=== PATIENT | male | born 1955 ===

== ENCOUNTER 2017-12-06 11:09 | Inpatient (IN) | payer BC ==
[2017-12-06] MEDS ORDERED: Iodixanol 320 mg/ml 150 ml Bottle IV ONE (11:20)
--- NOTE | 2017-12-06 11:30 | CT ---
PROCEDURE: CT HEAD WITHOUT CONTRAST. HISTORY: code stroke COMPARISON: None available. TECHNIQUE: Axial computed tomography images were obtained through the head/brain without intravenous contrast. Radiation dose: Total exam DLP = 884.68 mGy-cm. This CT exam was performed using one or more of the following dose reduction techniques: Automated exposure control, adjustment of the mA and/or kV according to patient size, and/or use of iterative reconstruction technique. FINDINGS: HEMORRHAGE: No intracranial hemorrhage. BRAIN: No mass effect or edema. No atrophy or chronic microvascular ischemic changes. VENTRICLES: Unremarkable. No hydrocephalus. CALVARIUM: Unremarkable. PARANASAL SINUSES: Unremarkable as visualized. No significant inflammatory changes. MASTOID AIR CELLS: Unremarkable as visualized. No inflammatory changes. OTHER FINDINGS: None. IMPRESSION: Normal CT of the Head. No evidence of intracranial hemorrhage. No evidence of acute infarct. The findings in this examination were discussed, by telephone, with BREEZY Guajardo at 11:27 a.m. on 12/06/2017.
[2017-12-06 11:42] LABS: BASO % 0.4 % (0.0-2.0); HEMOGLOBIN 15.5 g/dL (12.0-18.0); LYMPH # 0.7 K/uL (1.0-4.3); LYMPH % 6.6 % (20.0-40.0); MEAN CELL VOLUME 87.3 fL (80.0-94.0); MEAN CORPUSCULAR HEMOGLOBIN 30.2 pg (27.0-31.0); MEAN CORPUSCULAR HGB CONC 34.6 g/dL (33.0-37.0); MEAN PLATELET VOLUME 9.8 fL (7.2-11.7); MONO # 0.4 K/uL (0.0-0.8); MONO % 3.8 % (0.0-10.0); NEUT # 9.1 K/uL (1.8-7.0); NEUT % 89.2 % (50.0-75.0); PLATELET COUNT 215 K/uL (130-400); RBC 5.12 Mil/uL (4.40-5.90); RED CELL DISTRIBUTION WIDTH 13.6 % (11.5-14.5); WHITE BLOOD COUNT 10.2 K/uL (4.8-10.8)
--- NOTE | 2017-12-06 11:49 | C.PDOC ---
History Of Present Illness 62 y/o male presents to ED with complaints of right side persistent paralysis associated with headache and slurred speech that began today after he woke up. Pt states he does not have any medical problems and was feeling fine last night. However, he woke up at 2AM and he was not able to move but went back to sleep and when he woke up again his symptoms worsened. He cannot move his right arm or leg and his speech is slurred. He was brought to ED with EMS, BP elevated and c/o generalized headache. Time Seen by Provider: 12/06/17 11:16 Chief Complaint (Nursing): Weakness/Neurological Deficit History Per: Patient History/Exam Limitations: clinical condition Onset/Duration Of Symptoms: Hrs Current Symptoms Are (Timing): Still Present Activity At Onset Of Symptoms: Lying Associated Symptoms Preceding Syncopal Episode: No Predromal Symptoms (Sudden Onset) Seizure Or Post-ictal Symptoms: None Possible Causative Factor(s): denies: Vertigo, Lightheaded W/Standing, New Medications Fall Associated With With Symptoms: No Recent travel outside of the [place]: No - Symptoms Of CVA Associated Symptoms: Impaired Speech. denies: Seizure Activity, New Vision Deficit(Left), New Vision Deficit(Right) Character Of Deficits: Right: Weakness Recent Head Trauma: No Past Medical History Reviewed: Historical Data, Nursing Documentation, Vital Signs Vital Signs: Last Vital Signs Temp 97.9 F 12/06/17 11:16 Pulse 105 H 12/06/17 12:28 Resp 20 12/06/17 12:28 BP 149/86 12/06/17 12:28 Pulse Ox 97 12/06/17 13:18 - Medical History PMH: No Chronic Diseases Surgical History: No Surg Hx Family History: States: No Known Family Hx - Social History Hx Alcohol Use: No Hx Substance Use: No Review Of Systems Constitutional: Positive for: Other (Slurred speech). Negative for: Fever, Chills Eyes: Negative for: Vision Change Respiratory: Negative for: Cough Gastrointestinal: Negative for: Nausea, Vomiting, Diarrhea Neurological: Positive for: Weakness (Right sided), Headache Physical Exam - Physical Exam Appears: Non-toxic, Other (dense right side paralysis) Skin: Warm, Dry Head: Atraumatic, Normacephalic Eye(s): bilateral: Normal Inspection, PERRL, EOMI Oral Mucosa: Moist Neck: Normal ROM Chest: Symmetrical, No Tenderness Cardiovascular: Rhythm Regular Respiratory: Normal Breath Sounds Gastrointestinal/Abdominal: Soft, No Tenderness Extremity: Other (Cannot move right arm or leg; no sensory loss. Babinski toes: right side equivocal; left toe upgoing) Pulses: Left Carotid: Normal, Right Carotid: Normal Neurological/Psych: Oriented x3, No Normal Speech, Normal Cognition, No Normal Cranial Nerves, No Normal Motor, Normal Sensation, Dysarthria, Other (not ataxic ) Gait: Unable To Assess Other Neurological Findings: Facial Palsy (Right sided), Tongue Deviation ( Right sided) Extremity: Right: No Movement, Left: No Drift, Upper: No Drift, No Movement, Lower: No Drift, No Movement ED Course And Treatment - Laboratory Results Result Diagrams: 12/06/17 11:34 12/06/17 11:34 Lab Interpretation: Abnormal ECG: Interpreted By Nh ECG Rhythm: Sinus Tachycardia (with anterior and inferior infarcts and lateral subendocardial injury/ischemia), R BBB (incomplete) O2 Sat by Pulse Oximetry: 97 (RA) Pulse Ox Interpretation: Normal - Radiology CXR: Interpreted by Nh CXR Interpretation: Yes: No Acute Disease - CT Scan/US CT Angiography of the Brain Other Rad Studies (CT/US): Read By Radiologist, Radiology Report Reviewed CT/US Interpretation: PROCEDURE: CT Angiography of the Brain. HISTORY: right sided paralysis. COMPARISON: None available. TECHNIQUE: CT angiography of the intracranial arteries as well as major arteries through the neck was performed. Coronal and sagittal maximum intensity projection reformated images were generated. This CT exam was performed using one or more of the following dose reduction techniques: Automated exposure control, adjustment of the mA and/ or kV according to patient size, and/or use of iterative reconstruction technique. FINDINGS: INTERNAL CEREBRAL ARTERIES: Unremarkable. The skull base , petrous, cavernous and supraclinoid segments are bilaterally widely patent. ANTERIOR CEREBRAL ARTERIES: Unremarkable. A1 and A2 segments are widely patent. Smaller distal branches unremarkable, as visualized. MIDDLE CEREBRAL ARTERIES: Unremarkable. M1 and M2 segments are widely patent. Perisylvian branches grossly symmetric. POSTERIOR CIRCULATION: Basilar Artery: Unremarkable. Distal Vertebral Arteries: Right dominant vertebrobasilar circulation. Posterior Cerebral Arteries: Unremarkable. Posterior Inferior Cerebellar Arteries: Unremarkable. NECK CTA: Common Carotid arteries: The bilateral common carotid appear widely patent from their origins to their bifurcations with no significant stenosis appreciated. No evidence to suggest common carotid artery dissection. Internal Carotid arteries: No significant stenosis is appreciated throughout the right cervical internal carotid artery segments and there is no evidence of dissection bilaterally either. Minimal right carotid bulbar atherosclerotic plaques identified. Moderate left carotid bulbar plaque is identified resulting and a moderate stenosis of 50 to 60 percent just distal to its origin. External Carotid arteries: Appear unremarkable bilaterally. Vertebral arteries: The right vertebral artery appears normal in caliber from its origins to junction with the basilar artery. High-grade stenosis identified in the proximal as well as of the distal cervical left vertebral artery segment and possibly also proximal to the foramen magnum. The distal most left vertebral artery appears patent nevertheless. Vertebrobasilar system appears right dominant. No definite pattern of dissection. Incidentally, the bilateral subclavian arteries are widely patent as well as the brachiocephalic artery. ANEURYSM/ VASCULAR MALFORMATIONS: None. OTHER FINDINGS: None. IMPRESSION: Symmetric [place] arterial blood flow as well as cavernous internal artery circulation. Right dominant vertebrobasilar circulation identified. Moderate proximal left ICA stenosis immediately distal to its origin. No significant stenosis right ICA. There are least 3 high-grade stenoses involving the left vertebral artery as discussed above with the right vertebral artery and basilar artery widely patent. Distal most left vertebral artery appears patent. CT Head Other Rad Studies (CT/US): Read By Radiologist, Radiology Report Reviewed CT/US Interpretation: PROCEDURE: CT HEAD WITHOUT CONTRAST. HISTORY: code stroke. COMPARISON: None available. TECHNIQUE: Axial computed tomography images were obtained through the head/brain without intravenous contrast. Radiation dose: Total exam DLP = 884.68 mGy-cm. This CT exam was performed using one or more of the following dose reduction techniques: Automated exposure control, adjustment of the mA and/or kV according to patient size, and/ or use of iterative reconstruction technique. FINDINGS: HEMORRHAGE: No intracranial hemorrhage. BRAIN: No mass effect or edema. No atrophy or chronic microvascular ischemic changes. VENTRICLES: Unremarkable. No hydrocephalus. CALVARIUM: Unremarkable. PARANASAL SINUSES: Unremarkable as visualized. No significant inflammatory changes. MASTOID AIR CELLS: Unremarkable as visualized. No inflammatory changes. OTHER FINDINGS: None. IMPRESSION: Normal CT of the Head. No evidence of intracranial hemorrhage. No evidence of acute infarct. The findings in this examination were discussed, by telephone, with BREEZY Guajardo at 11:27 a.m. on 12/06/2017. Progress Note: Ordered BBK, blood work, CXR, and CT head and neck. Reevaluation Time: 12:46 Reassessment Condition: Unchanged - Physician Consult Information Outcome Of Conversation: Case discussed with Dr Martinez and Dr Bae. Patient is not a candidate for TPA due to delayed arrival in ED from onset of symptoms. Integrelin to be ordered by Dr Martinez. Patient is accepted to ICU for care. NIHSS Stroke Scale 2 - Date/Time Evaluation Performed Date Performed: 12/06/17 Time Performed: 11:15 When Was NIHSS Performed: Baseline - How Severe is the Stroke Level of Consciousness: 0=Alert LOC to Questions: 0=Both comments correct LOC to commands: 0=Obeys both correctly Best Gaze: 0=Normal Visual: 0=No visual loss Facial: 3=Complete unilateral paralysis Motor Arm - Left: 0=No drift Motor Arm - Right: 4=No movement Motor Leg - Left: 0=No drift Motor Leg - Right: 4=No movement Limb Ataxia: 0=Absent Sensory: 0=Normal Best Language: 0=No aphasia Dysarthia: 2=Severe, near unintelligible or worse Extinction & Inattention (Neglect): 0=Normal, no object Score: 13 Disposition - Disposition Disposition: HOSPITALIZED Disposition Time: 12:53 Condition: SERIOUS - POA Present On Arrival: None - Clinical Impression Clinical Impression: Acute ischemic stroke, Acute NM - Scribe Statement The provider has reviewed the documentation as recorded by the Abbeyibe Mark Pike All medical record entries made by the Abbeyibpricilla were at my direction and personally dictated by me. I have reviewed the chart and agree that the record accurately reflects my personal performance of the history, physical exam, medical decision making, and the department course for this patient. I have also personally directed, reviewed, and agree with the discharge instructions and disposition.
--- NOTE | 2017-12-06 12:10 | CT ---
PROCEDURE: CT Angiography of the Brain. HISTORY: right sided paralysis COMPARISON: None available. TECHNIQUE: CT angiography of the intracranial arteries as well as major arteries through the neck was performed. Coronal and sagittal maximum intensity projection reformated images were generated. This CT exam was performed using one or more of the following dose reduction techniques: Automated exposure control, adjustment of the mA and/or kV according to patient size, and/or use of iterative reconstruction technique. FINDINGS: INTERNAL CEREBRAL ARTERIES: Unremarkable. The skull base, petrous, cavernous and supraclinoid segments are bilaterally widely patent. ANTERIOR CEREBRAL ARTERIES: Unremarkable. A1 and A2 segments are widely patent. Smaller distal branches unremarkable, as visualized. MIDDLE CEREBRAL ARTERIES: Unremarkable. M1 and M2 segments are widely patent. Perisylvian branches grossly symmetric. POSTERIOR CIRCULATION: Basilar Artery: Unremarkable. Distal Vertebral Arteries: Right dominant vertebrobasilar circulation. Posterior Cerebral Arteries: Unremarkable. Posterior Inferior Cerebellar Arteries: Unremarkable. NECK CTA: Common Carotid arteries: The bilateral common carotid appear widely patent from their origins to their bifurcations with no significant stenosis appreciated. No evidence to suggest common carotid artery dissection. Internal Carotid arteries: No significant stenosis is appreciated throughout the right cervical internal carotid artery segments and there is no evidence of dissection bilaterally either. Minimal right carotid bulbar atherosclerotic plaques identified. Moderate left carotid bulbar plaque is identified resulting and a moderate stenosis of 50 to 60 percent just distal to its origin. External Carotid arteries: Appear unremarkable bilaterally. Vertebral arteries: The right vertebral artery appears normal in caliber from its origins to junction with the basilar artery. High-grade stenosis identified in the proximal as well as of the distal cervical left vertebral artery segment and possibly also proximal to the foramen magnum. The distal most left vertebral artery appears patent nevertheless. Vertebrobasilar system appears right dominant. No definite pattern of dissection. Incidentally, the bilateral subclavian arteries are widely patent as well as the brachiocephalic artery. ANEURYSM/ VASCULAR MALFORMATIONS: None. OTHER FINDINGS: None. IMPRESSION: Symmetric [place] arterial blood flow as well as cavernous internal artery circulation. Right dominant vertebrobasilar circulation identified. Moderate proximal left ICA stenosis immediately distal to its origin. No significant stenosis right ICA. There are least 3 high-grade stenoses involving the left vertebral artery as discussed above with the right vertebral artery and basilar artery widely patent. Distal most left vertebral artery appears patent.
[2017-12-06 12:19] LABS: ALB/GLOB RATIO 1.2 (1.0-2.1); ALBUMIN 4.5 g/dL (3.5-5.0); ALT/SGPT 30 U/L (21-72); AST/SGOT 44 U/L (17-59); BLOOD UREA NITROGEN 16 mg/dL (9-20); CALCIUM 8.8 mg/dl (8.6-10.4); GFR AFRICAN-AMERICAN > 60; GFR NON-AFRICAN AMERICAN > 60; HDL CHOLESTEROL 35 mg/dL (30-70)
[2017-12-06 12:21] LABS: LDL CHOLESTEROL 189 mg/dL (0-129)
[2017-12-06 12:25] LABS: CK-MB 17.2 ng/mL (0.0-3.38)
[2017-12-06] MEDS ORDERED: Sodium Chloride 0.9% 1,000 ML IV ONE ×2 (12:26→12:58)
--- NOTE | 2017-12-06 12:30 | CP.PCM.CON ---
History of Present Illness - History of Present Illness History of Present Illness: Tele-Stroke Vascular Neurology Note: Video IN: 11:50 AM, Video OUT 12:05 PM Mr. Singh is a 62-year-old man with past medical history of hypertension who was last normal last evening, and woke up at around 2 AM, could not move, went back to sleep and woke up again this morning with right side weakness and difficulty with speech. He was brought to the ED by EMS and a code stroke was called at 11:15 AM. He was then taken to the CT scan and there was no significant evidence of ischemic or hemorrhagic changes. There was some concern for a possible area of hypodensity in the pontomedullary junction and the left vertebral artery was not visualized well prior to the vertebrobasilar junction. He was brought back to the room, where I examined him and calculated an NIHSS of 14 for right side hemiplegia, left facial droop and dysarthria with mild sensory changes. Review of Systems - Review of Systems All systems: reviewed and no additional remarkable complaints except Past Patient History - Past Social History Smoking Status: Unknown If Ever Smoked - PSYCHIATRIC Hx Substance Use: No - SURGICAL HISTORY Hx Surgeries: No Meds Allergies/Adverse Reactions: Allergies Allergy/AdvReac Type Severity Reaction Status Date / Time No Known Allergies Allergy Verified 12/06/17 11:14 Physical Exam - Neurological Exam Additional comments: Awake, alert and oriented. Severe dysarthria. CN 6 palsy on the left, and CN 7 palsy on the left. Right side hemiplegia. Left side is normal in motor function. Sensation is relatively preserved. Gait was not assessed. NIHSS = 14. Results - Vital Signs Recent Vital Signs: Last Vital Signs Temp 97.9 F 12/06/17 11:16 Pulse 105 H 12/06/17 11:55 Resp 20 12/06/17 11:55 BP 137/85 12/06/17 11:55 Pulse Ox 97 12/06/17 12:18 - Labs Result Diagrams: 12/06/17 11:34 Labs: Laboratory Results - last 24 hr 12/06/17 12/06/17 12/06/17 11:34 11:34 11:34 WBC 10.2 RBC 5.12 Hgb 15.5 Hct 44.7 MCV 87.3 MCH 30.2 MCHC 34.6 RDW 13.6 Plt Count 215 MPV 9.8 Neut % (Auto) 89.2 H Lymph % (Auto) 6.6 L [place] % (Auto) 3.8 Eos % (Auto) 0.0 Baso % (Auto) 0.4 Neut # 9.1 H Lymph # 0.7 L [place] # 0.4 Eos # 0.0 Baso # 0.0 PT 11.0 INR 1.0 APTT 28 Blood Type A NEGATIVE Assessment & Plan (1) Acute ischemic stroke Assessment and Plan: The patient likely has a brainstem infarct. His last known normal time is last night and therefor he is not a candidate for IV tPA. There is not an obvious large vessel occlusion on CTA, but he may have an occlusion of the vertebral artery, although this may also be a chronic finding. He is unable to swallow ( failed swallow eval), therefor I recommend the followin. Admit to ICU 2. Bolus with Integrillin 70 mcg/kg, and continue drip at 0.5 mcg/kg/min. 3. Keep head of bed at 15 degrees 4. Permissive HTN, only treat BP that is higher than 200/100 mm Hg for the next 24 hours 5. Fluids with NS bolus of 1 liter and continue at 100 mL/hr 6. NPO 7. PT/OT eval and treat 8. Lipid Panel, HbA1c, B12, folate, vitamin D levels 9. Echocardiogram with bubble study 10. MRI of the brain without contrast 11. Case management consult Thank you. Status: Acute Priority: High
[2017-12-06] MEDS ORDERED: Eptifibatide 20 mg/10mL Inj IVP ONE ×2 (12:31→13:07)
[2017-12-06 12:55] LABS: BANDS 1 % (0-2); LYMPHOCYTE 6 % (20-40); MONOCYTE 3 % (0-10); NEUTROPHIL 90 % (50-75); PLATELET ESTIMATE NORMAL (NORMAL); TOTAL CELLS COUNTED 100
[2017-12-06] MEDS: Eptifibatide 0.75 mg/ml 75 MG/100 ML BOTTLE IV SCH (13:25)
--- NOTE | 2017-12-06 14:25 | RAD ---
HISTORY: code stroke COMPARISON: No prior. FINDINGS: LUNGS: No focal consolidation. Coarsened interstitial markings bilaterally predominantly in the upper lobes. Nonspecific. PLEURA: No significant pleural effusion identified, no pneumothorax apparent. CARDIOVASCULAR: Normal. OSSEOUS STRUCTURES: No significant abnormalities. VISUALIZED UPPER ABDOMEN: Normal. OTHER FINDINGS: None. IMPRESSION: Coarsened interstitial markings bilaterally predominantly in the upper lobes. Nonspecific finding. Otherwise unremarkable.
--- NOTE | 2017-12-06 15:35 | CP.PCM.CON ---
History of Present Illness - History of Present Illness History of Present Illness: 62yo M. PMHx HTN. p/w right hemiparesis that started overnight, patient presented outside of tPA window. Admitted to ICU for monitoring while on integrillin drip. Review of Systems - Review of Systems All systems: reviewed and no additional remarkable complaints except - Neurological Neurological: Abnormal Speech, Weakness Past Patient History - Past Medical History & Family History Past Medical History?: Yes - Past Social History Smoking Status: Unknown If Ever Smoked - CARDIAC Hx Hypertension: Yes - PULMONARY Hx Respiratory Disorders: Yes Hx Asthma: Yes - NEUROLOGICAL Hx Neurological Disorder: Yes - HEENT Hx HEENT Problems: No Hx Blind: No Hx Cataracts: No Hx Deafness: No Hx Difficulty Chewing: No Hx Epistaxis: No - RENAL Hx Chronic Kidney Disease: No - ENDOCRINE/METABOLIC Hx Endocrine Disorders: No - HEMATOLOGICAL/ONCOLOGICAL Hx Blood Disorders: No - INTEGUMENTARY Hx Dermatological Problems: No - MUSCULOSKELETAL/RHEUMATOLOGICAL Hx Musculoskeletal Disorders: No - GASTROINTESTINAL Hx Gastrointestinal Disorders: No - GENITOURINARY/GYNECOLOGICAL Hx Genitourinary Disorders: No - PSYCHIATRIC Hx Substance Use: No - SURGICAL HISTORY Hx Surgeries: No - ANESTHESIA Hx Anesthesia: No Hx Anesthesia Reactions: No Hx Malignant Hyperthermia: No Has any member of the family had a problem w/ anesthesia?: No Meds Allergies/Adverse Reactions: Allergies Allergy/AdvReac Type Severity Reaction Status Date / Time No Known Allergies Allergy Verified 12/06/17 11:14 - Medications Medications: Current Medications Eptifibatide (Integrilin) 75 mg in 100 mls @ 2.442 mls/hr IV .Q24H EMMY PRN Reason: 0.5 MCG/KG/MIN Last Admin: 12/06/17 13:25 Dose: 2.442 mls/hr Sodium Chloride (Sodium Chloride 0.9%) 1,000 mls @ 100 mls/hr IV .Q10H ONE Stop: 12/06/17 22:57 Last Admin: 12/06/17 13:09 Dose: 100 mls/hr Physical Exam - Head Exam Head Exam: ATRAUMATIC, NORMAL INSPECTION, NORMOCEPHALIC - Eye Exam Eye Exam: EOMI, Normal appearance, PERRL - ENT Exam ENT Exam: Mucous Membranes Moist, Normal Exam - Respiratory Exam Respiratory Exam: Clear to Auscultation Bilateral, NORMAL BREATHING PATTERN - Cardiovascular Exam Cardiovascular Exam: REGULAR RHYTHM - GI/Abdominal Exam GI & Abdominal Exam: Normal Bowel Sounds, Soft. absent: Tenderness - Neurological Exam Neurological exam: Alert, Oriented x3 (right hemiparesis, right facial droop, left CN3 palsy) Results - Vital Signs Recent Vital Signs: Last Vital Signs Temp 98.2 F 12/06/17 13:30 Pulse 102 H 12/06/17 15:00 Resp 14 12/06/17 15:00 BP 131/82 12/06/17 14:53 Pulse Ox 98 12/06/17 15:00 - Labs Result Diagrams: 12/06/17 11:34 12/06/17 11:34 Labs: Laboratory Results - last 24 hr 12/06/17 12/06/17 12/06/17 11:34 11:34 11:34 WBC 10.2 RBC 5.12 Hgb 15.5 Hct 44.7 MCV 87.3 MCH 30.2 MCHC 34.6 RDW 13.6 Plt Count 215 MPV 9.8 Neut % (Auto) 89.2 H Lymph % (Auto) 6.6 L [place] % (Auto) 3.8 Eos % (Auto) 0.0 Baso % (Auto) 0.4 Neut # 9.1 H Lymph # 0.7 L [place] # 0.4 Eos # 0.0 Baso # 0.0 Neutrophils % (Manual) 90 H Band Neutrophils % 1 Lymphocytes % (Manual) 6 L Monocytes % (Manual) 3 Platelet Estimate Normal RBC Morphology Normal PT 11.0 INR 1.0 APTT 28 Sodium 137 Potassium 3.8 Chloride 102 Carbon Dioxide 22 Anion Gap 17 BUN 16 Creatinine 1.0 Est GFR ( Amer) > 60 Est GFR (Non-Af Amer) > 60 Random Glucose 168 H Calcium 8.8 Total Bilirubin 1.1 AST 44 ALT 30 Alkaline Phosphatase 89 Total Creatine Kinase 416 H CK-MB (Mass) 17.2 H Troponin I 0.6630 H* Total Protein 8.3 Albumin 4.5 Globulin 3.7 Albumin/Globulin Ratio 1.2 Triglycerides 148 Cholesterol 230 H LDL Cholesterol Direct 189 H HDL Cholesterol 35 Blood Type Antibody Screen 12/06/17 11:34 WBC RBC Hgb Hct MCV MCH MCHC RDW Plt Count MPV Neut % (Auto) Lymph % (Auto) [place] % (Auto) Eos % (Auto) Baso % (Auto) Neut # Lymph # [place] # Eos # Baso # Neutrophils % (Manual) Band Neutrophils % Lymphocytes % (Manual) Monocytes % (Manual) Platelet Estimate RBC Morphology PT INR APTT Sodium Potassium Chloride Carbon Dioxide Anion Gap BUN Creatinine Est GFR ( Amer) Est GFR (Non-Af Amer) Random Glucose Calcium Total Bilirubin AST ALT Alkaline Phosphatase Total Creatine Kinase CK-MB (Mass) Troponin I Total Protein Albumin Globulin Albumin/Globulin Ratio Triglycerides Cholesterol LDL Cholesterol Direct HDL Cholesterol Blood Type A NEGATIVE Antibody Screen Negative Assessment & Plan (1) Acute ischemic stroke Assessment and Plan: 62-year-old male with past medical history of hypertension. Presents with acute ischemic stroke. Neuro: Alert and oriented, right hemiparesis. Continue eptifibatide drip for 16 hours, will then repeat head CT. If patient can swallow at that time will give aspirin and Plavix by mouth, if not will give aspirin per rectum. Pulm: No acute issues, breathing spontaneously on room air. CV: Hemodynamically stable. Hem: no acute issues Renal: no acute issues, urine output wnl, will monitor Endo: no acute issues GI: NPO ID: no acute issues DVT proph - eptifibatide drip GI proph - protonix Code status - full code Critical Care Time spent 35 minutes Multi-disciplinary rounds were performed with house staff, nursing, speech therapy, respiratory therapy, pharmacy and nutrition with integrated input from the primary team/attending and other consulting services. The documented time is cumulative and includes review of patient data/exams/labs/chart review and examination of the patient on rounds and throughout the day; time is exclusive of any procedures or teaching time. Status: Acute Priority: High
--- NOTE | 2017-12-06 17:17 | CP.PCM.PN ---
Subjective - Date & Time of Evaluation Date of Evaluation: 12/06/17 Time of Evaluation: 17:20 - Subjective Subjective: H&P dictated #[id number] Objective - Vital Signs/Intake and Output Vital Signs (last 24 hours): Temp Pulse Resp BP Pulse Ox 98.2 F 102 H 14 131/82 98 12/06/17 13:30 12/06/17 15:00 12/06/17 15:00 12/06/17 14:53 12/06/17 15:00 Intake and Output: 12/06/17 12/06/17 06:59 18:59 Intake Total 204.8 Balance 204.8 - Medications Medications: Current Medications Eptifibatide (Integrilin) 75 mg in 100 mls @ 2.442 mls/hr IV .Q24H EMMY PRN Reason: 0.5 MCG/KG/MIN Last Admin: 12/06/17 13:25 Dose: 2.442 mls/hr Sodium Chloride (Sodium Chloride 0.9%) 1,000 mls @ 100 mls/hr IV .Q10H ONE Stop: 12/06/17 22:57 Last Admin: 12/06/17 13:09 Dose: 100 mls/hr - Labs Labs: 12/06/17 11:34 12/06/17 11:34 PT 11.0 SECONDS (9.7-12.2) 12/06/17 11:34 INR 1.0 12/06/17 11:34 APTT 28 SECONDS (21-34) 12/06/17 11:34
[2017-12-06 19:40] LABS: SQUAMOUS EPITHIAL < 1 /hpf (0-5); URINE BACTERIA RARE (<OCC); URINE BILIRUBIN NEGATIVE (NEGATIVE); URINE BLOOD 1+ (NEGATIVE); URINE CLARITY Clear (Clear); URINE COLOR Yellow (YELLOW); URINE GLUCOSE (UA) 1+ mg/dL (Normal); URINE LEUKOCYTE ESTERASE NEG Leu/uL (Negative); URINE NITRATE NEGATIVE (NEGATIVE); URINE PROTEIN 1+ mg/dL (NEGATIVE)
[2017-12-06] MEDS: Sodium Chloride 0.9% 1,000 ML IV SCH (23:12)
--- NOTE | 2017-12-07 05:41 | HP ---
CHIEF COMPLAINT: Right-sided weakness and dysarthria started last night. HISTORY OF PRESENT ILLNESS: Mr. Singh is a 62-year-old male with no significant past medical history, came in to the ED, brought by EMS as the patient was unable to move when he woke up this morning. All the history obtained from the ED physician's note, the patient and the records. As per the patient, he was in his usual state of health until yesterday he went to bed and woke up around 2:00 a.m. this morning, was unable to move in his bed, but went back to sleep. When he woke up this morning, he was not even able to move in his bed and not able to sleep clearly. He was complaining of headache, which was generalized. When he came in to the ED, in the emergency room, the patient was found to be having elevated blood pressure and right-sided hemiplegia with dysarthria and the patient is being admitted for further evaluation and management. When I examined the patient, the patient denies any headache. Denies any dizziness. Denies any chest pain, shortness of breath or wheezing. Denies any nausea, vomiting. Denies any urinary complaints. PAST MEDICAL HISTORY: Denies any past medical history. PAST SURGICAL HISTORY: Denies any past surgical history. FAMILY HISTORY: Unknown to the patient. PERSONAL HISTORY: He is single. Not . Living alone. Does not have any children. He claims he has a cousin, Kinjal Singh and he gave his number as [phone]. SOCIAL HISTORY: He denies smoking. Denies any drug abuse, but he is an ex-alcoholic. Used to drink a lot before, but now he drinks socially. ALLERGIES: NO KNOWN DRUG ALLERGIES. MEDICATIONS: None at home. REVIEW OF SYSTEMS: As described in history of present illness. All other systems reviewed and are found to be negative. PHYSICAL EXAMINATION: GENERAL: A middle-aged male, lying in bed, in no acute distress. VITAL SIGNS: Blood pressure 120/77, pulse 93, respirations 20, temperature 98.1 degrees Fahrenheit. When he came in to the emergency room, his blood pressure was 171/101 with heart rates of 102 to 105. HEENT: Pupils equal, round, reacting to light and accommodation. Extraocular muscles intact. No icterus. No pallor. No oral thrush. No pharyngeal congestion. NECK: Supple. No JVD. LUNGS: Bilateral vesicular breath sounds. No wheezing. No rhonchi. CARDIOVASCULAR SYSTEM: S1 and S2 present, regular. ABDOMEN: Soft, nontender. Bowel sounds present. No guarding. No rigidity. No rebound tenderness noted. CENTRAL NERVOUS SYSTEM: Alert, awake, oriented x3. Speech is slurred. He has double vision. There is loss of nasolabial fold on the right. Slight deviation of the tongue to the right. Very minimal gag reflex. Power, right upper and lower extremities 0/5. Absent reflexes on the right side with right-sided facial droop. Gait did not test. EXTREMITIES: No edema. LABORATORY DATA: Labs done from the ED, WBC 10.2, hemoglobin 15.5, hematocrit 44.7, platelets 215. PT 11, INR 1, PTT 28. Sodium 137, potassium 3.8, chloride 102, bicarb 22, BUN 16, creatinine 1.0, glucose 168, repeat glucose 128, calcium 8.8, total bilirubin 1.1, AST 4.4, ALT 30, alkaline phosphatase 89, CPK 416, troponin 0.663 and the repeat one is is 8.3, albumin 4.5, globulin 3.7, triglycerides 148, cholesterol 230, LDL 189, HDL 35. CT head was normal. Chest x-ray, coarse interstitial markings, bilaterally predominantly in the upper lobes, nonspecific finding, otherwise unremarkable. CT angio of head and neck, symmetric [place], arterial blood flow as well as cavernous internal artery circulation, right dominant vertebrobasilar circulation identified. Moderate proximal left ICA stenosis immediately distal to its origin. No stenosis in the right ICA. ASSESSMENT: A middle-aged male with no significant past medical history, admitted for acute cerebrovascular accident with right-sided hemiplegia and dysarthria. The patient past the window for tissue plasminogen activator. The patient is admitted to intensive care unit for further monitoring and started on Integrilin drip by Neurology. 1. Acute ischemic stroke. 2. Persistently elevated troponin consistent with acute coronary syndrome. 3. Elevated blood pressures. 4. Hyperlipidemia. PLAN: The patient is being admitted to ICU, was given Integrilin and on a drip. We will continue with neuro checks q. 1 hour and monitor his blood pressure closely. We will repeat troponin. We will check EKG and echocardiogram. We will obtain Cardiology evaluation with Dr. Gardiner. We will give statins. The patient is kept n.p.o. I will request physical therapy, occupational therapy and bedside swallow evaluation. We will give IV fluids. Speech evaluation. If unable to swallow, we will start NG tube feeds. Follow up with Neurology. GI prophylaxis with Protonix. We will add further recommendation as his clinical course progresses. Dara Bedoya MD
[2017-12-07 06:51] LABS: BASO # 0.1 K/uL (0.0-0.2); BASO % 0.7 % (0.0-2.0); EOS % 0.2 % (0.0-4.0); HEMOGLOBIN 14.9 g/dL (12.0-18.0); MEAN CELL VOLUME 88.1 fL (80.0-94.0); MEAN CORPUSCULAR HEMOGLOBIN 30.7 pg (27.0-31.0); MEAN CORPUSCULAR HGB CONC 34.8 g/dL (33.0-37.0); MEAN PLATELET VOLUME 10.4 fL (7.2-11.7); MONO # 0.6 K/uL (0.0-0.8); MONO % 6.1 % (0.0-10.0); NEUT # 7.7 K/uL (1.8-7.0); PROTHROMBIN TIME 11.4 SECONDS (9.7-12.2); RBC 4.85 Mil/uL (4.40-5.90); RED CELL DISTRIBUTION WIDTH 13.7 % (11.5-14.5); WHITE BLOOD COUNT 9.3 K/uL (4.8-10.8)
[2017-12-07 07:17] LABS: ALB/GLOB RATIO 1.2 (1.0-2.1); ALBUMIN 3.8 g/dL (3.5-5.0); ALT/SGPT 41 U/L (21-72); AST/SGOT 108 U/L (17-59); BLOOD UREA NITROGEN 13 mg/dL (9-20); CALCIUM 8.4 mg/dl (8.6-10.4); GFR AFRICAN-AMERICAN > 60; GFR NON-AFRICAN AMERICAN > 60
--- NOTE | 2017-12-07 11:18 | CP.PCM.PN ---
Subjective - Date & Time of Evaluation Date of Evaluation: 12/07/17 Time of Evaluation: 11:30 - Subjective Subjective: Progress note dictated #[id number] Objective - Vital Signs/Intake and Output Vital Signs (last 24 hours): Temp Pulse Resp BP Pulse Ox 98.4 F 84 14 124/86 100 12/07/17 08:00 12/07/17 08:15 12/07/17 08:15 12/07/17 08:15 12/07/17 08:15 Intake and Output: 12/07/17 12/07/17 06:59 18:59 Intake Total 1227.6 200 Output Total 900 200 Balance 327.6 0 - Medications Medications: Current Medications Aspirin (Aspirin Supp) 300 mg ND DAILY [facility] Last Admin: 12/07/17 10:41 Dose: 300 mg Clopidogrel Bisulfate (Plavix) 75 mg PO DAILY [facility] Famotidine (Pepcid) 20 mg IVP BID [facility] Eptifibatide (Integrilin) 75 mg in 100 mls @ 2.442 mls/hr IV .Q24H [facility] PRN Reason: 0.5 MCG/KG/MIN Last Admin: 12/06/17 13:25 Dose: 2.442 mls/hr Sodium Chloride (Sodium Chloride 0.9%) 1,000 mls @ 100 mls/hr IV .Q10H [facility] Last Admin: 12/06/17 23:12 Dose: 100 mls/hr Heparin Sodium/Sodium Chloride (Heparin 71863 Units/250ml 1/2 Normal Saline) 25 ,000 units in 250 mls @ 7.337 mls/hr IV .Q24H PRN; Protocol; 12 UNITS/KG/HR PRN Reason: ADJUST RATE PER PROTOCOL Rosuvastatin Calcium (Crestor) 40 mg PO HS [facility] - Labs Labs: 12/07/17 06:38 12/07/17 06:40 PT 11.4 SECONDS (9.7-12.2) 12/07/17 06:38 INR 1.0 12/07/17 06:38 APTT 29 SECONDS (21-34) 12/07/17 06:38
--- NOTE | 2017-12-07 13:02 | CP.PCM.PN ---
Subjective - Date & Time of Evaluation Date of Evaluation: 12/07/17 Time of Evaluation: 12:59 - Subjective Subjective: Ms. Singh was seen and examined at the bedside. He is alert, oriented, able to comprehend questions with garbled speech. There are few words that he was able to speak clearly such as "sometimes, no". He remains with right facial palsy and right side hemiphlegia. He is able to raise his left side upper and lower extremities. He also confirms with nodding or shaking that his blurred vision is intermittent. There was no untoward events overnight. Objective - Vital Signs/Intake and Output Vital Signs (last 24 hours): Temp Pulse Resp BP Pulse Ox 98.4 F 94 H 21 137/88 100 12/07/17 08:00 12/07/17 11:10 12/07/17 11:10 12/07/17 09:53 12/07/17 11:10 Intake and Output: 12/07/17 12/07/17 06:59 18:59 Intake Total 1227.6 500 Output Total 900 200 Balance 327.6 300 - Medications Medications: Current Medications Aspirin (Aspirin Supp) 300 mg NM DAILY [facility] Last Admin: 12/07/17 10:41 Dose: 300 mg Clopidogrel Bisulfate (Plavix) 75 mg PO DAILY [facility] Famotidine (Pepcid) 20 mg IVP BID [facility] Eptifibatide (Integrilin) 75 mg in 100 mls @ 2.442 mls/hr IV .Q24H [facility] PRN Reason: 0.5 MCG/KG/MIN Last Admin: 12/06/17 13:25 Dose: 2.442 mls/hr Sodium Chloride (Sodium Chloride 0.9%) 1,000 mls @ 100 mls/hr IV .Q10H [facility] Last Admin: 12/06/17 23:12 Dose: 100 mls/hr Heparin Sodium/Sodium Chloride (Heparin 32316 Units/250ml 1/2 Normal Saline) 25 ,000 units in 250 mls @ 7.337 mls/hr IV .Q24H PRN; Protocol; 12 UNITS/KG/HR PRN Reason: ADJUST RATE PER PROTOCOL Rosuvastatin Calcium (Crestor) 40 mg PO HS [facility] - Labs Labs: 12/07/17 06:38 12/07/17 06:40 PT 11.4 SECONDS (9.7-12.2) 12/07/17 06:38 INR 1.0 12/07/17 06:38 APTT 29 SECONDS (21-34) 12/07/17 06:38 - Constitutional Appears: No Acute Distress - Head Exam Head Exam: NORMAL INSPECTION - Neurological Exam Neurological Exam: Alert, Awake Neuro motor strength exam: Left Upper Extremity: 4, Right Upper Extremity: 0, Left Lower Extremity: 4, Right Lower Extremity: 0 Additional comments: He is alert, oriented, able to comprehend questions with garbled speech. There are few words that he was able to speak clearly such as "sometimes, no". He remains with right facial palsy and right side hemiphlegia. He is able to raise his left side upper and lower extremities. He also confirms with nodding or shaking that his blurred vision is intermittent. Assessment and Plan (1) Acute ischemic stroke Assessment & Plan: Case discussed with Dr. Martinez, continue all current medical, physical, occupational, and speech therapy. Pending results of repeat CT of the head. Follow up with echocardiogram with bubble study. Status: Acute
--- NOTE | 2017-12-07 13:03 | CT ---
PROCEDURE: CT HEAD WITHOUT CONTRAST. HISTORY: r/o bleed COMPARISON: 12/06/2017 TECHNIQUE: Axial computed tomography images were obtained through the head/brain without intravenous contrast. Radiation dose: Total exam DLP = 783.53 mGy-cm. This CT exam was performed using one or more of the following dose reduction techniques: Automated exposure control, adjustment of the mA and/or kV according to patient size, and/or use of iterative reconstruction technique. FINDINGS: HEMORRHAGE: No intracranial hemorrhage. BRAIN: No mass effect or edema. No atrophy or chronic microvascular ischemic changes. VENTRICLES: Unremarkable. No hydrocephalus. CALVARIUM: Unremarkable. PARANASAL SINUSES: Unremarkable as visualized. No significant inflammatory changes. MASTOID AIR CELLS: Unremarkable as visualized. No inflammatory changes. OTHER FINDINGS: None. IMPRESSION: Normal CT of the Head. No intracranial hemorrhage.
[2017-12-07] MEDS: Sodium Chloride 0.9% 1,000 ML IV SCH ×2 (14:19→20:10)
[2017-12-07] MEDS: Heparin25000 units/250ml 1/2NS 25,000 UNITS/250 ML BAG IV PRN (14:26)
--- NOTE | 2017-12-07 15:37 | CP.CCUPN ---
CCU Subjective - Physician Review Events Since Last Encounter (Free Text): 12/07/17 15:35 no complaints of chest pain. CCU Objective - Vital Signs / Intake & Output Vital Signs (Last 4 hours): Vital Signs Temp Pulse Resp BP Pulse Ox 12/07/17 15:20 103 H 25 H 99 12/07/17 15:10 86 19 99 12/07/17 15:00 92 H 21 97 12/07/17 14:53 79 17 128/85 97 12/07/17 14:50 89 21 99 12/07/17 14:43 93 H 22 132/80 99 12/07/17 14:42 84 18 144/79 99 12/07/17 14:40 96 H 20 97 12/07/17 14:30 92 H 21 99 12/07/17 14:20 92 H 14 100 12/07/17 14:10 107 H 26 H 97 12/07/17 14:00 97 H 24 99 12/07/17 13:53 89 20 144/84 97 12/07/17 13:50 99 H 21 98 12/07/17 13:40 97 H 20 99 12/07/17 13:30 90 20 99 12/07/17 13:20 94 H 20 98 12/07/17 13:10 99 H 21 99 12/07/17 13:00 94 H 20 99 12/07/17 12:53 87 19 137/80 12/07/17 12:50 87 20 100 12/07/17 12:43 90 17 12/07/17 12:20 92 H 18 100 12/07/17 12:10 100 H 18 100 12/07/17 12:00 98.3 F 84 21 100 12/07/17 11:50 93 H 18 100 12/07/17 11:40 83 18 100 Intake and Output (Last 8hrs): Intake & Output 12/07/17 12/07/17 12/07/17 06:59 14:59 22:59 Intake Total 818.0 800 100 Output Total 500 200 Balance 318.0 600 100 Weight 134 lb 12.8 oz Intake: Intake, IV Amount 818.0 800 100 Left Hand 800 800 100 Left Proximal Port Hand 18.0 Output: Urine 500 200 Urine, Voided 500 200 Other: # Voids Urine, Voided 1 - Physical Exam Head: Positive for: Atraumatic, Normocephalic Pupils: Positive for: PERRL Extroacular Muscles: Positive for: EOMI Conjunctiva: Positive for: Normal Mouth: Positive for: Moist Mucous Membranes Respiratory/Chest: Positive for: Clear to Auscultation, Good Air Exchange Cardiovascular: Positive for: Regular Rate and Rhythm Abdomen: Positive for: Normal Bowel Sounds. Negative for: Tenderness, Distention Neurological: Positive for: GCS=15 Psychiatric: Positive for: Alert - Medications Active Medications: Active Medications Generic Name Dose Route Start Last Admin Trade Name Freq PRN Reason Stop Dose Admin Aspirin 300 mg 12/07/17 10:00 12/07/17 10:41 Aspirin Supp MS 300 mg DAILY [facility] Administration Clopidogrel Bisulfate 75 mg 12/07/17 10:00 Plavix PO DAILY [facility] Famotidine 20 mg 12/07/17 10:30 12/07/17 14:25 Pepcid IVP 20 mg BID [facility] Administration Eptifibatide 75 mg in 100 mls @ 2.442 mls/hr 12/06/17 12:30 12/06/17 13:25 Integrilin IV 2.442 mls/hr .Q24H [facility] Administration 0.5 MCG/KG/MIN Sodium Chloride 1,000 mls @ 100 mls/hr 12/06/17 23:15 12/07/17 14:19 Sodium Chloride 0.9% IV 100 mls/hr .Q10H [facility] Administration Heparin Sodium/Sodium Chloride 25,000 units in 250 mls @ 7.337 mls/hr 09:59 12/07/17 14:26 Heparin 45663 Units/250ml 1/2 Normal Saline IV 12 units/kg/hr .Q24H PRN 7.337 mls/hr ADJUST RATE PER PROTOCOL Administration Protocol 12 UNITS/KG/HR Rosuvastatin Calcium 40 mg 12/07/17 10:00 Crestor PO HS [facility] - Patient Studies Lab Studies: Microbiology Studies 12/06/17 15:24 MRSA Culture (Admit) - Final Naris MRSA NOT DETECTED Lab Studies 12/07/17 12/07/17 12/07/17 Range/Units 06:40 06:38 06:38 WBC 9.3 (4.8-10.8) K/uL RBC 4.85 (4.40-5.90) Mil/uL Hgb 14.9 (12.0-18.0) g/dL Hct 42.8 (35.0-51.0) % MCV 88.1 (80.0-94.0) fL MCH 30.7 (27.0-31.0) pg MCHC 34.8 (33.0-37.0) g/dL RDW 13.7 (11.5-14.5) % Plt Count 197 (130-400) K/uL MPV 10.4 (7.2-11.7) fL Neut % (Auto) 82.0 H (50.0-75.0) % Lymph % (Auto) 11.0 L (20.0-40.0) % [place] % (Auto) 6.1 (0.0-10.0) % Eos % (Auto) 0.2 (0.0-4.0) % Baso % (Auto) 0.7 (0.0-2.0) % Neut # 7.7 H (1.8-7.0) K/uL Lymph # 1.0 (1.0-4.3) K/uL [place] # 0.6 (0.0-0.8) K/uL Eos # 0.0 (0.0-0.7) K/uL Baso # 0.1 (0.0-0.2) K/uL PT 11.4 (9.7-12.2) SECONDS INR 1.0 APTT 29 (21-34) SECONDS Sodium 137 (132-148) mmol/L Potassium 3.7 (3.6-5.2) mmol/L Chloride 108 H (98-107) mmol/L Carbon Dioxide 22 (22-30) mmol/L Anion Gap 11 (10-20) BUN 13 (9-20) mg/dL Creatinine 0.9 (0.8-1.5) mg/dL Est GFR ( Amer) > 60 Est GFR (Non-Af Amer) > 60 POC Glucose (mg/dL) (65-110) mg/dL Random Glucose 130 H (75-110) mg/dL Calcium 8.4 L (8.6-10.4) mg/dl Total Bilirubin 1.9 H (0.2-1.3) mg/dL AST 108 H D (17-59) U/L ALT 41 (21-72) U/L Alkaline Phosphatase 80 (38-126) U/L Troponin I (0.00-0.120) ng/mL Total Protein 7.1 (6.3-8.3) g/dL Albumin 3.8 (3.5-5.0) g/dL Globulin 3.3 (2.2-3.9) gm/dL Albumin/Globulin Ratio 1.2 (1.0-2.1) Urine Color (YELLOW) Urine Clarity (Clear) Urine pH (5.0-8.0) Ur Specific [place] (1.003-1.030) Urine Protein (NEGATIVE) mg/dL Urine Glucose (UA) (Normal) mg/dL Urine Ketones (NEGATIVE) mg/dL Urine Blood (NEGATIVE) Urine Nitrate (NEGATIVE) Urine Bilirubin (NEGATIVE) Urine Urobilinogen (0.2-1.0) mg/dL Ur Leukocyte Esterase (Negative) [place]/uL Urine WBC (Auto) (0-5) /hpf Urine RBC (Auto) (0-3) /hpf Ur Squamous Epith Cells (0-5) /hpf Urine Bacteria (<OCC) 12/07/17 12/06/17 12/06/17 Range/Units 00:50 21:12 19:32 WBC (4.8-10.8) K/uL RBC (4.40-5.90) Mil/uL Hgb (12.0-18.0) g/dL Hct (35.0-51.0) % MCV (80.0-94.0) fL MCH (27.0-31.0) pg MCHC (33.0-37.0) g/dL RDW (11.5-14.5) % Plt Count (130-400) K/uL MPV (7.2-11.7) fL Neut % (Auto) (50.0-75.0) % Lymph % (Auto) (20.0-40.0) % [place] % (Auto) (0.0-10.0) % Eos % (Auto) (0.0-4.0) % Baso % (Auto) (0.0-2.0) % Neut # (1.8-7.0) K/uL Lymph # (1.0-4.3) K/uL [place] # (0.0-0.8) K/uL Eos # (0.0-0.7) K/uL Baso # (0.0-0.2) K/uL PT (9.7-12.2) SECONDS INR APTT (21-34) SECONDS Sodium (132-148) mmol/L Potassium (3.6-5.2) mmol/L Chloride (98-107) mmol/L Carbon Dioxide (22-30) mmol/L Anion Gap (10-20) BUN (9-20) mg/dL Creatinine (0.8-1.5) mg/dL Est GFR ( Amer) Est GFR (Non-Af Amer) POC Glucose (mg/dL) 112 H (65-110) mg/dL Random Glucose (75-110) mg/dL Calcium (8.6-10.4) mg/dl Total Bilirubin (0.2-1.3) mg/dL AST (17-59) U/L ALT (21-72) U/L Alkaline Phosphatase (38-126) U/L Troponin I 11.2000 H* (0.00-0.120) ng/mL Total Protein (6.3-8.3) g/dL Albumin (3.5-5.0) g/dL Globulin (2.2-3.9) gm/dL Albumin/Globulin Ratio (1.0-2.1) Urine Color Yellow (YELLOW) Urine Clarity Clear (Clear) Urine pH 5.0 (5.0-8.0) Ur Specific [place] 1.040 H (1.003-1.030) Urine Protein 1+ H (NEGATIVE) mg/dL Urine Glucose (UA) 1+ H (Normal) mg/dL Urine Ketones Trace (NEGATIVE) mg/dL Urine Blood 1+ H (NEGATIVE) Urine Nitrate Negative (NEGATIVE) Urine Bilirubin Negative (NEGATIVE) Urine Urobilinogen 4.0 (0.2-1.0) mg/dL Ur Leukocyte Esterase Neg (Negative) [place]/uL Urine WBC (Auto) < 1 (0-5) /hpf Urine RBC (Auto) 4 H (0-3) /hpf Ur Squamous Epith Cells < 1 (0-5) /hpf Urine Bacteria Rare (<OCC) 12/06/17 12/06/17 Range/Units 17:36 17:28 WBC (4.8-10.8) K/uL RBC (4.40-5.90) Mil/uL Hgb (12.0-18.0) g/dL Hct (35.0-51.0) % MCV (80.0-94.0) fL MCH (27.0-31.0) pg MCHC (33.0-37.0) g/dL RDW (11.5-14.5) % Plt Count (130-400) K/uL MPV (7.2-11.7) fL Neut % (Auto) (50.0-75.0) % Lymph % (Auto) (20.0-40.0) % [place] % (Auto) (0.0-10.0) % Eos % (Auto) (0.0-4.0) % Baso % (Auto) (0.0-2.0) % Neut # (1.8-7.0) K/uL Lymph # (1.0-4.3) K/uL [place] # (0.0-0.8) K/uL Eos # (0.0-0.7) K/uL Baso # (0.0-0.2) K/uL PT (9.7-12.2) SECONDS INR APTT (21-34) SECONDS Sodium (132-148) mmol/L Potassium (3.6-5.2) mmol/L Chloride (98-107) mmol/L Carbon Dioxide (22-30) mmol/L Anion Gap (10-20) BUN (9-20) mg/dL Creatinine (0.8-1.5) mg/dL Est GFR ( Amer) Est GFR (Non-Af Amer) POC Glucose (mg/dL) 128 H (65-110) mg/dL Random Glucose (75-110) mg/dL Calcium (8.6-10.4) mg/dl Total Bilirubin (0.2-1.3) mg/dL AST (17-59) U/L ALT (21-72) U/L Alkaline Phosphatase (38-126) U/L Troponin I 4.4000 H* (0.00-0.120) ng/mL Total Protein (6.3-8.3) g/dL Albumin (3.5-5.0) g/dL Globulin (2.2-3.9) gm/dL Albumin/Globulin Ratio (1.0-2.1) Urine Color (YELLOW) Urine Clarity (Clear) Urine pH (5.0-8.0) Ur Specific [place] (1.003-1.030) Urine Protein (NEGATIVE) mg/dL Urine Glucose (UA) (Normal) mg/dL Urine Ketones (NEGATIVE) mg/dL Urine Blood (NEGATIVE) Urine Nitrate (NEGATIVE) Urine Bilirubin (NEGATIVE) Urine Urobilinogen (0.2-1.0) mg/dL Ur Leukocyte Esterase (Negative) [place]/uL Urine WBC (Auto) (0-5) /hpf Urine RBC (Auto) (0-3) /hpf Ur Squamous Epith Cells (0-5) /hpf Urine Bacteria (<OCC) Laboratory Results - last 24 hr 12/06/17 12/06/17 12/06/17 17:28 17:36 19:32 WBC RBC Hgb Hct MCV MCH MCHC RDW Plt Count MPV Neut % (Auto) Lymph % (Auto) [place] % (Auto) Eos % (Auto) Baso % (Auto) Neut # Lymph # [place] # Eos # Baso # PT INR APTT Sodium Potassium Chloride Carbon Dioxide Anion Gap BUN Creatinine Est GFR ( Amer) Est GFR (Non-Af Amer) POC Glucose (mg/dL) 128 H Random Glucose Calcium Total Bilirubin AST ALT Alkaline Phosphatase Troponin I 4.4000 H* Total Protein Albumin Globulin Albumin/Globulin Ratio Urine Color Yellow Urine Clarity Clear Urine pH 5.0 Ur Specific [place] 1.040 H Urine Protein 1+ H Urine Glucose (UA) 1+ H Urine Ketones Trace Urine Blood 1+ H Urine Nitrate Negative Urine Bilirubin Negative Urine Urobilinogen 4.0 Ur Leukocyte Esterase Neg Urine WBC (Auto) < 1 Urine RBC (Auto) 4 H Ur Squamous Epith Cells < 1 Urine Bacteria Rare 12/06/17 12/07/17 12/07/17 21:12 00:50 06:38 WBC 9.3 RBC 4.85 Hgb 14.9 Hct 42.8 MCV 88.1 MCH 30.7 MCHC 34.8 RDW 13.7 Plt Count 197 MPV 10.4 Neut % (Auto) 82.0 H Lymph % (Auto) 11.0 L [place] % (Auto) 6.1 Eos % (Auto) 0.2 Baso % (Auto) 0.7 Neut # 7.7 H Lymph # 1.0 [place] # 0.6 Eos # 0.0 Baso # 0.1 PT INR APTT Sodium Potassium Chloride Carbon Dioxide Anion Gap BUN Creatinine Est GFR ( Amer) Est GFR (Non-Af Amer) POC Glucose (mg/dL) 112 H Random Glucose Calcium Total Bilirubin AST ALT Alkaline Phosphatase Troponin I 11.2000 H* Total Protein Albumin Globulin Albumin/Globulin Ratio Urine Color Urine Clarity Urine pH Ur Specific [place] Urine Protein Urine Glucose (UA) Urine Ketones Urine Blood Urine Nitrate Urine Bilirubin Urine Urobilinogen Ur Leukocyte Esterase Urine WBC (Auto) Urine RBC (Auto) Ur Squamous Epith Cells Urine Bacteria 12/07/17 12/07/17 06:38 06:40 WBC RBC Hgb Hct MCV MCH MCHC RDW Plt Count MPV Neut % (Auto) Lymph % (Auto) [place] % (Auto) Eos % (Auto) Baso % (Auto) Neut # Lymph # [place] # Eos # Baso # PT 11.4 INR 1.0 APTT 29 Sodium 137 Potassium 3.7 Chloride 108 H Carbon Dioxide 22 Anion Gap 11 BUN 13 Creatinine 0.9 Est GFR ( Amer) > 60 Est GFR (Non-Af Amer) > 60 POC Glucose (mg/dL) Random Glucose 130 H Calcium 8.4 L Total Bilirubin 1.9 H AST 108 H D ALT 41 Alkaline Phosphatase 80 Troponin I Total Protein 7.1 Albumin 3.8 Globulin 3.3 Albumin/Globulin Ratio 1.2 Urine Color Urine Clarity Urine pH Ur Specific [place] Urine Protein Urine Glucose (UA) Urine Ketones Urine Blood Urine Nitrate Urine Bilirubin Urine Urobilinogen Ur Leukocyte Esterase Urine WBC (Auto) Urine RBC (Auto) Ur Squamous Epith Cells Urine Bacteria EKG/Cardiology Studies: Cardiology / EKG Studies 12/07/17 07:00 EKG [ELECTROCARDIOGRAM] DAILY Comment: Mode Of Transportation: Reason For Exam: elevated troponin 12/07/17 09:46 EKG [ELECTROCARDIOGRAM] Stat Comment: Mode Of Transportation: PORTABLE Reason For Exam: Non STEMI Fingerstick Blood Sugar Results: 128 Critical Care Progress Note - Nutrition Nutrition: Nutrition Category Date Time Status NPO Diet [DIET] Diets 12/06/17 Dinner Active Assessment/Plan (1) Acute ischemic stroke Assessment and plan: 62-year-old male with past medical history of hypertension. Presents with acute ischemic stroke. Neuro: Alert and oriented, right hemiparesis persistent. stopped eptifibitide drip. Repeat head CT negative for bleed. Giving ASA and Plavix. Neuro - Dr. Martinez Pulm: No acute issues, breathing spontaneously on room air. CV: Hemodynamically stable. Probable NSTEMI, starting on heparin drip. Cardiology - Dr. Gardiner Hem: no acute issues Renal: no acute issues, urine output wnl, will monitor Endo: no acute issues GI: NPO ID: no acute issues DVT proph - eptifibatide drip GI proph - protonix Code status - full code Critical Care Time spent 35 minutes Multi-disciplinary rounds were performed with house staff, nursing, speech therapy, respiratory therapy, pharmacy and nutrition with integrated input from the primary team/attending and other consulting services. The documented time is cumulative and includes review of patient data/exams/labs/chart review and examination of the patient on rounds and throughout the day; time is exclusive of any procedures or teaching time. Current Visit: Yes Status: Acute Priority: High
--- NOTE | 2017-12-07 19:02 | PN ---
DATE: 12/07/2017 SUBJECTIVE: Patient is seen and examined at bedside. Patient's symptoms remained the same, remained dysarthric, complaining of double vision, right dense hemiplegia. Denies any headache, dizziness. Denies any chest pain. Denies any nausea, vomiting, abdominal pain, or any other new neurologic symptoms. REVIEW OF SYSTEMS: All other systems reviewed and were found to be negative. PHYSICAL EXAMINATION: GENERAL: Middle-aged male lying in bed, in no acute distress. VITAL SIGNS: Blood pressure 137/88, pulse 87, respirations 20, temperature 98.6 degrees Fahrenheit, O2 saturations 100% on room air. Intake is 1739 mL, output is 900 mL. HEENT: Pupils equal, round, reacting to light and accommodation. Extraocular muscles are intact. No icterus. No pallor. No oral thrush. Dry mucous membranes. NECK: Supple. No JVD. LUNGS: Bilateral vesicular breath sounds. No wheezing. No rhonchi. CARDIOVASCULAR SYSTEM: S1 and S2 present, regular. ABDOMEN: Soft, nontender. Bowel sounds present. No guarding. No rigidity. No rebound tenderness noted. CENTRAL NERVOUS SYSTEM: Alert, awake, oriented x3, dysarthric, double vision. Right-sided dense hemiplegia with power 0/5, both right upper and lower extremities and absent reflexes in the right upper and lower extremities. EXTREMITIES: No edema. Palpable peripheral pulses. MEDICATIONS: Include aspirin 300 mg per rectally daily, Plavix 75 mg daily, Integrilin, Pepcid 20 mg IV b.i.d., heparin 12 units/kg/hour, Crestor 40 mg daily, normal saline 100 mL an hour. LABORATORY DATA: :Labs done from this morning, WBC 9.3, hemoglobin 14.9, hematocrit 42.8, platelets 197. PT 11.4, INR 1.0, PTT 29. Sodium 137, potassium 3.7, chloride 108, bicarbonate 22, BUN 13, creatinine 0.9, glucose 130, calcium 8.4, total bilirubin 1.9, AST 108, ALT 41, alkaline phosphatase 80, troponin is 4.4 and repeat one is 11.2. Total protein 7.1, albumin 3.8, cholesterol 230, LDL 189, HDL 35. UA: Specific gravity 1.040, pH 5, protein 1+, glucose 1+, blood 1+. Repeat head CT pending from this morning. ASSESSMENT AND PLAN: Middle-aged male with no significant past medical history, admitted from acute cerebrovascular accident with right hemiplegia, acute coronary syndrome, hyperlipidemia. Patient's neurologic symptoms remained the same, status post Integrilin drip and intravenous heparin, awaiting for swallow evaluation. We will start tube feeds if fails swallow evaluation. We will monitor his neurologic status closely. Respiratory boykin, is stable. I will give aspirin Plavix, and Crestor as ordered. Follow up with repeat CT results. Gastrointestinal prophylaxis with Pepcid. We will follow up with Neurology and Cardiology. Will add further recommendation as his clinical course progresses. Long-term prognosis is guarded. Physical therapy and occupational therapy at bedside requested. Dara Bedoya MD
[2017-12-07] MEDS: Eptifibatide 0.75 mg/ml 75 MG/100 ML BOTTLE IV SCH (21:45)
--- NOTE | 2017-12-07 22:29 | CP.PCM.CON ---
History of Present Illness - History of Present Illness History of Present Illness: 62 M admitted for Lt. CVA with Right sided hemipleagia/Hemiparesis also suffered Acute Coronary syndrome with Troponin of 11.2 Patient denies chest pain or dyspnea Started on Heparin IV, ASA, Plavix and Statins Once patient neurologically stable needs Cardiac cath Will initiate B blockers as soon as possible Check ECHO Past Patient History - Past Medical History & Family History Past Medical History?: Yes - Past Social History Smoking Status: Unknown If Ever Smoked - CARDIAC Hx Hypertension: Yes - PULMONARY Hx Respiratory Disorders: Yes Hx Asthma: Yes - NEUROLOGICAL Hx Neurological Disorder: Yes - HEENT Hx HEENT Problems: No Hx Blind: No Hx Cataracts: No Hx Deafness: No Hx Difficulty Chewing: No Hx Epistaxis: No - RENAL Hx Chronic Kidney Disease: No - ENDOCRINE/METABOLIC Hx Endocrine Disorders: No - HEMATOLOGICAL/ONCOLOGICAL Hx Blood Disorders: No - INTEGUMENTARY Hx Dermatological Problems: No - MUSCULOSKELETAL/RHEUMATOLOGICAL Hx Musculoskeletal Disorders: No - GASTROINTESTINAL Hx Gastrointestinal Disorders: No - GENITOURINARY/GYNECOLOGICAL Hx Genitourinary Disorders: No - PSYCHIATRIC Hx Substance Use: No - SURGICAL HISTORY Hx Surgeries: No - ANESTHESIA Hx Anesthesia: No Hx Anesthesia Reactions: No Hx Malignant Hyperthermia: No Has any member of the family had a problem w/ anesthesia?: No Meds Allergies/Adverse Reactions: Allergies Allergy/AdvReac Type Severity Reaction Status Date / Time No Known Allergies Allergy Verified 12/06/17 11:14 - Medications Medications: Current Medications Aspirin (Aspirin Supp) 300 mg AK DAILY [facility] Last Admin: 12/07/17 10:41 Dose: 300 mg Clopidogrel Bisulfate (Plavix) 75 mg PO DAILY [facility] Last Admin: 12/07/17 16:56 Dose: 75 mg Famotidine (Pepcid) 20 mg IVP BID [facility] Last Admin: 12/07/17 21:44 Dose: 20 mg Eptifibatide (Integrilin) 75 mg in 100 mls @ 2.442 mls/hr IV .Q24H [facility] PRN Reason: 0.5 MCG/KG/MIN Last Admin: 12/07/17 21:45 Dose: Not Given Sodium Chloride (Sodium Chloride 0.9%) 1,000 mls @ 100 mls/hr IV .Q10H [facility] Last Admin: 12/07/17 20:10 Dose: Not Given Heparin Sodium/Sodium Chloride (Heparin 61065 Units/250ml 1/2 Normal Saline) 25 ,000 units in 250 mls @ 7.337 mls/hr IV .Q24H PRN; Protocol; 12 UNITS/KG/HR PRN Reason: ADJUST RATE PER PROTOCOL Last Admin: 12/07/17 14:26 Dose: 12 units/kg/hr, 7.337 mls/hr Rosuvastatin Calcium (Crestor) 40 mg PO HS EMMY Last Admin: 12/07/17 21:44 Dose: 40 mg Results - Vital Signs Recent Vital Signs: Last Vital Signs Temp 98.2 F 12/07/17 20:00 Pulse 106 H 12/07/17 20:50 Resp 23 12/07/17 20:50 BP 133/85 12/07/17 19:53 Pulse Ox 94 L 12/07/17 20:50 - Labs Result Diagrams: 12/07/17 06:38 12/07/17 06:40 Labs: Laboratory Results - last 24 hr 12/07/17 12/07/17 12/07/17 00:50 06:38 06:38 WBC 9.3 RBC 4.85 Hgb 14.9 Hct 42.8 MCV 88.1 MCH 30.7 MCHC 34.8 RDW 13.7 Plt Count 197 MPV 10.4 Neut % (Auto) 82.0 H Lymph % (Auto) 11.0 L [place] % (Auto) 6.1 Eos % (Auto) 0.2 Baso % (Auto) 0.7 Neut # 7.7 H Lymph # 1.0 [place] # 0.6 Eos # 0.0 Baso # 0.1 PT 11.4 INR 1.0 APTT 29 Sodium Potassium Chloride Carbon Dioxide Anion Gap BUN Creatinine Est GFR ( Amer) Est GFR (Non-Af Amer) POC Glucose (mg/dL) Random Glucose Calcium Total Bilirubin AST ALT Alkaline Phosphatase Troponin I 11.2000 H* Total Protein Albumin Globulin Albumin/Globulin Ratio 12/07/17 12/07/17 12/07/17 06:40 08:42 11:38 WBC RBC Hgb Hct MCV MCH MCHC RDW Plt Count MPV Neut % (Auto) Lymph % (Auto) [place] % (Auto) Eos % (Auto) Baso % (Auto) Neut # Lymph # [place] # Eos # Baso # PT INR APTT Sodium 137 Potassium 3.7 Chloride 108 H Carbon Dioxide 22 Anion Gap 11 BUN 13 Creatinine 0.9 Est GFR ( Amer) > 60 Est GFR (Non-Af Amer) > 60 POC Glucose (mg/dL) 107 116 H Random Glucose 130 H Calcium 8.4 L Total Bilirubin 1.9 H AST 108 H D ALT 41 Alkaline Phosphatase 80 Troponin I Total Protein 7.1 Albumin 3.8 Globulin 3.3 Albumin/Globulin Ratio 1.2 12/07/17 12/07/17 12/07/17 16:13 17:15 20:42 WBC RBC Hgb Hct MCV MCH MCHC RDW Plt Count MPV Neut % (Auto) Lymph % (Auto) [place] % (Auto) Eos % (Auto) Baso % (Auto) Neut # Lymph # [place] # Eos # Baso # PT INR APTT 45 H D Sodium Potassium Chloride Carbon Dioxide Anion Gap BUN Creatinine Est GFR ( Amer) Est GFR (Non-Af Amer) POC Glucose (mg/dL) 136 H Random Glucose Calcium Total Bilirubin AST ALT Alkaline Phosphatase Troponin I 6.9700 H* Total Protein Albumin Globulin Albumin/Globulin Ratio 12/07/17 21:09 WBC RBC Hgb Hct MCV MCH MCHC RDW Plt Count MPV Neut % (Auto) Lymph % (Auto) [place] % (Auto) Eos % (Auto) Baso % (Auto) Neut # Lymph # [place] # Eos # Baso # PT INR APTT Sodium Potassium Chloride Carbon Dioxide Anion Gap BUN Creatinine Est GFR ( Amer) Est GFR (Non-Af Amer) POC Glucose (mg/dL) 100 Random Glucose Calcium Total Bilirubin AST ALT Alkaline Phosphatase Troponin I Total Protein Albumin Globulin Albumin/Globulin Ratio
[2017-12-08] MEDS: Sodium Chloride 0.9% 1,000 ML IV SCH ×2 (00:12→07:38)
[2017-12-08 03:15] LABS: BASO # 0.1 K/uL (0.0-0.2); BASO % 0.8 % (0.0-2.0); EOS % 0.4 % (0.0-4.0); LYMPH # 1.3 K/uL (1.0-4.3); LYMPH % 13.1 % (20.0-40.0); MEAN CELL VOLUME 87.7 fL (80.0-94.0); MEAN CORPUSCULAR HEMOGLOBIN 30.1 pg (27.0-31.0); MEAN CORPUSCULAR HGB CONC 34.3 g/dL (33.0-37.0); MONO # 0.7 K/uL (0.0-0.8); NEUT # 7.6 K/uL (1.8-7.0); NEUT % 78.7 % (50.0-75.0); RBC 4.63 Mil/uL (4.40-5.90); RED CELL DISTRIBUTION WIDTH 13.5 % (11.5-14.5); WHITE BLOOD COUNT 9.6 K/uL (4.8-10.8)
[2017-12-08 04:04] LABS: ALB/GLOB RATIO 1.1 (1.0-2.1); ALBUMIN 3.4 g/dL (3.5-5.0); ALT/SGPT 32 U/L (21-72); AST/SGOT 60 U/L (17-59); BLOOD UREA NITROGEN 10 mg/dL (9-20); GFR AFRICAN-AMERICAN > 60; GFR NON-AFRICAN AMERICAN > 60; MAGNESIUM 1.7 mg/dL (1.6-2.3)
--- NOTE | 2017-12-08 08:20 | CP.CCUPN ---
<Jake Juarez - Last Filed: 12/08/17 11:49> CCU Subjective - Physician Review Subjective (Free Text): 12/08/17 08:17 Patient seen and examined at bedside. Awake and alert dysarthria R. sided facial droop right sided hemiplegia stable for cardiac cath pending neuro clearence. 12/08/17 11:49 developed some wheezing repeat cxr, lasix CCU Objective - Vital Signs / Intake & Output Vital Signs (Last 4 hours): Vital Signs Pulse Resp BP Pulse Ox 12/08/17 07:40 82 20 95 12/08/17 07:30 81 20 96 12/08/17 07:20 90 21 95 12/08/17 07:10 96 H 21 96 12/08/17 07:00 87 19 95 12/08/17 06:53 89 19 114/69 12/08/17 06:50 84 19 95 12/08/17 06:40 87 19 97 12/08/17 06:30 92 H 20 96 12/08/17 06:20 82 19 97 12/08/17 06:10 87 20 96 12/08/17 06:00 95 H 23 99 12/08/17 05:53 96 H 22 133/79 96 12/08/17 05:50 91 H 22 97 12/08/17 05:40 96 H 94 L 12/08/17 05:30 94 H 94 L 12/08/17 05:20 102 H 94 L 12/08/17 05:10 102 H 22 94 L 12/08/17 05:00 99 H 20 94 L 12/08/17 04:53 98 H 23 134/73 93 L 12/08/17 04:50 96 H 19 95 12/08/17 04:40 101 H 24 93 L 12/08/17 04:30 102 H 24 94 L 12/08/17 04:20 97 H 22 93 L Intake and Output (Last 8hrs): Intake & Output 12/07/17 12/08/17 12/08/17 22:59 06:59 14:59 Intake Total 958.4 858.4 107.3 Output Total 400 300 Balance 558.4 558.4 107.3 Weight 138 lb 12.8 oz Intake: Intake, IV Amount 858.4 858.4 107.3 Left Hand 800 800 100 Right Antecubital 58.4 58.4 7.3 Tube Feeding 100 Output: Urine 400 300 Urine, Voided 400 300 - Physical Exam Head: Positive for: Atraumatic, Normocephalic Pupils: Positive for: PERRL Extroacular Muscles: Positive for: EOMI Conjunctiva: Positive for: Normal Mouth: Positive for: Moist Mucous Membranes Respiratory/Chest: Positive for: Clear to Auscultation, Good Air Exchange Cardiovascular: Positive for: Regular Rate and Rhythm Abdomen: Positive for: Normal Bowel Sounds. Negative for: Tenderness, Distention Neurological: Positive for: GCS=15, Other (R. hemiplegia) Psychiatric: Positive for: Alert - Medications Active Medications: Active Medications Generic Name Dose Route Start Last Admin Trade Name Freq PRN Reason Stop Dose Admin Aspirin 300 mg 12/07/17 10:00 12/07/17 10:41 Aspirin Supp MO 300 mg DAILY EMMY Administration Clopidogrel Bisulfate 75 mg 12/07/17 10:00 12/07/17 16:56 Plavix PO 75 mg DAILY EMMY Administration Famotidine 20 mg 12/07/17 10:30 12/07/17 21:44 Pepcid IVP 20 mg BID EMMY Administration Eptifibatide 75 mg in 100 mls @ 2.442 mls/hr 12/06/17 12:30 12/07/17 21:45 Integrilin IV Not Given .Q24H EMMY 0.5 MCG/KG/MIN Sodium Chloride 1,000 mls @ 100 mls/hr 12/06/17 23:15 12/08/17 07:38 Sodium Chloride 0.9% IV Not Given .Q10H EMMY Heparin Sodium/Sodium Chloride 25,000 units in 250 mls @ 7.337 mls/hr 09:59 12/07/17 14:26 Heparin 88080 Units/250ml 1/2 Normal Saline IV 12 units/kg/hr .Q24H PRN 7.337 mls/hr ADJUST RATE PER PROTOCOL Administration Protocol 12 UNITS/KG/HR Rosuvastatin Calcium 40 mg 12/07/17 10:00 12/07/17 21:44 Crestor PO 40 mg HS EMMY Administration - Patient Studies Lab Studies: Microbiology Studies 12/06/17 15:24 MRSA Culture (Admit) - Final Naris MRSA NOT DETECTED Lab Studies 12/08/17 12/08/17 12/08/17 Range/Units 07:22 03:08 03:05 WBC (4.8-10.8) K/uL RBC (4.40-5.90) Mil/uL Hgb (12.0-18.0) g/dL Hct (35.0-51.0) % MCV (80.0-94.0) fL MCH (27.0-31.0) pg MCHC (33.0-37.0) g/dL RDW (11.5-14.5) % Plt Count (130-400) K/uL MPV (7.2-11.7) fL Neut % (Auto) (50.0-75.0) % Lymph % (Auto) (20.0-40.0) % [place] % (Auto) (0.0-10.0) % Eos % (Auto) (0.0-4.0) % Baso % (Auto) (0.0-2.0) % Neut # (1.8-7.0) K/uL Lymph # (1.0-4.3) K/uL [place] # (0.0-0.8) K/uL Eos # (0.0-0.7) K/uL Baso # (0.0-0.2) K/uL APTT 52 H D (21-34) SECONDS Sodium 136 (132-148) mmol/L Potassium 3.4 L (3.6-5.2) mmol/L Chloride 108 H (98-107) mmol/L Carbon Dioxide 20 L (22-30) mmol/L Anion Gap 11 (10-20) BUN 10 (9-20) mg/dL Creatinine 0.9 (0.8-1.5) mg/dL Est GFR ( Amer) > 60 Est GFR (Non-Af Amer) > 60 POC Glucose (mg/dL) 108 (65-110) mg/dL Random Glucose 118 H (75-110) mg/dL Calcium 8.0 L (8.6-10.4) mg/dl Phosphorus 2.4 L (2.5-4.5) mg/dL Magnesium 1.7 (1.6-2.3) mg/dL Total Bilirubin 1.7 H (0.2-1.3) mg/dL AST 60 H D (17-59) U/L ALT 32 (21-72) U/L Alkaline Phosphatase 73 (38-126) U/L Troponin I (0.00-0.120) ng/mL Total Protein 6.6 (6.3-8.3) g/dL Albumin 3.4 L (3.5-5.0) g/dL Globulin 3.2 (2.2-3.9) gm/dL Albumin/Globulin Ratio 1.1 (1.0-2.1) 12/08/17 12/07/17 12/07/17 Range/Units 03:05 21:09 20:42 WBC 9.6 (4.8-10.8) K/uL RBC 4.63 (4.40-5.90) Mil/uL Hgb 14.0 (12.0-18.0) g/dL Hct 40.7 (35.0-51.0) % MCV 87.7 (80.0-94.0) fL MCH 30.1 (27.0-31.0) pg MCHC 34.3 (33.0-37.0) g/dL RDW 13.5 (11.5-14.5) % Plt Count 158 (130-400) K/uL MPV 10.0 (7.2-11.7) fL Neut % (Auto) 78.7 H (50.0-75.0) % Lymph % (Auto) 13.1 L (20.0-40.0) % [place] % (Auto) 7.0 (0.0-10.0) % Eos % (Auto) 0.4 (0.0-4.0) % Baso % (Auto) 0.8 (0.0-2.0) % Neut # 7.6 H (1.8-7.0) K/uL Lymph # 1.3 (1.0-4.3) K/uL [place] # 0.7 (0.0-0.8) K/uL Eos # 0.0 (0.0-0.7) K/uL Baso # 0.1 (0.0-0.2) K/uL APTT 45 H D (21-34) SECONDS Sodium (132-148) mmol/L Potassium (3.6-5.2) mmol/L Chloride (98-107) mmol/L Carbon Dioxide (22-30) mmol/L Anion Gap (10-20) BUN (9-20) mg/dL Creatinine (0.8-1.5) mg/dL Est GFR ( Amer) Est GFR (Non-Af Amer) POC Glucose (mg/dL) 100 (65-110) mg/dL Random Glucose (75-110) mg/dL Calcium (8.6-10.4) mg/dl Phosphorus (2.5-4.5) mg/dL Magnesium (1.6-2.3) mg/dL Total Bilirubin (0.2-1.3) mg/dL AST (17-59) U/L ALT (21-72) U/L Alkaline Phosphatase (38-126) U/L Troponin I (0.00-0.120) ng/mL Total Protein (6.3-8.3) g/dL Albumin (3.5-5.0) g/dL Globulin (2.2-3.9) gm/dL Albumin/Globulin Ratio (1.0-2.1) 12/07/17 12/07/17 12/07/17 Range/Units 17:15 16:13 11:38 WBC (4.8-10.8) K/uL RBC (4.40-5.90) Mil/uL Hgb (12.0-18.0) g/dL Hct (35.0-51.0) % MCV (80.0-94.0) fL MCH (27.0-31.0) pg MCHC (33.0-37.0) g/dL RDW (11.5-14.5) % Plt Count (130-400) K/uL MPV (7.2-11.7) fL Neut % (Auto) (50.0-75.0) % Lymph % (Auto) (20.0-40.0) % [place] % (Auto) (0.0-10.0) % Eos % (Auto) (0.0-4.0) % Baso % (Auto) (0.0-2.0) % Neut # (1.8-7.0) K/uL Lymph # (1.0-4.3) K/uL [place] # (0.0-0.8) K/uL Eos # (0.0-0.7) K/uL Baso # (0.0-0.2) K/uL APTT (21-34) SECONDS Sodium (132-148) mmol/L Potassium (3.6-5.2) mmol/L Chloride (98-107) mmol/L Carbon Dioxide (22-30) mmol/L Anion Gap (10-20) BUN (9-20) mg/dL Creatinine (0.8-1.5) mg/dL Est GFR ( Amer) Est GFR (Non-Af Amer) POC Glucose (mg/dL) 136 H 116 H (65-110) mg/dL Random Glucose (75-110) mg/dL Calcium (8.6-10.4) mg/dl Phosphorus (2.5-4.5) mg/dL Magnesium (1.6-2.3) mg/dL Total Bilirubin (0.2-1.3) mg/dL AST (17-59) U/L ALT (21-72) U/L Alkaline Phosphatase (38-126) U/L Troponin I 6.9700 H* (0.00-0.120) ng/mL Total Protein (6.3-8.3) g/dL Albumin (3.5-5.0) g/dL Globulin (2.2-3.9) gm/dL Albumin/Globulin Ratio (1.0-2.1) 12/07/17 Range/Units 08:42 WBC (4.8-10.8) K/uL RBC (4.40-5.90) Mil/uL Hgb (12.0-18.0) g/dL Hct (35.0-51.0) % MCV (80.0-94.0) fL MCH (27.0-31.0) pg MCHC (33.0-37.0) g/dL RDW (11.5-14.5) % Plt Count (130-400) K/uL MPV (7.2-11.7) fL Neut % (Auto) (50.0-75.0) % Lymph % (Auto) (20.0-40.0) % [place] % (Auto) (0.0-10.0) % Eos % (Auto) (0.0-4.0) % Baso % (Auto) (0.0-2.0) % Neut # (1.8-7.0) K/uL Lymph # (1.0-4.3) K/uL [place] # (0.0-0.8) K/uL Eos # (0.0-0.7) K/uL Baso # (0.0-0.2) K/uL APTT (21-34) SECONDS Sodium (132-148) mmol/L Potassium (3.6-5.2) mmol/L Chloride (98-107) mmol/L Carbon Dioxide (22-30) mmol/L Anion Gap (10-20) BUN (9-20) mg/dL Creatinine (0.8-1.5) mg/dL Est GFR ( Amer) Est GFR (Non-Af Amer) POC Glucose (mg/dL) 107 (65-110) mg/dL Random Glucose (75-110) mg/dL Calcium (8.6-10.4) mg/dl Phosphorus (2.5-4.5) mg/dL Magnesium (1.6-2.3) mg/dL Total Bilirubin (0.2-1.3) mg/dL AST (17-59) U/L ALT (21-72) U/L Alkaline Phosphatase (38-126) U/L Troponin I (0.00-0.120) ng/mL Total Protein (6.3-8.3) g/dL Albumin (3.5-5.0) g/dL Globulin (2.2-3.9) gm/dL Albumin/Globulin Ratio (1.0-2.1) Laboratory Results - last 24 hr 12/07/17 12/07/17 12/07/17 08:42 11:38 16:13 WBC RBC Hgb Hct MCV MCH MCHC RDW Plt Count MPV Neut % (Auto) Lymph % (Auto) [place] % (Auto) Eos % (Auto) Baso % (Auto) Neut # Lymph # [place] # Eos # Baso # APTT Sodium Potassium Chloride Carbon Dioxide Anion Gap BUN Creatinine Est GFR ( Amer) Est GFR (Non-Af Amer) POC Glucose (mg/dL) 107 116 H 136 H Random Glucose Calcium Phosphorus Magnesium Total Bilirubin AST ALT Alkaline Phosphatase Troponin I Total Protein Albumin Globulin Albumin/Globulin Ratio 12/07/17 12/07/17 12/07/17 17:15 20:42 21:09 WBC RBC Hgb Hct MCV MCH MCHC RDW Plt Count MPV Neut % (Auto) Lymph % (Auto) [place] % (Auto) Eos % (Auto) Baso % (Auto) Neut # Lymph # [place] # Eos # Baso # APTT 45 H D Sodium Potassium Chloride Carbon Dioxide Anion Gap BUN Creatinine Est GFR ( Amer) Est GFR (Non-Af Amer) POC Glucose (mg/dL) 100 Random Glucose Calcium Phosphorus Magnesium Total Bilirubin AST ALT Alkaline Phosphatase Troponin I 6.9700 H* Total Protein Albumin Globulin Albumin/Globulin Ratio 12/08/17 12/08/17 12/08/17 03:05 03:05 03:08 WBC 9.6 RBC 4.63 Hgb 14.0 Hct 40.7 MCV 87.7 MCH 30.1 MCHC 34.3 RDW 13.5 Plt Count 158 MPV 10.0 Neut % (Auto) 78.7 H Lymph % (Auto) 13.1 L [place] % (Auto) 7.0 Eos % (Auto) 0.4 Baso % (Auto) 0.8 Neut # 7.6 H Lymph # 1.3 [place] # 0.7 Eos # 0.0 Baso # 0.1 APTT 52 H D Sodium 136 Potassium 3.4 L Chloride 108 H Carbon Dioxide 20 L Anion Gap 11 BUN 10 Creatinine 0.9 Est GFR ( Amer) > 60 Est GFR (Non-Af Amer) > 60 POC Glucose (mg/dL) Random Glucose 118 H Calcium 8.0 L Phosphorus 2.4 L Magnesium 1.7 Total Bilirubin 1.7 H AST 60 H D ALT 32 Alkaline Phosphatase 73 Troponin I Total Protein 6.6 Albumin 3.4 L Globulin 3.2 Albumin/Globulin Ratio 1.1 12/08/17 07:22 WBC RBC Hgb Hct MCV MCH MCHC RDW Plt Count MPV Neut % (Auto) Lymph % (Auto) [place] % (Auto) Eos % (Auto) Baso % (Auto) Neut # Lymph # [place] # Eos # Baso # APTT Sodium Potassium Chloride Carbon Dioxide Anion Gap BUN Creatinine Est GFR ( Amer) Est GFR (Non-Af Amer) POC Glucose (mg/dL) 108 Random Glucose Calcium Phosphorus Magnesium Total Bilirubin AST ALT Alkaline Phosphatase Troponin I Total Protein Albumin Globulin Albumin/Globulin Ratio EKG/Cardiology Studies: Cardiology / EKG Studies 12/07/17 09:46 EKG [ELECTROCARDIOGRAM] Stat Comment: Mode Of Transportation: PORTABLE Reason For Exam: Non STEMI Fingerstick Blood Sugar Results: 128 Critical Care Progress Note - Nutrition Nutrition: Nutrition Category Date Time Status NPO Diet [DIET] Diets 12/06/17 Dinner Active Assessment/Plan - Assessment and Plan (Free Text) Assessment: 62-year-old male with past medical history of hypertension. Presents with acute ischemic stroke. Neuro: Alert and oriented, right hemiparesis persistent. Neuro ([place]) Repeat head CT negative for bleed. ASA and Plavix. PTOT OOB to chair Pulm: wheezing on exam CXR shows no obvious infiltrate or edema Discontinue NS Lasix 20 IV BID CV: Hemodynamically stable. NSTEMI, starting on heparin drip. Cardiology - Dr. Abdifatah de la cruzpressor 12.5 BID Hem: no acute issues Renal: no acute issues, urine output wnl, will monitor Endo: no acute issues GI: Puree necter thick ID: no acute issues DVT proph - heparin drip GI proph - protonix Code status - full code <Rama Mobley - Last Filed: 12/11/17 02:38> CCU Objective - Vital Signs / Intake & Output Intake and Output (Last 8hrs): Intake & Output 12/10/17 12/10/17 12/11/17 14:59 22:59 06:59 Intake Total 528.2 Output Total 420 Balance 108.2 Intake: Intake, IV Amount 258.2 Left Forearm 58.2 Right Antecubital 200 Oral 270 Output: Stool 420 Other: # Bowel Movements 2 - Patient Studies Lab Studies: Lab Studies 12/10/17 12/10/17 12/10/17 Range/Units 11:43 07:30 05:36 WBC (4.8-10.8) K/uL RBC (4.40-5.90) Mil/uL Hgb (12.0-18.0) g/dL Hct (35.0-51.0) % MCV (80.0-94.0) fL MCH (27.0-31.0) pg MCHC (33.0-37.0) g/dL RDW (11.5-14.5) % Plt Count (130-400) K/uL MPV (7.2-11.7) fL Neut % (Auto) (50.0-75.0) % Lymph % (Auto) (20.0-40.0) % [place] % (Auto) (0.0-10.0) % Eos % (Auto) (0.0-4.0) % Baso % (Auto) (0.0-2.0) % Neut # (1.8-7.0) K/uL Lymph # (1.0-4.3) K/uL [place] # (0.0-0.8) K/uL Eos # (0.0-0.7) K/uL Baso # (0.0-0.2) K/uL PT 12.4 H (9.7-12.2) SECONDS INR 1.1 APTT 84 H D (21-34) SECONDS Sodium (132-148) mmol/L Potassium (3.6-5.2) mmol/L Chloride (98-107) mmol/L Carbon Dioxide (22-30) mmol/L Anion Gap (10-20) BUN (9-20) mg/dL Creatinine (0.8-1.5) mg/dL Est GFR ( Amer) Est GFR (Non-Af Amer) POC Glucose (mg/dL) 138 H 114 H (65-110) mg/dL Random Glucose (75-110) mg/dL Calcium (8.6-10.4) mg/dl Phosphorus (2.5-4.5) mg/dL Magnesium (1.6-2.3) mg/dL Total Bilirubin (0.2-1.3) mg/dL AST (17-59) U/L ALT (21-72) U/L Alkaline Phosphatase (38-126) U/L Total Protein (6.3-8.3) g/dL Albumin (3.5-5.0) g/dL Globulin (2.2-3.9) gm/dL Albumin/Globulin Ratio (1.0-2.1) 12/10/17 12/10/17 Range/Units 05:36 05:36 WBC 7.8 (4.8-10.8) K/uL RBC 4.78 (4.40-5.90) Mil/uL Hgb 14.7 (12.0-18.0) g/dL Hct 41.7 (35.0-51.0) % MCV 87.1 (80.0-94.0) fL MCH 30.7 (27.0-31.0) pg MCHC 35.2 (33.0-37.0) g/dL RDW 13.7 (11.5-14.5) % Plt Count 186 (130-400) K/uL MPV 9.7 (7.2-11.7) fL Neut % (Auto) 69.0 (50.0-75.0) % Lymph % (Auto) 20.5 (20.0-40.0) % [place] % (Auto) 8.1 (0.0-10.0) % Eos % (Auto) 1.7 (0.0-4.0) % Baso % (Auto) 0.7 (0.0-2.0) % Neut # 5.4 (1.8-7.0) K/uL Lymph # 1.6 (1.0-4.3) K/uL [place] # 0.6 (0.0-0.8) K/uL Eos # 0.1 (0.0-0.7) K/uL Baso # 0.1 (0.0-0.2) K/uL PT (9.7-12.2) SECONDS INR APTT (21-34) SECONDS Sodium 139 (132-148) mmol/L Potassium 3.5 L (3.6-5.2) mmol/L Chloride 103 (98-107) mmol/L Carbon Dioxide 24 (22-30) mmol/L Anion Gap 16 (10-20) BUN 21 H (9-20) mg/dL Creatinine 1.2 (0.8-1.5) mg/dL Est GFR ( Amer) > 60 Est GFR (Non-Af Amer) > 60 POC Glucose (mg/dL) (65-110) mg/dL Random Glucose 117 H (75-110) mg/dL Calcium 9.0 (8.6-10.4) mg/dl Phosphorus 3.8 (2.5-4.5) mg/dL Magnesium 2.0 (1.6-2.3) mg/dL Total Bilirubin 1.3 (0.2-1.3) mg/dL AST 38 (17-59) U/L ALT 42 (21-72) U/L Alkaline Phosphatase 89 (38-126) U/L Total Protein 7.9 (6.3-8.3) g/dL Albumin 4.1 (3.5-5.0) g/dL Globulin 3.8 (2.2-3.9) gm/dL Albumin/Globulin Ratio 1.1 (1.0-2.1) Laboratory Results - last 24 hr 12/10/17 12/10/17 12/10/17 05:36 05:36 05:36 WBC 7.8 RBC 4.78 Hgb 14.7 Hct 41.7 MCV 87.1 MCH 30.7 MCHC 35.2 RDW 13.7 Plt Count 186 MPV 9.7 Neut % (Auto) 69.0 Lymph % (Auto) 20.5 [place] % (Auto) 8.1 Eos % (Auto) 1.7 Baso % (Auto) 0.7 Neut # 5.4 Lymph # 1.6 [place] # 0.6 Eos # 0.1 Baso # 0.1 PT 12.4 H INR 1.1 APTT 84 H D Sodium 139 Potassium 3.5 L Chloride 103 Carbon Dioxide 24 Anion Gap 16 BUN 21 H Creatinine 1.2 Est GFR ( Amer) > 60 Est GFR (Non-Af Amer) > 60 POC Glucose (mg/dL) Random Glucose 117 H Calcium 9.0 Phosphorus 3.8 Magnesium 2.0 Total Bilirubin 1.3 AST 38 ALT 42 Alkaline Phosphatase 89 Total Protein 7.9 Albumin 4.1 Globulin 3.8 Albumin/Globulin Ratio 1.1 12/10/17 12/10/17 07:30 11:43 WBC RBC Hgb Hct MCV MCH MCHC RDW Plt Count MPV Neut % (Auto) Lymph % (Auto) [place] % (Auto) Eos % (Auto) Baso % (Auto) Neut # Lymph # [place] # Eos # Baso # PT INR APTT Sodium Potassium Chloride Carbon Dioxide Anion Gap BUN Creatinine Est GFR ( Amer) Est GFR (Non-Af Amer) POC Glucose (mg/dL) 114 H 138 H Random Glucose Calcium Phosphorus Magnesium Total Bilirubin AST ALT Alkaline Phosphatase Total Protein Albumin Globulin Albumin/Globulin Ratio Critical Care Progress Note - Nutrition Nutrition: Nutrition Category Date Time Status Dysphagia/Modified Consistency Diet [DIET] Diets 01/23/18 Dinner Active Attending/Attestation - Attestation I have personally seen and examined this patient.: Yes I have fully participated in the care of the patient.: Yes I have reviewed all pertinent clinical information: Yes Notes (Text): Agree with the resident notes, discussion was made to during the rounds. Labs reviewed Continue the current treatment
--- NOTE | 2017-12-08 10:19 | RAD ---
Chest x-ray single frontal view History: Wheezing. Comparison: 12/06/2017 Findings: Persistent diffuse increased interstitial lung markings which may represent underlying edema and or infiltrate. Clinical correlation. Biapical pleural thickening. Right midlung atelectasis. Tortuous ectatic aorta. Calcification at the aortic knob. Cardiomegaly. Degenerative changes in the spine and shoulders. Impression: No significant interval change.
--- NOTE | 2017-12-08 13:32 | CP.PCM.PN ---
Subjective - Date & Time of Evaluation Date of Evaluation: 12/08/17 Time of Evaluation: 14:00 - Subjective Subjective: Progress note dictated # [id number] Objective - Vital Signs/Intake and Output Vital Signs (last 24 hours): Temp Pulse Resp BP Pulse Ox 98.4 F 87 18 131/70 95 12/08/17 12:00 12/08/17 13:00 12/08/17 12:00 12/08/17 12:55 12/08/17 13:00 Intake and Output: 12/08/17 12/08/17 06:59 18:59 Intake Total 1387.6 551.1 Output Total 500 1350 Balance 887.6 -798.9 - Medications Medications: Current Medications Aspirin (Aspirin Supp) 300 mg [place] DAILY [facility] Last Admin: 12/08/17 10:00 Dose: 300 mg Clopidogrel Bisulfate (Plavix) 75 mg PO DAILY [facility] Last Admin: 12/08/17 10:37 Dose: 75 mg Famotidine (Pepcid) 20 mg IVP BID [facility] Last Admin: 12/08/17 09:52 Dose: 20 mg Furosemide (Lasix) 20 mg IVP BID [facility] Last Admin: 12/08/17 09:53 Dose: 20 mg Heparin Sodium/Sodium Chloride (Heparin 27863 Units/250ml 1/2 Normal Saline) 25 ,000 units in 250 mls @ 7.337 mls/hr IV .Q24H PRN; Protocol; 12 UNITS/KG/HR PRN Reason: ADJUST RATE PER PROTOCOL Last Admin: 12/07/17 14:26 Dose: 12 units/kg/hr, 7.337 mls/hr Metoprolol Tartrate (Lopressor) 12.5 mg PO BID [facility] Last Admin: 12/08/17 10:37 Dose: Not Given Rosuvastatin Calcium (Crestor) 40 mg PO HS [facility] Last Admin: 12/07/17 21:44 Dose: 40 mg - Labs Labs: 12/08/17 03:05 12/08/17 03:05 PT 11.4 SECONDS (9.7-12.2) 12/07/17 06:38 INR 1.0 12/07/17 06:38 APTT 52 SECONDS (21-34) H D 12/08/17 03:08
--- NOTE | 2017-12-08 14:14 | CP.PCM.PN ---
Subjective - Date & Time of Evaluation Date of Evaluation: 12/08/17 Time of Evaluation: 14:12 - Subjective Subjective: Mr. Singh was seen and examined at the [facility] in ICU. He is alert, oriented with agrbled speech and right facial palsy. He is able to answer questions appropriately and follow simple commands. He remains with right side paralysis. He refused MRI of the brain due to claustrophobia even with sedation. There was no untoward events overnight. Objective - Vital Signs/Intake and Output Vital Signs (last 24 hours): Temp Pulse Resp BP Pulse Ox 98.4 F 97 H 17 107/58 L 91 L 12/08/17 12:00 12/08/17 14:00 12/08/17 14:00 12/08/17 13:54 12/08/17 14:00 Intake and Output: 12/08/17 12/08/17 06:59 18:59 Intake Total 1387.6 558.4 Output Total 500 1550 Balance 887.6 -991.6 - Medications Medications: Current Medications Aspirin (Aspirin Supp) 300 mg [place] DAILY [facility] Last Admin: 12/08/17 10:00 Dose: 300 mg Clopidogrel Bisulfate (Plavix) 75 mg PO DAILY [facility] Last Admin: 12/08/17 10:37 Dose: 75 mg Famotidine (Pepcid) 20 mg IVP BID [facility] Last Admin: 12/08/17 09:52 Dose: 20 mg Furosemide (Lasix) 20 mg IVP BID [facility] Last Admin: 12/08/17 09:53 Dose: 20 mg Heparin Sodium/Sodium Chloride (Heparin 00173 Units/250ml 1/2 Normal Saline) 25 ,000 units in 250 mls @ 7.337 mls/hr IV .Q24H PRN; Protocol; 12 UNITS/KG/HR PRN Reason: ADJUST RATE PER PROTOCOL Last Admin: 12/07/17 14:26 Dose: 12 units/kg/hr, 7.337 mls/hr Metoprolol Tartrate (Lopressor) 12.5 mg PO BID [facility] Last Admin: 12/08/17 10:37 Dose: Not Given Rosuvastatin Calcium (Crestor) 40 mg PO HS [facility] Last Admin: 12/07/17 21:44 Dose: 40 mg - Labs Labs: 12/08/17 03:05 12/08/17 03:05 PT 11.4 SECONDS (9.7-12.2) 12/07/17 06:38 INR 1.0 12/07/17 06:38 APTT 52 SECONDS (21-34) H D 12/08/17 03:08 - Constitutional Appears: No Acute Distress - Head Exam Head Exam: NORMAL INSPECTION - Neurological Exam Neurological Exam: Alert, Awake Neuro motor strength exam: Left Upper Extremity: 5, Right Upper Extremity: 0, Left Lower Extremity: 5, Right Lower Extremity: 0 Additional comments: Right facial palsy and right hemiplegia. Sensation is asymmetrical. Assessment and Plan (1) Acute ischemic stroke Assessment & Plan: Case discussed with Dr. Zepeda, continue all current medical regimen. Recommend PT/ OT eval and treat pending clearance form nutritionist public health due to his NSTEMI. Recommend acute rehab for discharge planning. Status: Acute
--- NOTE | 2017-12-08 22:05 | CP.PCM.PN ---
Subjective - Date & Time of Evaluation Date of Evaluation: 12/08/17 Time of Evaluation: 19:15 - Subjective Subjective: Patient seen and evaluated Denies chest pain and dyspnea CCU Objective - Physical Exam Head: Positive for: Atraumatic, Normocephalic Pupils: Positive for: PERRL Extroacular Muscles: Positive for: EOMI Conjunctiva: Positive for: Normal Mouth: Positive for: Moist Mucous Membranes Respiratory/Chest: Positive for: Clear to Auscultation, Good Air Exchange Cardiovascular: Positive for: Regular Rate and Rhythm Abdomen: Positive for: Normal Bowel Sounds. Negative for: Tenderness, Distention Neurological: Positive for: GCS=15, Other (R. hemiplegia) Psychiatric: Positive for: Alert Objective - Vital Signs/Intake and Output Vital Signs (last 24 hours): Temp Pulse Resp BP Pulse Ox 98.3 F 87 15 117/76 96 12/08/17 20:00 12/08/17 20:00 12/08/17 20:00 12/08/17 19:54 12/08/17 20:00 Intake and Output: 12/08/17 12/09/17 18:59 06:59 Intake Total 787.6 7.3 Output Total 2050 200 Balance -1262.4 -192.7 - Medications Medications: Current Medications Aspirin (Aspirin Supp) 300 mg [place] DAILY [facility] Last Admin: 12/08/17 10:00 Dose: 300 mg Clopidogrel Bisulfate (Plavix) 75 mg PO DAILY [facility] Last Admin: 12/08/17 10:37 Dose: 75 mg Famotidine (Pepcid) 20 mg IVP BID [facility] Last Admin: 12/08/17 17:06 Dose: 20 mg Furosemide (Lasix) 20 mg IVP BID [facility] Last Admin: 12/08/17 17:06 Dose: 20 mg Heparin Sodium/Sodium Chloride (Heparin 09425 Units/250ml 1/2 Normal Saline) 25 ,000 units in 250 mls @ 7.337 mls/hr IV .Q24H PRN; Protocol; 12 UNITS/KG/HR PRN Reason: ADJUST RATE PER PROTOCOL Last Admin: 12/07/17 14:26 Dose: 12 units/kg/hr, 7.337 mls/hr Metoprolol Tartrate (Lopressor) 12.5 mg PO BID [facility] Last Admin: 12/08/17 17:06 Dose: 12.5 mg Rosuvastatin Calcium (Crestor) 40 mg PO HS [facility] Last Admin: 12/08/17 21:59 Dose: 40 mg - Labs Labs: 12/08/17 03:05 12/08/17 03:05 PT 11.4 SECONDS (9.7-12.2) 12/07/17 06:38 INR 1.0 12/07/17 06:38 APTT 52 SECONDS (21-34) H D 12/08/17 03:08 Assessment and Plan - Assessment and Plan (Free Text) Assessment: Assessment and Plan (1) Acute ischemic stroke Assessment & Plan: Case discussed with Dr. Zepeda, continue all current medical regimen. Recommend PT/ OT eval and treat pending clearance form resident inspector due to his NSTEMI. Recommend acute rehab for discharge planning. Status: Acute (1) Acute Coronary Syndrome/?LV clot Assessment & Plan: Cardiac Cath and AMINA Continue ASA, Plavix and IV Heparin
--- NOTE | 2017-12-08 22:32 | CARD ---
APPROVED REPORT EXAM: Two-dimensional and M-mode echocardiogram with Doppler, color Doppler with saline contrast. Other Information Quality : GoodRhythm : INDICATION CVA/TIA Acute UT 2D DIMENSIONS IVSd0.7 (0.7-1.1cm)LVDd4.6 (3.9-5.9cm) PWd0.9 (0.7-1.1cm)LVDs3.5 (2.5-4.0cm) FS (%) 24.7 %LVEF (%)49.1 (>50%) Mitral Valve MV E Srkldnek012.1cm/sMV A Feijqcps48.0cm/sE/A ratio1.2 TDI E/Lateral E'0.0E/Medial E'0.0 Tricuspid Valve TR Peak [id number]/sTR Peak Gr.[id number] LEFT VENTRICLE The left ventricle is normal size. There is normal left ventricular wall thickness. Left ventricle systolic function is borderline. The Ejection Fraction is 45-50%. There is normal LV segmental wall motion. The left ventricular diastolic function is normal. RIGHT VENTRICLE The right ventricle is normal size. There is normal right ventricular wall thickness. The right ventricular systolic function is normal. ATRIA The left atrium size is normal. The right atrium size is normal. The interatrial septum is intact with no evidence for an atrial septal defect. AORTIC VALVE The aortic valve is normal in structure. There is trace aortic regurgitation. There is no aortic valvular stenosis. MITRAL VALVE The mitral valve is normal in structure. There is no evidence of mitral valve prolapse. There is no mitral valve stenosis. Mitral regurgitation is moderate. TRICUSPID VALVE The tricuspid valve is normal in structure. There is mild tricuspid regurgitation. Right ventricular systolic pressure is estimated at 30-40 mmHg. There is mild pulmonary hypertension. PULMONIC VALVE The pulmonic valve is not well visualized. There is no pulmonic valvular regurgitation. GREAT VESSELS The aortic root is normal in size. PERICARDIAL EFFUSION There is no significant pericardial effusion. <Conclusion> Left ventricle systolic function is borderline. The Ejection Fraction is 45-50%. There is trace aortic regurgitation. Mitral regurgitation is moderate. There is mild tricuspid regurgitation. There is mild pulmonary hypertension. There is no pulmonic valvular regurgitation.
--- NOTE | 2017-12-08 23:34 | CARD ---
APPROVED REPORT EKG Measurement Heart [id number] DC 114P62 [id number] <Conclusion> Sinus tachycardia Left axis deviation Right bundle branch block Cannot rule out Inferior infarct, age undetermined Cannot rule out Anterior infarct, age undetermined Marked ST abnormality, possible lateral subendocardial injury Abnormal ECG
--- NOTE | 2017-12-08 23:34 | CARD ---
APPROVED REPORT EKG Measurement Heart [id number] PA 120P61 [id number] <Conclusion> Sinus tachycardia Left axis deviation Incomplete right bundle branch block Septal infarct, age undetermined Cannot rule out Inferior infarct, age undetermined Marked ST abnormality, possible anterolateral subendocardial injury Abnormal ECG
[2017-12-09] MEDS: Heparin25000 units/250ml 1/2NS 25,000 UNITS/250 ML BAG IV PRN (01:05)
--- NOTE | 2017-12-09 02:18 | PN ---
DATE: 12/08/2017 SUBJECTIVE: Patient was seen and examined at bedside. The patient's neurological deficit remains the same. Speech is still slurred and complaining of double vision. Denies any other new complaints. PHYSICAL EXAMINATION: GENERAL: Middle-aged male lying in bed, in no acute distress. VITAL SIGNS: Blood pressure 117/76, pulse 85, respirations 19, temperature 98.3 degrees Fahrenheit, O2 saturations 100% on room air. Intake is 2616 mL, output is 900 mL. HEENT: Pupils equal, reacting to light and accommodation. Extraocular muscles are intact. NECK: Supple. No JVD. LUNGS: Bilateral vesicular breath sounds. No wheezing. No rhonchi. CARDIOVASCULAR SYSTEM: S1 and S2 present, regular. ABDOMEN: Soft, nontender. Bowel sounds present. No guarding. No rigidity. No rebound tenderness noted. CENTRAL NERVOUS SYSTEM: Alert, awake, oriented x3, dysarthria, right-sided dense hemiplegia with power 0/5 and absent reflexes. MEDICATIONS: Include aspirin 300 mg per rectally, Plavix 75 mg p.o. daily, Pepcid 20 mg IV b.i.d., Lasix 20 mg IV push b.i.d., heparin 12 units per kg per hour, Lopressor 12.5 mg p.o. b.i.d., Crestor 40 mg p.o. at bedtime. LABORATORY DATA: :Labs done from this morning, WBC 9.6, hemoglobin 14, hematocrit 40.7, platelets 158. PTT 52. Sodium 136, potassium 3.4, chloride 108, bicarbonate 20, BUN 10, creatinine 0.9, glucose 118, calcium 8.0, phosphorus 2.4, magnesium 1.7, total bilirubin 1.7, AST 60, ALT 32, alkaline phosphatase 73, total protein 6.6, albumin 3.4. Chest x-ray from this morning shows no significant interval change, persistent diffuse interstitial increased lung markings. Repeat CT head from yesterday, normal CT of head, no intracranial hemorrhage. ASSESSMENT AND PLAN: Middle-aged male with no significant past medical history, admitted for acute ischemic stroke, acute coronary syndrome, hypertension, hyperlipidemia with dysarthria and right-sided dense hemiplegia. Patient is on heparin drip. Continue with aspirin, Plavix, Crestor, Lopressor. Neurology and Cardiology input appreciated. We will continue with physical therapy and occupational therapy. We will get patient out of bed to chair. Overall long-term prognosis is guarded. We will add further recommendations as his clinical course progresses. Dara Bedoya MD
[2017-12-09 06:41] LABS: BASO % 0.4 % (0.0-2.0); EOS # 0.1 K/uL (0.0-0.7); EOS % 1.6 % (0.0-4.0); HEMOGLOBIN 14.7 g/dL (12.0-18.0); LYMPH # 1.6 K/uL (1.0-4.3); MEAN CELL VOLUME 87.5 fL (80.0-94.0); MEAN CORPUSCULAR HEMOGLOBIN 30.1 pg (27.0-31.0); MEAN CORPUSCULAR HGB CONC 34.4 g/dL (33.0-37.0); MONO # 0.7 K/uL (0.0-0.8); MONO % 7.6 % (0.0-10.0); NEUT # 6.1 K/uL (1.8-7.0); NEUT % 71.4 % (50.0-75.0); NRBC % 0.1 % (0.0-2.0); RBC 4.89 Mil/uL (4.40-5.90); RED CELL DISTRIBUTION WIDTH 13.8 % (11.5-14.5); WHITE BLOOD COUNT 8.5 K/uL (4.8-10.8)
[2017-12-09 06:59] LABS: ALB/GLOB RATIO 1.1 (1.0-2.1); ALT/SGPT 35 U/L (21-72); AST/SGOT 42 U/L (17-59); BLOOD UREA NITROGEN 15 mg/dL (9-20); CALCIUM 8.7 mg/dl (8.6-10.4); GFR AFRICAN-AMERICAN > 60; GFR NON-AFRICAN AMERICAN > 60
--- NOTE | 2017-12-09 10:38 | CP.PCM.PN ---
Subjective - Date & Time of Evaluation Date of Evaluation: 12/09/17 Time of Evaluation: 11:00 - Subjective Subjective: Progress note dictated #[id number] Objective - Vital Signs/Intake and Output Vital Signs (last 24 hours): Temp Pulse Resp BP Pulse Ox 98.2 F 85 18 116/80 96 12/09/17 08:00 12/09/17 10:00 12/09/17 10:00 12/09/17 09:54 12/09/17 10:00 Intake and Output: 12/09/17 12/09/17 06:59 18:59 Intake Total 437.6 21.9 Output Total 800 0 Balance -362.4 21.9 - Medications Medications: Current Medications Aspirin (Ecotrin) 81 mg PO DAILY [facility] Last Admin: 12/09/17 09:57 Dose: 81 mg Clopidogrel Bisulfate (Plavix) 75 mg PO DAILY [facility] Last Admin: 12/09/17 09:52 Dose: 75 mg Famotidine (Pepcid) 20 mg IVP BID [facility] Last Admin: 12/09/17 09:55 Dose: 20 mg Furosemide (Lasix) 20 mg IVP BID [facility] Last Admin: 12/09/17 09:53 Dose: 20 mg Heparin Sodium/Sodium Chloride (Heparin 31542 Units/250ml 1/2 Normal Saline) 25 ,000 units in 250 mls @ 7.337 mls/hr IV .Q24H PRN; Protocol; 12 UNITS/KG/HR PRN Reason: ADJUST RATE PER PROTOCOL Last Admin: 12/09/17 01:05 Dose: 12 units/kg/hr, 7.337 mls/hr Metoprolol Tartrate (Lopressor) 12.5 mg PO BID [facility] Last Admin: 12/09/17 09:52 Dose: 12.5 mg Rosuvastatin Calcium (Crestor) 40 mg PO HS [facility] Last Admin: 12/08/17 21:59 Dose: 40 mg - Labs Labs: 12/09/17 06:27 12/09/17 06:27 PT 11.4 SECONDS (9.7-12.2) 12/07/17 06:38 INR 1.0 12/07/17 06:38 APTT 39 SECONDS (21-34) H D 12/09/17 06:27
[2017-12-09] MEDS ORDERED: Perflutren Lipid Microsphere 1.5 ML SUS IV ONE (10:49)
--- NOTE | 2017-12-09 11:00 | CP.CCUPN ---
<Jake Juarez - Last Filed: 12/09/17 12:07> CCU Subjective - Physician Review Subjective (Free Text): 12/08/17 11:49 developed some wheezing repeat cxr, annabella 12/09/17 12:05 Patient seen and examined at bedside slurred speech seems to be improving Right hemiplegia still present Patient has no complaints was unable to tolerate MRI yesterday due to claustrophobia going for cardiac cath today CCU Objective - Vital Signs / Intake & Output Vital Signs (Last 4 hours): Vital Signs Temp Pulse Resp BP Pulse Ox 12/09/17 10:00 85 18 96 12/09/17 09:54 91 H 17 116/80 100 12/09/17 09:53 116/80 12/09/17 09:00 87 14 95 12/09/17 08:54 78 19 114/81 95 12/09/17 08:00 98.2 F 75 18 105/78 95 12/09/17 07:54 79 20 105/79 97 Intake and Output (Last 8hrs): Intake & Output 12/08/17 12/09/17 12/09/17 22:59 06:59 14:59 Intake Total 358.4 308.4 21.9 Output Total 1000 300 0 Balance -641.6 8.4 21.9 Weight 134 lb Intake: IV 250 Intake, IV Amount 158.4 58.4 21.9 Left Forearm 100 Right Antecubital 58.4 58.4 21.9 Oral 200 0 Output: Urine 1000 300 0 Urine, Voided 1000 300 0 Other: # Bowel Movements 0 0 0 - Physical Exam Head: Positive for: Atraumatic, Normocephalic Pupils: Positive for: PERRL Extroacular Muscles: Positive for: EOMI Conjunctiva: Positive for: Normal Mouth: Positive for: Moist Mucous Membranes Respiratory/Chest: Positive for: Clear to Auscultation, Good Air Exchange Cardiovascular: Positive for: Regular Rate and Rhythm Abdomen: Positive for: Normal Bowel Sounds. Negative for: Tenderness, Distention Neurological: Positive for: GCS=15, Other (R. hemiplegia) Psychiatric: Positive for: Alert - Medications Active Medications: Active Medications Generic Name Dose Route Start Last Admin Trade Name Freq PRN Reason Stop Dose Admin Aspirin 81 mg 12/09/17 10:00 12/09/17 09:57 Ecotrin PO 81 mg DAILY EMMY Administration Clopidogrel Bisulfate 75 mg 12/07/17 10:00 12/09/17 09:52 Plavix PO 75 mg DAILY EMMY Administration Famotidine 20 mg 12/07/17 10:30 12/09/17 09:55 Pepcid IVP 20 mg BID EMMY Administration Furosemide 20 mg 12/08/17 10:00 12/09/17 09:53 Lasix IVP 20 mg BID EMMY Administration Heparin Sodium/Sodium Chloride 25,000 units in 250 mls @ 7.337 mls/hr 09:59 12/09/17 01:05 Heparin 97838 Units/250ml 1/2 Normal Saline IV 12 units/kg/hr .Q24H PRN 7.337 mls/hr ADJUST RATE PER PROTOCOL Administration Protocol 12 UNITS/KG/HR Metoprolol Tartrate 12.5 mg 12/08/17 10:00 12/09/17 09:52 Lopressor PO 12.5 mg BID EMMY Administration Rosuvastatin Calcium 40 mg 12/07/17 10:00 12/08/17 21:59 Crestor PO 40 mg HS EMMY Administration - Patient Studies Lab Studies: Lab Studies 12/09/17 12/09/17 12/09/17 Range/Units 07:34 06:27 06:27 WBC (4.8-10.8) K/uL RBC (4.40-5.90) Mil/uL Hgb (12.0-18.0) g/dL Hct (35.0-51.0) % MCV (80.0-94.0) fL MCH (27.0-31.0) pg MCHC (33.0-37.0) g/dL RDW (11.5-14.5) % Plt Count (130-400) K/uL MPV (7.2-11.7) fL Neut % (Auto) (50.0-75.0) % Lymph % (Auto) (20.0-40.0) % Rabun % (Auto) (0.0-10.0) % Eos % (Auto) (0.0-4.0) % Baso % (Auto) (0.0-2.0) % Neut # (1.8-7.0) K/uL Lymph # (1.0-4.3) K/uL Rabun # (0.0-0.8) K/uL Eos # (0.0-0.7) K/uL Baso # (0.0-0.2) K/uL APTT 39 H D (21-34) SECONDS Sodium 139 (132-148) mmol/L Potassium 3.8 (3.6-5.2) mmol/L Chloride 103 (98-107) mmol/L Carbon Dioxide 26 (22-30) mmol/L Anion Gap 14 (10-20) BUN 15 (9-20) mg/dL Creatinine 1.1 (0.8-1.5) mg/dL Est GFR ( Amer) > 60 Est GFR (Non-Af Amer) > 60 POC Glucose (mg/dL) 100 (65-110) mg/dL Random Glucose 111 H (75-110) mg/dL Calcium 8.7 (8.6-10.4) mg/dl Phosphorus 3.1 (2.5-4.5) mg/dL Magnesium 2.0 (1.6-2.3) mg/dL Total Bilirubin 1.3 (0.2-1.3) mg/dL AST 42 (17-59) U/L ALT 35 (21-72) U/L Alkaline Phosphatase 88 (38-126) U/L Total Protein 7.7 (6.3-8.3) g/dL Albumin 4.0 (3.5-5.0) g/dL Globulin 3.7 (2.2-3.9) gm/dL Albumin/Globulin Ratio 1.1 (1.0-2.1) 12/09/17 12/08/17 12/08/17 Range/Units 06:27 21:15 16:21 WBC 8.5 (4.8-10.8) K/uL RBC 4.89 (4.40-5.90) Mil/uL Hgb 14.7 (12.0-18.0) g/dL Hct 42.8 (35.0-51.0) % MCV 87.5 (80.0-94.0) fL MCH 30.1 (27.0-31.0) pg MCHC 34.4 (33.0-37.0) g/dL RDW 13.8 (11.5-14.5) % Plt Count 178 (130-400) K/uL MPV 10.0 (7.2-11.7) fL Neut % (Auto) 71.4 (50.0-75.0) % Lymph % (Auto) 19.0 L (20.0-40.0) % Rabun % (Auto) 7.6 (0.0-10.0) % Eos % (Auto) 1.6 (0.0-4.0) % Baso % (Auto) 0.4 (0.0-2.0) % Neut # 6.1 (1.8-7.0) K/uL Lymph # 1.6 (1.0-4.3) K/uL Rabun # 0.7 (0.0-0.8) K/uL Eos # 0.1 (0.0-0.7) K/uL Baso # 0.0 (0.0-0.2) K/uL APTT (21-34) SECONDS Sodium (132-148) mmol/L Potassium (3.6-5.2) mmol/L Chloride (98-107) mmol/L Carbon Dioxide (22-30) mmol/L Anion Gap (10-20) BUN (9-20) mg/dL Creatinine (0.8-1.5) mg/dL Est GFR ( Amer) Est GFR (Non-Af Amer) POC Glucose (mg/dL) 116 H 88 (65-110) mg/dL Random Glucose (75-110) mg/dL Calcium (8.6-10.4) mg/dl Phosphorus (2.5-4.5) mg/dL Magnesium (1.6-2.3) mg/dL Total Bilirubin (0.2-1.3) mg/dL AST (17-59) U/L ALT (21-72) U/L Alkaline Phosphatase (38-126) U/L Total Protein (6.3-8.3) g/dL Albumin (3.5-5.0) g/dL Globulin (2.2-3.9) gm/dL Albumin/Globulin Ratio (1.0-2.1) 12/08/17 12/06/17 Range/Units 11:11 11:07 WBC (4.8-10.8) K/uL RBC (4.40-5.90) Mil/uL Hgb (12.0-18.0) g/dL Hct (35.0-51.0) % MCV (80.0-94.0) fL MCH (27.0-31.0) pg MCHC (33.0-37.0) g/dL RDW (11.5-14.5) % Plt Count (130-400) K/uL MPV (7.2-11.7) fL Neut % (Auto) (50.0-75.0) % Lymph % (Auto) (20.0-40.0) % Rabun % (Auto) (0.0-10.0) % Eos % (Auto) (0.0-4.0) % Baso % (Auto) (0.0-2.0) % Neut # (1.8-7.0) K/uL Lymph # (1.0-4.3) K/uL Rabun # (0.0-0.8) K/uL Eos # (0.0-0.7) K/uL Baso # (0.0-0.2) K/uL APTT (21-34) SECONDS Sodium (132-148) mmol/L Potassium (3.6-5.2) mmol/L Chloride (98-107) mmol/L Carbon Dioxide (22-30) mmol/L Anion Gap (10-20) BUN (9-20) mg/dL Creatinine (0.8-1.5) mg/dL Est GFR ( Amer) Est GFR (Non-Af Amer) POC Glucose (mg/dL) 129 H 191 H (65-110) mg/dL Random Glucose (75-110) mg/dL Calcium (8.6-10.4) mg/dl Phosphorus (2.5-4.5) mg/dL Magnesium (1.6-2.3) mg/dL Total Bilirubin (0.2-1.3) mg/dL AST (17-59) U/L ALT (21-72) U/L Alkaline Phosphatase (38-126) U/L Total Protein (6.3-8.3) g/dL Albumin (3.5-5.0) g/dL Globulin (2.2-3.9) gm/dL Albumin/Globulin Ratio (1.0-2.1) Laboratory Results - last 24 hr 12/06/17 12/08/17 12/08/17 11:07 11:11 16:21 WBC RBC Hgb Hct MCV MCH MCHC RDW Plt Count MPV Neut % (Auto) Lymph % (Auto) Rabun % (Auto) Eos % (Auto) Baso % (Auto) Neut # Lymph # Rabun # Eos # Baso # APTT Sodium Potassium Chloride Carbon Dioxide Anion Gap BUN Creatinine Est GFR ( Amer) Est GFR (Non-Af Amer) POC Glucose (mg/dL) 191 H 129 H 88 Random Glucose Calcium Phosphorus Magnesium Total Bilirubin AST ALT Alkaline Phosphatase Total Protein Albumin Globulin Albumin/Globulin Ratio 12/08/17 12/09/17 12/09/17 21:15 06:27 06:27 WBC 8.5 RBC 4.89 Hgb 14.7 Hct 42.8 MCV 87.5 MCH 30.1 MCHC 34.4 RDW 13.8 Plt Count 178 MPV 10.0 Neut % (Auto) 71.4 Lymph % (Auto) 19.0 L Rabun % (Auto) 7.6 Eos % (Auto) 1.6 Baso % (Auto) 0.4 Neut # 6.1 Lymph # 1.6 Rabun # 0.7 Eos # 0.1 Baso # 0.0 APTT Sodium 139 Potassium 3.8 Chloride 103 Carbon Dioxide 26 Anion Gap 14 BUN 15 Creatinine 1.1 Est GFR ( Amer) > 60 Est GFR (Non-Af Amer) > 60 POC Glucose (mg/dL) 116 H Random Glucose 111 H Calcium 8.7 Phosphorus 3.1 Magnesium 2.0 Total Bilirubin 1.3 AST 42 ALT 35 Alkaline Phosphatase 88 Total Protein 7.7 Albumin 4.0 Globulin 3.7 Albumin/Globulin Ratio 1.1 12/09/17 12/09/17 06:27 07:34 WBC RBC Hgb Hct MCV MCH MCHC RDW Plt Count MPV Neut % (Auto) Lymph % (Auto) Rabun % (Auto) Eos % (Auto) Baso % (Auto) Neut # Lymph # Rabun # Eos # Baso # APTT 39 H D Sodium Potassium Chloride Carbon Dioxide Anion Gap BUN Creatinine Est GFR ( Amer) Est GFR (Non-Af Amer) POC Glucose (mg/dL) 100 Random Glucose Calcium Phosphorus Magnesium Total Bilirubin AST ALT Alkaline Phosphatase Total Protein Albumin Globulin Albumin/Globulin Ratio Fingerstick Blood Sugar Results: 100 Critical Care Progress Note - Nutrition Nutrition: Nutrition Category Date Time Status NPO Diet [DIET] Diets 12/09/17 Breakfast Active Assessment/Plan - Assessment and Plan (Free Text) Assessment: 62-year-old male with past medical history of hypertension. Presents with acute ischemic stroke/NSTEMI Neuro: Alert and oriented, right hemiparesis persistent. Neuro ([place]) Repeat head CT negative for bleed. ASA and Plavix. PTOT OOB to chair Pulm: wheezing on exam CXR shows no obvious infiltrate or edema Discontinue NS Lasix 20 IV BID CV: Hemodynamically stable. NSTEMI, starting on heparin drip. Cardiology - Dr. Abdifatah fisher 12.5 BID cardiac cath today Hem: no acute issues Renal: no acute issues, urine output wnl, will monitor Endo: no acute issues GI: Puree necter thick ID: no acute issues DVT proph - heparin drip GI proph - protonix Code status - full code <Jim Peña S - Last Filed: 12/09/17 18:15> CCU Objective - Vital Signs / Intake & Output Vital Signs (Last 4 hours): Vital Signs Pulse Resp BP Pulse Ox 12/09/17 15:00 77 18 95 12/09/17 14:54 74 19 118/72 95 Intake and Output (Last 8hrs): Intake & Output 12/09/17 12/09/17 12/09/17 06:59 14:59 22:59 Intake Total 308.4 58.4 14.6 Output Total 300 0 780 Balance 8.4 58.4 -765.4 Weight 134 lb Intake: IV 250 Intake, IV Amount 58.4 58.4 14.6 Right Antecubital 58.4 58.4 14.6 Oral 0 0 Output: Urine 300 0 780 Urine, Voided 300 0 780 Stool 0 0 Other: # Voids Urine, Voided 4 # Bowel Movements 0 0 - Medications Active Medications: Active Medications Generic Name Dose Route Start Last Admin Trade Name Freq PRN Reason Stop Dose Admin Aspirin 325 mg 12/09/17 18:11 Ecotrin PO DAILY EMMY Famotidine 20 mg 12/07/17 10:30 12/09/17 09:55 Pepcid IVP 20 mg BID EMMY Administration Furosemide 20 mg 12/08/17 10:00 12/09/17 09:53 Lasix IVP 20 mg BID EMMY Administration Heparin Sodium/Sodium Chloride 25,000 units in 250 mls @ 7.337 mls/hr 09:59 12/09/17 01:05 Heparin 47494 Units/250ml 1/2 Normal Saline IV 12 units/kg/hr .Q24H PRN 7.337 mls/hr ADJUST RATE PER PROTOCOL Administration Protocol 12 UNITS/KG/HR Metoprolol Tartrate 12.5 mg 12/08/17 10:00 12/09/17 09:52 Lopressor PO 12.5 mg BID EMMY Administration Rosuvastatin Calcium 40 mg 12/07/17 10:00 12/08/17 21:59 Crestor PO 40 mg HS EMMY Administration - Patient Studies Lab Studies: Lab Studies 12/09/17 12/09/17 12/09/17 Range/Units 17:44 11:43 07:34 WBC (4.8-10.8) K/uL RBC (4.40-5.90) Mil/uL Hgb (12.0-18.0) g/dL Hct (35.0-51.0) % MCV (80.0-94.0) fL MCH (27.0-31.0) pg MCHC (33.0-37.0) g/dL RDW (11.5-14.5) % Plt Count (130-400) K/uL MPV (7.2-11.7) fL Neut % (Auto) (50.0-75.0) % Lymph % (Auto) (20.0-40.0) % Rabun % (Auto) (0.0-10.0) % Eos % (Auto) (0.0-4.0) % Baso % (Auto) (0.0-2.0) % Neut # (1.8-7.0) K/uL Lymph # (1.0-4.3) K/uL Rabun # (0.0-0.8) K/uL Eos # (0.0-0.7) K/uL Baso # (0.0-0.2) K/uL PT 12.2 (9.7-12.2) SECONDS INR 1.1 APTT 29 D (21-34) SECONDS Sodium (132-148) mmol/L Potassium (3.6-5.2) mmol/L Chloride (98-107) mmol/L Carbon Dioxide (22-30) mmol/L Anion Gap (10-20) BUN (9-20) mg/dL Creatinine (0.8-1.5) mg/dL Est GFR ( Amer) Est GFR (Non-Af Amer) POC Glucose (mg/dL) 116 H 100 (65-110) mg/dL Random Glucose (75-110) mg/dL Calcium (8.6-10.4) mg/dl Phosphorus (2.5-4.5) mg/dL Magnesium (1.6-2.3) mg/dL Total Bilirubin (0.2-1.3) mg/dL AST (17-59) U/L ALT (21-72) U/L Alkaline Phosphatase (38-126) U/L Total Protein (6.3-8.3) g/dL Albumin (3.5-5.0) g/dL Globulin (2.2-3.9) gm/dL Albumin/Globulin Ratio (1.0-2.1) 12/09/17 12/09/17 12/09/17 Range/Units 06:27 06:27 06:27 WBC 8.5 (4.8-10.8) K/uL RBC 4.89 (4.40-5.90) Mil/uL Hgb 14.7 (12.0-18.0) g/dL Hct 42.8 (35.0-51.0) % MCV 87.5 (80.0-94.0) fL MCH 30.1 (27.0-31.0) pg MCHC 34.4 (33.0-37.0) g/dL RDW 13.8 (11.5-14.5) % Plt Count 178 (130-400) K/uL MPV 10.0 (7.2-11.7) fL Neut % (Auto) 71.4 (50.0-75.0) % Lymph % (Auto) 19.0 L (20.0-40.0) % Rabun % (Auto) 7.6 (0.0-10.0) % Eos % (Auto) 1.6 (0.0-4.0) % Baso % (Auto) 0.4 (0.0-2.0) % Neut # 6.1 (1.8-7.0) K/uL Lymph # 1.6 (1.0-4.3) K/uL Rabun # 0.7 (0.0-0.8) K/uL Eos # 0.1 (0.0-0.7) K/uL Baso # 0.0 (0.0-0.2) K/uL PT (9.7-12.2) SECONDS INR APTT 39 H D (21-34) SECONDS Sodium 139 (132-148) mmol/L Potassium 3.8 (3.6-5.2) mmol/L Chloride 103 (98-107) mmol/L Carbon Dioxide 26 (22-30) mmol/L Anion Gap 14 (10-20) BUN 15 (9-20) mg/dL Creatinine 1.1 (0.8-1.5) mg/dL Est GFR ( Amer) > 60 Est GFR (Non-Af Amer) > 60 POC Glucose (mg/dL) (65-110) mg/dL Random Glucose 111 H (75-110) mg/dL Calcium 8.7 (8.6-10.4) mg/dl Phosphorus 3.1 (2.5-4.5) mg/dL Magnesium 2.0 (1.6-2.3) mg/dL Total Bilirubin 1.3 (0.2-1.3) mg/dL AST 42 (17-59) U/L ALT 35 (21-72) U/L Alkaline Phosphatase 88 (38-126) U/L Total Protein 7.7 (6.3-8.3) g/dL Albumin 4.0 (3.5-5.0) g/dL Globulin 3.7 (2.2-3.9) gm/dL Albumin/Globulin Ratio 1.1 (1.0-2.1) 12/08/17 12/06/17 Range/Units 21:15 11:07 WBC (4.8-10.8) K/uL RBC (4.40-5.90) Mil/uL Hgb (12.0-18.0) g/dL Hct (35.0-51.0) % MCV (80.0-94.0) fL MCH (27.0-31.0) pg MCHC (33.0-37.0) g/dL RDW (11.5-14.5) % Plt Count (130-400) K/uL MPV (7.2-11.7) fL Neut % (Auto) (50.0-75.0) % Lymph % (Auto) (20.0-40.0) % Rabun % (Auto) (0.0-10.0) % Eos % (Auto) (0.0-4.0) % Baso % (Auto) (0.0-2.0) % Neut # (1.8-7.0) K/uL Lymph # (1.0-4.3) K/uL Rabun # (0.0-0.8) K/uL Eos # (0.0-0.7) K/uL Baso # (0.0-0.2) K/uL PT (9.7-12.2) SECONDS INR APTT (21-34) SECONDS Sodium (132-148) mmol/L Potassium (3.6-5.2) mmol/L Chloride (98-107) mmol/L Carbon Dioxide (22-30) mmol/L Anion Gap (10-20) BUN (9-20) mg/dL Creatinine (0.8-1.5) mg/dL Est GFR ( Amer) Est GFR (Non-Af Amer) POC Glucose (mg/dL) 116 H 191 H (65-110) mg/dL Random Glucose (75-110) mg/dL Calcium (8.6-10.4) mg/dl Phosphorus (2.5-4.5) mg/dL Magnesium (1.6-2.3) mg/dL Total Bilirubin (0.2-1.3) mg/dL AST (17-59) U/L ALT (21-72) U/L Alkaline Phosphatase (38-126) U/L Total Protein (6.3-8.3) g/dL Albumin (3.5-5.0) g/dL Globulin (2.2-3.9) gm/dL Albumin/Globulin Ratio (1.0-2.1) Laboratory Results - last 24 hr 12/06/17 12/08/17 12/09/17 11:07 21:15 06:27 WBC 8.5 RBC 4.89 Hgb 14.7 Hct 42.8 MCV 87.5 MCH 30.1 MCHC 34.4 RDW 13.8 Plt Count 178 MPV 10.0 Neut % (Auto) 71.4 Lymph % (Auto) 19.0 L Rabun % (Auto) 7.6 Eos % (Auto) 1.6 Baso % (Auto) 0.4 Neut # 6.1 Lymph # 1.6 Rabun # 0.7 Eos # 0.1 Baso # 0.0 PT INR APTT Sodium Potassium Chloride Carbon Dioxide Anion Gap BUN Creatinine Est GFR ( Amer) Est GFR (Non-Af Amer) POC Glucose (mg/dL) 191 H 116 H Random Glucose Calcium Phosphorus Magnesium Total Bilirubin AST ALT Alkaline Phosphatase Total Protein Albumin Globulin Albumin/Globulin Ratio 12/09/17 12/09/17 12/09/17 06:27 06:27 07:34 WBC RBC Hgb Hct MCV MCH MCHC RDW Plt Count MPV Neut % (Auto) Lymph % (Auto) Rabun % (Auto) Eos % (Auto) Baso % (Auto) Neut # Lymph # Rabun # Eos # Baso # PT INR APTT 39 H D Sodium 139 Potassium 3.8 Chloride 103 Carbon Dioxide 26 Anion Gap 14 BUN 15 Creatinine 1.1 Est GFR ( Amer) > 60 Est GFR (Non-Af Amer) > 60 POC Glucose (mg/dL) 100 Random Glucose 111 H Calcium 8.7 Phosphorus 3.1 Magnesium 2.0 Total Bilirubin 1.3 AST 42 ALT 35 Alkaline Phosphatase 88 Total Protein 7.7 Albumin 4.0 Globulin 3.7 Albumin/Globulin Ratio 1.1 12/09/17 12/09/17 11:43 17:44 WBC RBC Hgb Hct MCV MCH MCHC RDW Plt Count MPV Neut % (Auto) Lymph % (Auto) Rabun % (Auto) Eos % (Auto) Baso % (Auto) Neut # Lymph # Rabun # Eos # Baso # PT 12.2 INR 1.1 APTT 29 D Sodium Potassium Chloride Carbon Dioxide Anion Gap BUN Creatinine Est GFR ( Amer) Est GFR (Non-Af Amer) POC Glucose (mg/dL) 116 H Random Glucose Calcium Phosphorus Magnesium Total Bilirubin AST ALT Alkaline Phosphatase Total Protein Albumin Globulin Albumin/Globulin Ratio Critical Care Progress Note - Nutrition Nutrition: Nutrition Category Date Time Status Heart Healthy Diet [DIET] Diets 12/09/17 Dinner Active Attending/Attestation - Attestation I have personally seen and examined this patient.: Yes I have fully participated in the care of the patient.: Yes I have reviewed all pertinent clinical information: Yes Notes (Text): 12/09/17 18:14 patient seen and examined in the intensive care unit. Case discussed with house staff in the morning rounds. Patient s/p Cath 1. L Main: 95% stenosis 2. L Cx: Patent 3. LAD: Diffuse 90-95% disease 4. RCA: Ostial 95%, Mid 95% lesions 5. EF by ECHO: 40% continue heparin drip Continue aspirin Cardiothoracic evaluation
[2017-12-09] MEDS ORDERED: Lidocaine 2% Inj (20ml) ONE (16:14)
[2017-12-09] MEDS ORDERED: Nitroglycerin 50mg in D5W 0 MG/0 ML BOTTLE IV ONE (16:36)
[2017-12-09 17:59] LABS: INR 1.1
[2017-12-09 18:04] LABS: PROTHROMBIN TIME 12.2 SECONDS (9.7-12.2)
[2017-12-09] MEDS ORDERED: Aspirin 325 mg EC Tablets PO SCH (18:11)
--- NOTE | 2017-12-09 18:13 | CP.PCM.PN ---
Subjective - Date & Time of Evaluation Date of Evaluation: 12/09/17 Time of Evaluation: 18:08 - Subjective Subjective: Patient s/p Cath 1. L Main: 95% stenosis 2. L Cx: Patent 3. LAD: Diffuse 90-95% disease 4. RCA: Ostial 95%, Mid 95% lesions 5. EF by ECHO: 40% Significant PAD preclusive for IABP Denies chest pain or dyspnea Stable hemodynamics D/C Plavix Increase ASA 325mg po daily Continue Statins and B blockers Resume IV Heparin after 10.30pm tonight with nomogram Due to recent stroke, PAD and Critical CAD prognosis is critical as patient is at high risk for cardiac arrest and massive MN D/W patient Patient has no family and lives alone Objective - Vital Signs/Intake and Output Vital Signs (last 24 hours): Temp Pulse Resp BP Pulse Ox 98.7 F 77 18 118/72 95 12/09/17 12:00 12/09/17 15:00 12/09/17 15:00 12/09/17 14:54 12/09/17 15:00 Intake and Output: 12/09/17 12/09/17 06:59 18:59 Intake Total 437.6 73.0 Output Total 800 780 Balance -362.4 -707.0 - Medications Medications: Current Medications Aspirin (Ecotrin) 81 mg PO DAILY [facility] Last Admin: 12/09/17 09:57 Dose: 81 mg Clopidogrel Bisulfate (Plavix) 75 mg PO DAILY [facility] Last Admin: 12/09/17 09:52 Dose: 75 mg Famotidine (Pepcid) 20 mg IVP BID [facility] Last Admin: 12/09/17 09:55 Dose: 20 mg Furosemide (Lasix) 20 mg IVP BID [facility] Last Admin: 12/09/17 09:53 Dose: 20 mg Heparin Sodium/Sodium Chloride (Heparin 24370 Units/250ml 1/2 Normal Saline) 25 ,000 units in 250 mls @ 7.337 mls/hr IV .Q24H PRN; Protocol; 12 UNITS/KG/HR PRN Reason: ADJUST RATE PER PROTOCOL Last Admin: 12/09/17 01:05 Dose: 12 units/kg/hr, 7.337 mls/hr Metoprolol Tartrate (Lopressor) 12.5 mg PO BID [facility] Last Admin: 12/09/17 09:52 Dose: 12.5 mg Rosuvastatin Calcium (Crestor) 40 mg PO HS [facility]MM[facility] Last Admin: 12/08/17 21:59 Dose: 40 mg - Labs Labs: 12/09/17 06:27 12/09/17 06:27 PT 12.2 SECONDS (9.7-12.2) 12/09/17 17:44 INR 1.1 12/09/17 17:44 APTT 29 SECONDS (21-34) D 12/09/17 17:44
--- NOTE | 2017-12-09 19:11 | CP.PCM.CON ---
History of Present Illness - History of Present Illness History of Present Illness: General Surgery Consult Pt. is a 62y/o male who presented to the ED with hemiplegia of the right side. CT Head x2 negative, CTA Head x 1 negative. Upon admission, his lab work showed elevated troponins indicative of [place]. Pt. dorindaos report recent history of CP with exertion. Echo with contrast showed no clot, but cardiac cath revealed severe stenosis of left main, LAD, and RCA with EF of 40% and PAD preclusive for IABP. Patient states the right-sided facial weakness has improved since arrival and currently denies CP, SOB, and abdominal pain. Social: denies smoking, ETOH, and drug use PMH: asthma, HTN SH: denies All: denies Meds: see MAR Review of Systems - Review of Systems All systems: reviewed and no additional remarkable complaints except (CP, SOB, Dyspnea on Exertion) Past Patient History - Past Medical History & Family History Past Medical History?: Yes - Past Social History Smoking Status: Unknown If Ever Smoked - CARDIAC Hx Hypertension: Yes - PULMONARY Hx Respiratory Disorders: Yes Hx Asthma: Yes - NEUROLOGICAL Hx Neurological Disorder: Yes - HEENT Hx HEENT Problems: No Hx Blind: No Hx Cataracts: No Hx Deafness: No Hx Difficulty Chewing: No Hx Epistaxis: No - RENAL Hx Chronic Kidney Disease: No - ENDOCRINE/METABOLIC Hx Endocrine Disorders: No - HEMATOLOGICAL/ONCOLOGICAL Hx Blood Disorders: No - INTEGUMENTARY Hx Dermatological Problems: No - MUSCULOSKELETAL/RHEUMATOLOGICAL Hx Musculoskeletal Disorders: No - GASTROINTESTINAL Hx Gastrointestinal Disorders: No - GENITOURINARY/GYNECOLOGICAL Hx Genitourinary Disorders: No - PSYCHIATRIC Hx Substance Use: No - SURGICAL HISTORY Hx Surgeries: No - ANESTHESIA Hx Anesthesia: No Hx Anesthesia Reactions: No Hx Malignant Hyperthermia: No Has any member of the family had a problem w/ anesthesia?: No Meds Allergies/Adverse Reactions: Allergies Allergy/AdvReac Type Severity Reaction Status Date / Time No Known Allergies Allergy Verified 12/06/17 11:14 - Medications Medications: Current Medications Aspirin (Ecotrin) 325 mg PO DAILY [facility] Famotidine (Pepcid) 20 mg IVP BID [facility] Last Admin: 12/09/17 09:55 Dose: 20 mg Furosemide (Lasix) 20 mg IVP BID [facility] Last Admin: 12/09/17 09:53 Dose: 20 mg Heparin Sodium/Sodium Chloride (Heparin 84125 Units/250ml 1/2 Normal Saline) 25 ,000 units in 250 mls @ 7.337 mls/hr IV .Q24H PRN; Protocol; 12 UNITS/KG/HR PRN Reason: ADJUST RATE PER PROTOCOL Last Admin: 12/09/17 01:05 Dose: 12 units/kg/hr, 7.337 mls/hr Metoprolol Tartrate (Lopressor) 12.5 mg PO BID [facility] Last Admin: 12/09/17 09:52 Dose: 12.5 mg Rosuvastatin Calcium (Crestor) 40 mg PO HS [facility] Last Admin: 12/08/17 21:59 Dose: 40 mg Physical Exam - Constitutional Appears: Non-toxic, No Acute Distress - Head Exam Head Exam: ATRAUMATIC, NORMAL INSPECTION, NORMOCEPHALIC - Eye Exam Eye Exam: EOMI, Normal appearance - ENT Exam ENT Exam: Mucous Membranes Moist - Respiratory Exam Respiratory Exam: Wheezes, NORMAL BREATHING PATTERN - Cardiovascular Exam Cardiovascular Exam: REGULAR RHYTHM, +S1, +S2 - GI/Abdominal Exam GI & Abdominal Exam: Normal Bowel Sounds, Soft. absent: Tenderness - Extremities Exam Additional comments: Groin cardiac cath insertion clean - Neurological Exam Neurological exam: Alert, Oriented x3 Additional comments: Right sided facial droop, slurred speech Results - Vital Signs Recent Vital Signs: Last Vital Signs Temp 98.7 F 12/09/17 12:00 Pulse 77 12/09/17 15:00 Resp 18 12/09/17 15:00 BP 118/72 12/09/17 14:54 Pulse Ox 95 12/09/17 15:00 - Labs Result Diagrams: 12/09/17 06:27 12/09/17 06:27 Labs: Laboratory Results - last 24 hr 12/06/17 12/08/17 12/09/17 11:07 21:15 06:27 WBC 8.5 RBC 4.89 Hgb 14.7 Hct 42.8 MCV 87.5 MCH 30.1 MCHC 34.4 RDW 13.8 Plt Count 178 MPV 10.0 Neut % (Auto) 71.4 Lymph % (Auto) 19.0 L [place] % (Auto) 7.6 Eos % (Auto) 1.6 Baso % (Auto) 0.4 Neut # 6.1 Lymph # 1.6 [place] # 0.7 Eos # 0.1 Baso # 0.0 PT INR APTT Sodium Potassium Chloride Carbon Dioxide Anion Gap BUN Creatinine Est GFR ( Amer) Est GFR (Non-Af Amer) POC Glucose (mg/dL) 191 H 116 H Random Glucose Calcium Phosphorus Magnesium Total Bilirubin AST ALT Alkaline Phosphatase Total Protein Albumin Globulin Albumin/Globulin Ratio 12/09/17 12/09/17 12/09/17 06:27 06:27 07:34 WBC RBC Hgb Hct MCV MCH MCHC RDW Plt Count MPV Neut % (Auto) Lymph % (Auto) [place] % (Auto) Eos % (Auto) Baso % (Auto) Neut # Lymph # [place] # Eos # Baso # PT INR APTT 39 H D Sodium 139 Potassium 3.8 Chloride 103 Carbon Dioxide 26 Anion Gap 14 BUN 15 Creatinine 1.1 Est GFR ( Amer) > 60 Est GFR (Non-Af Amer) > 60 POC Glucose (mg/dL) 100 Random Glucose 111 H Calcium 8.7 Phosphorus 3.1 Magnesium 2.0 Total Bilirubin 1.3 AST 42 ALT 35 Alkaline Phosphatase 88 Total Protein 7.7 Albumin 4.0 Globulin 3.7 Albumin/Globulin Ratio 1.1 12/09/17 12/09/17 11:43 17:44 WBC RBC Hgb Hct MCV MCH MCHC RDW Plt Count MPV Neut % (Auto) Lymph % (Auto) [place] % (Auto) Eos % (Auto) Baso % (Auto) Neut # Lymph # [place] # Eos # Baso # PT 12.2 INR 1.1 APTT 29 D Sodium Potassium Chloride Carbon Dioxide Anion Gap BUN Creatinine Est GFR ( Amer) Est GFR (Non-Af Amer) POC Glucose (mg/dL) 116 H Random Glucose Calcium Phosphorus Magnesium Total Bilirubin AST ALT Alkaline Phosphatase Total Protein Albumin Globulin Albumin/Globulin Ratio Assessment & Plan - Assessment and Plan (Free Text) Assessment: 62M with PMH of asthma, HTN, and angina presented with [place] and stroke with triple vessel disease Plan: Transfer to [facility] [place] for definitive treatment D/W Dr. Arcadio Bustamante PGY II [phone] - Date & Time Date: 12/09/17 Time: 07:20
--- NOTE | 2017-12-09 22:37 | CARD ---
APPROVED REPORT EXAM: LIMITED Two-dimensional echocardiogram with Definity contrast. Other Information Quality : GoodRhythm : INDICATION CVA/TIA <Conclusion> No LV thrombus seen.
[2017-12-09] MEDS ORDERED: Heparin25000 units/250ml 1/2NS 25,000 UNITS/250 ML BAG IV PRN (23:30)
--- NOTE | 2017-12-10 02:33 | PN ---
DATE: 12/09/2017 SUBJECTIVE: Patient was seen and examined at bedside. Patient's neurologic status remains the same, that is, no improvement, still on heparin therapy IV. Denies any new complaints. REVIEW OF SYSTEMS: All other systems reviewed and were found to be negative. PHYSICAL EXAMINATION: GENERAL: Middle-aged male, lying in bed, in no acute distress. VITAL SIGNS: Blood pressure 108/67, pulse 70, respirations 20, temperature 98.4 degrees Fahrenheit, O2 sats 95%. HEENT: Pupils equal, reacting to light and accommodation. Extraocular muscles are intact. No icterus. No pallor. No oral thrush. No pharyngeal congestion. NECK: Supple. No JVD. LUNGS: Bilateral vesicular breath sounds. No wheezing. No rhonchi. CARDIOVASCULAR SYSTEM: S1 and S2 present, regular. ABDOMEN: Soft, nontender. Bowel sounds present. No guarding. No rigidity. No rebound tenderness noted. CENTRAL NERVOUS SYSTEM: Alert, awake, oriented x3. Right-sided dense hemiplegia, dysarthria, double vision. MEDICATIONS: Include aspirin 325 mg daily, Pepcid 20 mg IV b.i.d., Lasix 20 mg IV push b.i.d., heparin 16 units/kg/hour, Lopressor 12.5 mg p.o. b.i.d., Crestor 40 mg p.o. at bedtime. LABORATORY DATA: From this morning, WBC 8.5, hemoglobin 14.7, hematocrit 42.8, platelets 178. Sodium 139, potassium 3.8, chloride 103, bicarbonate 26, BUN 15, creatinine 1.1, glucose 100, calcium 8.7, phosphorus 3.1, magnesium 2.0, total bilirubin 1.3, AST 42, ALT 35, alkaline phosphatase 88, total protein 7.7, albumin 4.0. ASSESSMENT AND PLAN: Middle-aged male with acute ischemic stroke with right dense hemiplegia, dysarthria with acute coronary syndrome, status post cardiac cath consistent with left main 95% stenosis and left anterior descending diffuse 90%-95%, and right coronary artery with ostial 95% and mid 95% lesion. Ejection fraction is only 40%. Patient is restarted on heparin drip, on aspirin, beta-blockers and statins, for possible transfer to [facility]. Overall prognosis is guarded. Dara Bedoya MD [facility] # [id number]
[2017-12-10 05:38] LABS: BASO # 0.1 K/uL (0.0-0.2); BASO % 0.7 % (0.0-2.0); EOS # 0.1 K/uL (0.0-0.7); EOS % 1.7 % (0.0-4.0); HEMOGLOBIN 14.7 g/dL (12.0-18.0); LYMPH # 1.6 K/uL (1.0-4.3); LYMPH % 20.5 % (20.0-40.0); MEAN CELL VOLUME 87.1 fL (80.0-94.0); MEAN CORPUSCULAR HEMOGLOBIN 30.7 pg (27.0-31.0); MEAN CORPUSCULAR HGB CONC 35.2 g/dL (33.0-37.0); MEAN PLATELET VOLUME 9.7 fL (7.2-11.7); MONO # 0.6 K/uL (0.0-0.8); MONO % 8.1 % (0.0-10.0); NEUT # 5.4 K/uL (1.8-7.0); RBC 4.78 Mil/uL (4.40-5.90); RED CELL DISTRIBUTION WIDTH 13.7 % (11.5-14.5); WHITE BLOOD COUNT 7.8 K/uL (4.8-10.8)
[2017-12-10 05:46] LABS: INR 1.1; PROTHROMBIN TIME 12.4 SECONDS (9.7-12.2)
[2017-12-10 05:56] LABS: ALB/GLOB RATIO 1.1 (1.0-2.1); ALBUMIN 4.1 g/dL (3.5-5.0); ALT/SGPT 42 U/L (21-72); AST/SGOT 38 U/L (17-59); BLOOD UREA NITROGEN 21 mg/dL (9-20); GFR AFRICAN-AMERICAN > 60; GFR NON-AFRICAN AMERICAN > 60
--- NOTE | 2017-12-10 10:56 | CP.CCUPN ---
CCU Subjective - Physician Review Subjective (Free Text): 12/10/17 10:53 patient seen and examined at bedside patient stable for transfer to [facility] for open heart talked to ICU and they are aware and accepting patient Heparin drip to be cont CCU Objective - Vital Signs / Intake & Output Vital Signs (Last 4 hours): Vital Signs Temp Pulse Resp BP Pulse Ox 12/10/17 10:28 90 91 L 12/10/17 09:17 114/70 12/10/17 09:09 87 19 114/70 91 L 12/10/17 08:49 91 H 16 124/76 91 L 12/10/17 08:40 81 16 48/33 L 94 L 12/10/17 08:09 78 18 140/86 93 L 12/10/17 08:00 73 16 93 L 12/10/17 07:39 131/81 12/10/17 07:09 75 18 137/72 89 L 12/10/17 07:00 98.3 F 78 18 132/72 94 L Intake and Output (Last 8hrs): Intake & Output 12/09/17 12/10/17 12/10/17 22:59 06:59 14:59 Intake Total 224.6 67.9 349.1 Output Total 1280 400 Balance -1055.4 -332.1 349.1 Weight 134 lb Intake: Intake, IV Amount 14.6 67.9 129.1 Left Forearm 0 67.9 29.1 Right Antecubital 14.6 100 Oral 210 220 Output: Urine 1280 400 Urine, Voided 1280 400 Stool 0 Other: # Voids Urine, Voided 4 # Bowel Movements 0 0 0 - Physical Exam Head: Positive for: Atraumatic, Normocephalic Pupils: Positive for: PERRL Extroacular Muscles: Positive for: EOMI Conjunctiva: Positive for: Normal Mouth: Positive for: Moist Mucous Membranes Respiratory/Chest: Positive for: Clear to Auscultation, Good Air Exchange Cardiovascular: Positive for: Regular Rate and Rhythm Abdomen: Positive for: Normal Bowel Sounds. Negative for: Tenderness, Distention Neurological: Positive for: GCS=15, Other (R. hemiplegia) Psychiatric: Positive for: Alert - Medications Active Medications: Active Medications Generic Name Dose Route Start Last Admin Trade Name Freq PRN Reason Stop Dose Admin Aspirin 325 mg 12/09/17 18:11 12/10/17 09:20 Ecotrin PO 325 mg DAILY EMMY Administration Famotidine 20 mg 12/07/17 10:30 12/10/17 09:18 Pepcid IVP 20 mg BID EMMY Administration Furosemide 20 mg 12/08/17 10:00 12/10/17 09:17 Lasix IVP 20 mg BID EMMY Administration Heparin Sodium/Sodium Chloride 25,000 units in 250 mls @ 9.725 mls/hr 23:30 12/09/17 23:30 Heparin 51520 Units/250ml 1/2 Normal Saline IV 16 units/kg/hr .Q24H PRN 9.725 mls/hr ADJUST RATE PER PROTOCOL Administration Protocol 16 UNITS/KG/HR Metoprolol Tartrate 12.5 mg 12/08/17 10:00 12/10/17 09:18 Lopressor PO 12.5 mg BID EMMY Administration Rosuvastatin Calcium 40 mg 12/07/17 10:00 12/09/17 22:25 Crestor PO 40 mg HS EMMY Administration - Patient Studies Lab Studies: Lab Studies 12/10/17 12/10/17 12/10/17 Range/Units 07:30 05:36 05:36 WBC (4.8-10.8) K/uL RBC (4.40-5.90) Mil/uL Hgb (12.0-18.0) g/dL Hct (35.0-51.0) % MCV (80.0-94.0) fL MCH (27.0-31.0) pg MCHC (33.0-37.0) g/dL RDW (11.5-14.5) % Plt Count (130-400) K/uL MPV (7.2-11.7) fL Neut % (Auto) (50.0-75.0) % Lymph % (Auto) (20.0-40.0) % [place] % (Auto) (0.0-10.0) % Eos % (Auto) (0.0-4.0) % Baso % (Auto) (0.0-2.0) % Neut # (1.8-7.0) K/uL Lymph # (1.0-4.3) K/uL [place] # (0.0-0.8) K/uL Eos # (0.0-0.7) K/uL Baso # (0.0-0.2) K/uL PT 12.4 H (9.7-12.2) SECONDS INR 1.1 APTT 84 H D (21-34) SECONDS Sodium 139 (132-148) mmol/L Potassium 3.5 L (3.6-5.2) mmol/L Chloride 103 (98-107) mmol/L Carbon Dioxide 24 (22-30) mmol/L Anion Gap 16 (10-20) BUN 21 H (9-20) mg/dL Creatinine 1.2 (0.8-1.5) mg/dL Est GFR ( Amer) > 60 Est GFR (Non-Af Amer) > 60 POC Glucose (mg/dL) 114 H (65-110) mg/dL Random Glucose 117 H (75-110) mg/dL Calcium 9.0 (8.6-10.4) mg/dl Phosphorus 3.8 (2.5-4.5) mg/dL Magnesium 2.0 (1.6-2.3) mg/dL Total Bilirubin 1.3 (0.2-1.3) mg/dL AST 38 (17-59) U/L ALT 42 (21-72) U/L Alkaline Phosphatase 89 (38-126) U/L Total Protein 7.9 (6.3-8.3) g/dL Albumin 4.1 (3.5-5.0) g/dL Globulin 3.8 (2.2-3.9) gm/dL Albumin/Globulin Ratio 1.1 (1.0-2.1) 12/10/17 12/09/17 12/09/17 Range/Units 05:36 21:34 18:20 WBC 7.8 (4.8-10.8) K/uL RBC 4.78 (4.40-5.90) Mil/uL Hgb 14.7 (12.0-18.0) g/dL Hct 41.7 (35.0-51.0) % MCV 87.1 (80.0-94.0) fL MCH 30.7 (27.0-31.0) pg MCHC 35.2 (33.0-37.0) g/dL RDW 13.7 (11.5-14.5) % Plt Count 186 (130-400) K/uL MPV 9.7 (7.2-11.7) fL Neut % (Auto) 69.0 (50.0-75.0) % Lymph % (Auto) 20.5 (20.0-40.0) % [place] % (Auto) 8.1 (0.0-10.0) % Eos % (Auto) 1.7 (0.0-4.0) % Baso % (Auto) 0.7 (0.0-2.0) % Neut # 5.4 (1.8-7.0) K/uL Lymph # 1.6 (1.0-4.3) K/uL [place] # 0.6 (0.0-0.8) K/uL Eos # 0.1 (0.0-0.7) K/uL Baso # 0.1 (0.0-0.2) K/uL PT (9.7-12.2) SECONDS INR APTT (21-34) SECONDS Sodium (132-148) mmol/L Potassium (3.6-5.2) mmol/L Chloride (98-107) mmol/L Carbon Dioxide (22-30) mmol/L Anion Gap (10-20) BUN (9-20) mg/dL Creatinine (0.8-1.5) mg/dL Est GFR ( Amer) Est GFR (Non-Af Amer) POC Glucose (mg/dL) 113 H 90 (65-110) mg/dL Random Glucose (75-110) mg/dL Calcium (8.6-10.4) mg/dl Phosphorus (2.5-4.5) mg/dL Magnesium (1.6-2.3) mg/dL Total Bilirubin (0.2-1.3) mg/dL AST (17-59) U/L ALT (21-72) U/L Alkaline Phosphatase (38-126) U/L Total Protein (6.3-8.3) g/dL Albumin (3.5-5.0) g/dL Globulin (2.2-3.9) gm/dL Albumin/Globulin Ratio (1.0-2.1) 12/09/17 12/09/17 Range/Units 17:44 11:43 WBC (4.8-10.8) K/uL RBC (4.40-5.90) Mil/uL Hgb (12.0-18.0) g/dL Hct (35.0-51.0) % MCV (80.0-94.0) fL MCH (27.0-31.0) pg MCHC (33.0-37.0) g/dL RDW (11.5-14.5) % Plt Count (130-400) K/uL MPV (7.2-11.7) fL Neut % (Auto) (50.0-75.0) % Lymph % (Auto) (20.0-40.0) % [place] % (Auto) (0.0-10.0) % Eos % (Auto) (0.0-4.0) % Baso % (Auto) (0.0-2.0) % Neut # (1.8-7.0) K/uL Lymph # (1.0-4.3) K/uL [place] # (0.0-0.8) K/uL Eos # (0.0-0.7) K/uL Baso # (0.0-0.2) K/uL PT 12.2 (9.7-12.2) SECONDS INR 1.1 APTT 29 D (21-34) SECONDS Sodium (132-148) mmol/L Potassium (3.6-5.2) mmol/L Chloride (98-107) mmol/L Carbon Dioxide (22-30) mmol/L Anion Gap (10-20) BUN (9-20) mg/dL Creatinine (0.8-1.5) mg/dL Est GFR ( Amer) Est GFR (Non-Af Amer) POC Glucose (mg/dL) 116 H (65-110) mg/dL Random Glucose (75-110) mg/dL Calcium (8.6-10.4) mg/dl Phosphorus (2.5-4.5) mg/dL Magnesium (1.6-2.3) mg/dL Total Bilirubin (0.2-1.3) mg/dL AST (17-59) U/L ALT (21-72) U/L Alkaline Phosphatase (38-126) U/L Total Protein (6.3-8.3) g/dL Albumin (3.5-5.0) g/dL Globulin (2.2-3.9) gm/dL Albumin/Globulin Ratio (1.0-2.1) Laboratory Results - last 24 hr 12/09/17 12/09/17 12/09/17 11:43 17:44 18:20 WBC RBC Hgb Hct MCV MCH MCHC RDW Plt Count MPV Neut % (Auto) Lymph % (Auto) [place] % (Auto) Eos % (Auto) Baso % (Auto) Neut # Lymph # [place] # Eos # Baso # PT 12.2 INR 1.1 APTT 29 D Sodium Potassium Chloride Carbon Dioxide Anion Gap BUN Creatinine Est GFR ( Amer) Est GFR (Non-Af Amer) POC Glucose (mg/dL) 116 H 90 Random Glucose Calcium Phosphorus Magnesium Total Bilirubin AST ALT Alkaline Phosphatase Total Protein Albumin Globulin Albumin/Globulin Ratio 12/09/17 12/10/17 12/10/17 21:34 05:36 05:36 WBC 7.8 RBC 4.78 Hgb 14.7 Hct 41.7 MCV 87.1 MCH 30.7 MCHC 35.2 RDW 13.7 Plt Count 186 MPV 9.7 Neut % (Auto) 69.0 Lymph % (Auto) 20.5 [place] % (Auto) 8.1 Eos % (Auto) 1.7 Baso % (Auto) 0.7 Neut # 5.4 Lymph # 1.6 [place] # 0.6 Eos # 0.1 Baso # 0.1 PT INR APTT Sodium 139 Potassium 3.5 L Chloride 103 Carbon Dioxide 24 Anion Gap 16 BUN 21 H Creatinine 1.2 Est GFR ( Amer) > 60 Est GFR (Non-Af Amer) > 60 POC Glucose (mg/dL) 113 H Random Glucose 117 H Calcium 9.0 Phosphorus 3.8 Magnesium 2.0 Total Bilirubin 1.3 AST 38 ALT 42 Alkaline Phosphatase 89 Total Protein 7.9 Albumin 4.1 Globulin 3.8 Albumin/Globulin Ratio 1.1 12/10/17 12/10/17 05:36 07:30 WBC RBC Hgb Hct MCV MCH MCHC RDW Plt Count MPV Neut % (Auto) Lymph % (Auto) [place] % (Auto) Eos % (Auto) Baso % (Auto) Neut # Lymph # [place] # Eos # Baso # PT 12.4 H INR 1.1 APTT 84 H D Sodium Potassium Chloride Carbon Dioxide Anion Gap BUN Creatinine Est GFR ( Amer) Est GFR (Non-Af Amer) POC Glucose (mg/dL) 114 H Random Glucose Calcium Phosphorus Magnesium Total Bilirubin AST ALT Alkaline Phosphatase Total Protein Albumin Globulin Albumin/Globulin Ratio Fingerstick Blood Sugar Results: 114 Critical Care Progress Note - Nutrition Nutrition: Nutrition Category Date Time Status Dysphagia/Modified Consistency Diet [DIET] Diets 12/09/17 Dinner Active
--- NOTE | 2017-12-10 11:20 | CP.PCM.PN ---
Subjective - Date & Time of Evaluation Date of Evaluation: 12/10/17 Time of Evaluation: 11:30 - Subjective Subjective: Discharge summary dictated #[id number] Objective - Vital Signs/Intake and Output Vital Signs (last 24 hours): Temp Pulse Resp BP Pulse Ox 98.3 F 90 19 114/70 91 L 12/10/17 07:00 12/10/17 10:28 12/10/17 09:09 12/10/17 09:17 12/10/17 10:28 Intake and Output: 12/10/17 12/10/17 06:59 18:59 Intake Total 277.9 349.1 Output Total 900 Balance -622.1 349.1 - Medications Medications: Current Medications Aspirin (Ecotrin) 325 mg PO DAILY [facility] Last Admin: 12/10/17 09:20 Dose: 325 mg Famotidine (Pepcid) 20 mg IVP BID [facility] Last Admin: 12/10/17 09:18 Dose: 20 mg Furosemide (Lasix) 20 mg IVP BID [facility] Last Admin: 12/10/17 09:17 Dose: 20 mg Heparin Sodium/Sodium Chloride (Heparin 60039 Units/250ml 1/2 Normal Saline) 25 ,000 units in 250 mls @ 9.725 mls/hr IV .Q24H PRN; Protocol; 16 UNITS/KG/HR PRN Reason: ADJUST RATE PER PROTOCOL Last Admin: 12/09/17 23:30 Dose: 16 units/kg/hr, 9.725 mls/hr Metoprolol Tartrate (Lopressor) 12.5 mg PO BID [facility] Last Admin: 12/10/17 09:18 Dose: 12.5 mg Rosuvastatin Calcium (Crestor) 40 mg PO HS [facility] Last Admin: 12/09/17 22:25 Dose: 40 mg - Labs Labs: 12/10/17 05:36 12/10/17 05:36 PT 12.4 SECONDS (9.7-12.2) H 12/10/17 05:36 INR 1.1 12/10/17 05:36 APTT 84 SECONDS (21-34) H D 12/10/17 05:36
[2017-12-10 13:36] VITALS: BP 147/88; PULSE 81; RESP 18; TEMP 97.5; O2SAT 97
--- NOTE | 2017-12-10 22:55 | CP.PCM.PN ---
Subjective - Date & Time of Evaluation Date of Evaluation: 12/09/17 Time of Evaluation: 08:10 - Subjective Subjective: Patient seen and evaluted Severe Trople vessel and L Main CAD For CABG For transfer to [facility] today Objective - Vital Signs/Intake and Output Vital Signs (last 24 hours): Temp Pulse Resp BP Pulse Ox 97.5 F L 81 18 147/88 97 12/10/17 12:00 12/10/17 12:00 12/10/17 12:00 12/10/17 12:00 12/10/17 12:00 Intake and Output: 12/10/17 12/11/17 18:59 06:59 Intake Total 528.2 Output Total 420 Balance 108.2 - Labs Labs: 12/10/17 05:36 12/10/17 05:36 PT 12.4 SECONDS (9.7-12.2) H 12/10/17 05:36 INR 1.1 12/10/17 05:36 APTT 84 SECONDS (21-34) H D 12/10/17 05:36
--- NOTE | 2017-12-11 20:27 | DS ---
DISPOSITION: Transfer to [facility] for possible open heart surgery. DISCHARGE DIAGNOSES: Acute ischemic stroke with right-sided dense hemiplegia, dysarthria, double vision consistent with nerve palsy, acute coronary syndrome with multivessel disease. HISTORY OF PRESENT ILLNESS: Mr. Singh is a 62-year-old male with no significant past medical history, admitted with right-sided weakness, dysarthria, and double vision and the patient was admitted to ICU for further management, was found to be having elevated troponins on admission. Today, the patient has neurologically remained the same with dense hemiplegia. Speech is still dysarthric and slurred. Denies any headache or dizziness. Denies any chest pain, shortness of breath, or wheezing. Denies any nausea, vomiting, abdominal pain, diarrhea, or constipation. Denies any urinary complaints. PHYSICAL EXAMINATION: GENERAL: Middle-aged male, lying in bed, in no acute distress. VITAL SIGNS: Blood pressure 147/88, pulse 81, respirations 18, temperature 97.5 degree Fahrenheit, O2 sat 97% on 2 L nasal cannula. Intake was 350 mL, output was 1680 mL. HEENT: Pupils equal, reacting to light and accommodation. Extraocular muscles are intact. NECK: Supple. No JVD. LUNGS: Bilateral vesicular breath sounds. Basal crackles heard. CARDIOVASCULAR SYSTEM: S1 and S2 present, regular. ABDOMEN: Soft, nontender. Bowel sounds present. No guarding. No rigidity. No rebound tenderness noted. CENTRAL NERVOUS SYSTEM: Alert, awake, oriented x3, right-sided dense hemiplegia, dysarthria. Power is 0/5 and reflex is 0 on the right upper and lower extremities. EXTREMITIES: No edema. LABORATORY DATA: From this morning, WBC 7.8, hemoglobin 14.7, hematocrit 41.7, and platelets 186. PT 12.4, INR 1.1, and PTT 84. Sodium 139, potassium 3.5, chloride 103, bicarbonate 24, BUN 21, creatinine 1.2, glucose 114, calcium 9.0, phosphorous 3.8, magnesium 2.2, total bilirubin 1.3, AST 38, ALT 42, alkaline phosphatase 89, total protein 7.9, albumin 4.1. CT head preliminary results negative. CT angiogram consistent with symmetric [place] arterial blood flow also as well as cavernous internal artery circulation, right dominant vertebrobasilar circulation, identified moderate proximal left ICA stenosis immediately distal to its origin, no significant stenosis in the right ICA. HOSPITAL COURSE: The patient was admitted to ICU. The patient was given Integrilin. After the Integrilin, the patient was started on heparin. The patient was evaluated by neurologist window. He was not a candidate for t-PA. The patient's troponins were found to be elevated. The patient was evaluated by Cardiology, underwent cardiac catheterization. Cardiac cath consistent with triple vessel disease, for which he requires bypass surgery. The patient is being accepted to [facility] for further cardiac care. The patient is aware of the risks and benefits. The patient was explained that overall long-term prognosis is guarded. CONDITION UPON DISCHARGE: The patient is alert, awake, oriented x3 and hemodynamically stable. DISCHARGE INSTRUCTIONS: Follow up with CT Surgery. Follow up with Neurology. Follow up with PMD. DIET: Low sodium, low cholesterol pureed diet. Dara Bedoya MD
--- NOTE | 2017-12-14 02:46 | CARDCATH ---
PROCEDURE DATE: 12/09/2017 PROCEDURES: 1. Coronary angiogram. 2. Abdominal aortic angiogram and bilateral lower extremity arterial angiogram. 3. Radiological supervision and radiological interpretation of the coronary angiogram and peripheral angiogram. CLINICAL INDICATIONS: 1. Non ST elevation myocardial infarction. 2. Coronary artery disease. 3. CVA. 4. Hypertension. 5. Hyperlipidemia. 6. Peripheral arterial disease. REFERRING PHYSICIAN: 1. Dr. Eleno Segovia. 2. Dr. Dara Bedoya. PERFORMING PHYSICIAN: Dr. Jake Gardiner. PROCEDURE: After informed consent, patient was prepped and draped in the usual sterile fashion. A 2% lidocaine was given in the left groin for local anesthesia. Using micropuncture technique, 6-[place] sheath was introduced into left common femoral artery. A 6-[place] JR4 diagnostic catheter is engaged into right coronary artery. Contrast injected and right coronary angiogram was performed. A 5-[place] JL4 diagnostic catheter engaged into left main coronary artery. Contrast injected and left coronary angiogram was performed. Then pigtail catheter engaged into abdominal aorta. Contrast injected using power injector and abdominal aortogram and bilateral lower extremity arterial angiogram was performed. Patient tolerated the procedure well. FINDINGS: 1. Left main has a critical 95% stenosis. 2. LAD has a diffuse 70 to 80% proximal to distal disease. 3. Left circumflex is patent. 4. Right coronary artery is dominant. Ostial right coronary artery has a 98% and mid right coronary artery has a 90% stenosis. 5. LV ejection fraction is normal by echocardiogram. 6. Abdominal aortogram has revealed normal abdominal aorta but proximal right common iliac artery has a 90% stenosis. CONCLUSION: 1. Critical left main and triple vessel disease. 2. Peripheral arterial disease. Recommend coronary artery bypass surgery followed by percutaneous intervention of the right common iliac artery. Jake Gardiner MD
== END 2017-12-10 12:36 | disposition short-term general hospital (02) | DRG 64 ==
LOC: C.ER 11:09 → C.9I 12:50
PROVIDERS: ADMIT Internal Medicine; ATTEND Internal Medicine
PROC: B216YZZ Fluoroscopy of Right and Left Heart using Other Contrast (ICD-10-PCS; principal; 2017-12-09)
PROC: 4A023N8 Measurement of Cardiac Sampling and Pressure, Bilateral, Percutaneous Approach (ICD-10-PCS; 2017-12-09)
PROC: B41DYZZ Fluoroscopy of Aorta and Bilateral Lower Extremity Arteries using Other Contrast (ICD-10-PCS; 2017-12-09)
DX: I63.8 Other cerebral infarction (principal); I21.4 Non-ST elevation (NSTEMI) myocardial infarction; G81.91 Hemiplegia, unspecified affecting right dominant side; R47.1 Dysarthria and anarthria; E78.5 Hyperlipidemia, unspecified; I10 Essential (primary) hypertension; J45.909 Unspecified asthma, uncomplicated; R29.810 Facial weakness; I25.10 Atherosclerotic heart disease of native coronary artery without angina pectoris; G58.9 Mononeuropathy, unspecified

== ENCOUNTER 2018-09-21 15:21 | Inpatient (IN) | payer MEDICARE, BC ==
[2018-09-21 15:21] VITALS: BMI 24.0
[2018-09-21] MEDS ORDERED: Albuterol-Ipratrop 3 mg / 0.5 (3 ml) UD ONE ×2 (16:01→16:17)
--- NOTE | 2018-09-21 16:03 | C.PDOC ---
History Of Present Illness 63 year old male is referred to the ED by Dr. Peña for worsening shortness of breath for 3 weeks. Patient has history of COPD, CABG, Right Hemiparesis and history of CVA. Patient has increased dyspea on exertion per family "any little movement makes him winded." Patient has new onset of bilateral leg swelling for several weeks, which improved since starting Cilostazol. Patient has no home O2 use and has had limited improvement with home MDI. Additional information limited secondary to clinical condition. LIMITED DUE TO CLIN COND REFERRED DR PEÑA WORSENING SOB X 3 WEEKS. HO COPD, CABG, R HEMIPARESIS HO CVA. INCR ARELLANO PER FAMILY "ANY LITTLE MOVEMENT MAKES HIM WINDED". NEW ONSET B/L LEG SWELLING X SEV WEEKS, IMPROVED SINCE STARTING CILOSTAZOL. NO HOME O2 USE. LIMITED IMPROVE W HOME MDI. ROS LIMTED EXAM MOD DIST NONTOXIC LUNGS TACHYPNEA, RETRACTIONS B/L EXP WHEEZE NO RALES SPEAKING 2-3 WORD SENTENCES CV RRR EXT 3+PITING EDEMA B/L NEURO CHRONIC RUE/RLE WEAKNESS MILD AO3 SKIN WARM DRY REMAINDER NEG Time Seen by Provider: 09/21/18 15:45 Chief Complaint (Nursing): Shortness Of Breath History Per: Patient History/Exam Limitations: clinical condition Onset/Duration Of Symptoms: Days Current Symptoms Are (Timing): Still Present Current Respiratory Medications: See Home Med List Past Medical History Reviewed: Historical Data, Nursing Documentation, Vital Signs Vital Signs: Last Vital Signs Temp 97.7 F 09/21/18 15:38 Pulse 78 09/21/18 15:38 Resp 21 09/21/18 15:38 BP 135/72 09/21/18 15:38 Pulse Ox 79 L 09/21/18 15:38 - Medical History PMH: Asthma, CAD, COPD, HTN, Hypercholesterolemia Denies: Chronic Kidney Disease Surgical History: CABG (12/15/17 at [facility]) - [facility] Procedures EXERCISE TREATMENT OF MUSCULOSK WHOLE USING ASSIST EQUIPMENT (12/24/17) FLUOROSCOPY OF AORTA, BI LE ART USING OTH CONTRAST (12/06/17) FLUOROSCOPY OF RIGHT AND LEFT HEART USING OTHER CONTRAST (12/06/17) HOME MANAGEMENT TREATMENT USING ASSIST EQUIPMENT (12/24/17) INTRODUCE OF OTH THERAP SUBST INTO RESP TRACT, VIA OPENING (12/24/17) MEASURE CARDIAC SAMPL & PRESSURE, BILATERAL, PERC (12/06/17) Family History: States: Unknown Family Hx - Social History Hx Alcohol Use: Yes (10 years ago) Hx Substance Use: Yes (10 years ago) Review Of Systems Review Of Systems: ROS cannot be obtained secondary to pt's inabilty to answer questions. Physical Exam - Physical Exam Appears: Non-toxic, Other (in moderate distress ) Skin: Normal Color, Warm, Dry Head: Atraumatic, Normacephalic Eye(s): bilateral: Normal Inspection Oral Mucosa: Moist Neck: Supple Chest: Symmetrical, No Deformity, No Tenderness Cardiovascular: Rhythm Regular, No Murmur Respiratory: No Rales, Wheezing (expiratory ), Other (tachypnea, retractions, speaking in 2-3 word sentences ) Extremity: Normal ROM, Capillary Refill (less than 2 seconds ), Other (3+pitting edema bilaterally ) Pulses: Left Dorsalis Pedis: Normal, Right Dorsalis Pedis: Normal Neurological/Psych: Other (chronic right upper extremity/right lower extremity weakness, mild AOX3) ED Course And Treatment - Laboratory Results Result Diagrams: 09/21/18 16:22 09/21/18 16:55 ECG: Interpreted By Tn ECG Rhythm: R BBB ECG Interpretation: Abnormal Rate From EC O2 Sat by Pulse Oximetry: 79 Pulse Ox Interpretation: Abnormal - Radiology CXR: Interpreted by Tn CXR Interpretation: Yes: Other (B/L MILIARY PATTERN, NO VASC DENIZ/EFFUSION. NEW COMPARED TO 11/2017) Progress Note: Bloodwork, CT Chest, EKG, CXR ordered and reviewed. Duoneb INH, Rocephin IVP, Solu-Medrol IVP and Zithromax IV given. Progress - Re-Evaluation Re-evaluation Note: 09/21/18 16:41 STABLE ON VAPOTHERM 95%. IMPROVED COMPARED TO INITIAL PS FEELS BETTER D/W DR NAVAS AWARE OF ER FINDINGS WILL ADMIT. PENDING CALLBACK DR PEÑA 09/21/18 16:48 D/W DR PEÑA AWARE OF ER AND CXR. CHEST CT, WILL CONSULT - Data Reviewed Data Reviewed: Lab, Diagnostic imaging, EKG, Old records - Critical Care Citical Care: Excluding Proc Time Critical Care Time: 90 minutes Disposition Counseled Patient/Family Regarding: Studies Performed, Diagnosis - Disposition Disposition: HOSPITALIZED Disposition Time: 17:33 Condition: SERIOUS Forms: [facility] ([place]) - POA Present On Arrival: None - Clinical Impression Clinical Impression: Chronic congestive heart failure, Chr obstructive pulmonary disease w/ acute lower respiratory infxn - Scribe Statement The provider has reviewed the documentation as recorded by the Scribe (Yuridia Segovia) Provider Attestation: All medical record entries made by the Scribe were at my direction and personally dictated by me. I have reviewed the chart and agree that the record accurately reflects my personal performance of the history, physical exam, medical decision making, and the department course for this patient. I have also personally directed, reviewed, and agree with the discharge instructions and disposition.
[2018-09-21] MEDS: Albuterol-Ipratrop 3 mg / 0.5 (3 ml) UD IH SCH ×2 (16:15→16:25)
[2018-09-21 16:27] LABS: BASO # 0.2 K/uL (0.0-0.2); BASO % 1.4 % (0.0-2.0); EOS # 0.8 K/uL (0.0-0.7); EOS % 5.9 % (0.0-4.0); LYMPH # 0.6 K/uL (1.0-4.3); LYMPH % 4.5 % (20.0-40.0); MEAN CELL VOLUME 87.5 fL (80.0-94.0); MEAN CORPUSCULAR HEMOGLOBIN 28.4 pg (27.0-31.0); MEAN CORPUSCULAR HGB CONC 32.4 g/dL (33.0-37.0); MEAN PLATELET VOLUME 9.3 fL (7.2-11.7); MONO # 0.6 K/uL (0.0-0.8); MONO % 4.4 % (0.0-10.0); NEUT % 83.8 % (50.0-75.0); NRBC % 0.2 % (0.0-2.0); RBC 4.47 Mil/uL (4.40-5.90); RED CELL DISTRIBUTION WIDTH 17.8 % (11.5-14.5)
[2018-09-21 16:28] LABS: HEMOGLOBIN 12.7 g/dL (12.0-18.0); PLATELET COUNT 381 K/uL (130-400); WHITE BLOOD COUNT 13.2 K/uL (4.8-10.8)
[2018-09-21 16:33] LABS: VENOUS BLOOD GAS BASE EXCESS -1.5 mmol/L (0.0-2.0); VENOUS BLOOD GAS PCO2 41 mmHg (40-60); VENOUS BLOOD GAS PO2 24 mm/Hg (30-55); VENOUS BLOOD PH 7.37 (7.32-7.43)
[2018-09-21] MEDS ORDERED: Azithromycin 500 MG in Sodium Chloride 0.9% 250 ML IV STA (16:47)
[2018-09-21 16:55] LABS: ANISOCYTOSIS SLIGHT; EOSINOPHIL 4 % (0-4); LYMPHOCYTE 6 % (20-40); MONOCYTE 4 % (0-10); NEUTROPHIL 86 % (50-75); PLATELET ESTIMATE NORMAL (NORMAL); TOTAL CELLS COUNTED 100
[2018-09-21 17:19] LABS: ALB/GLOB RATIO 0.8 (1.0-2.1); ALBUMIN 3.4 g/dL (3.5-5.0); ALT/SGPT 64 U/L (21-72); AST/SGOT 47 U/L (17-59); BLOOD UREA NITROGEN 34 mg/dL (9-20); CALCIUM 8.3 mg/dl (8.6-10.4); GFR NON-AFRICAN AMERICAN 47
--- NOTE | 2018-09-21 17:23 | RAD ---
Date of service: 09/21/2018 HISTORY: SOB COMPARISON: Comparison made with chest radiograph dated 12/08/2017. FINDINGS: LUNGS: There has progression of diffuse interstitial infiltrates; rule out interstitial pneumonia, pulmonary edema versus no underlying element of chronic interstitial disease PLEURA: No significant pleural effusion identified, no pneumothorax apparent. CARDIOVASCULAR: Mild aortic atherosclerotic calcification present. Cardiomegaly... Sternotomy wires again noted OSSEOUS STRUCTURES: No significant abnormalities. VISUALIZED UPPER ABDOMEN: Normal. OTHER FINDINGS: None. IMPRESSION: Interval progression of diffuse interstitial infiltrates; rule out interstitial pneumonia, pulmonary edema versus no underlying element of chronic interstitial disease
[2018-09-21 17:30] LABS: B-TYPE NATRIURETIC PEPTIDE 4790 pg/mL (0-900)
[2018-09-21] MEDS ORDERED: cefTRIAXone 1 gm 1 GM/100 ML BAG IVPB ONE (17:32)
[2018-09-21] MEDS ORDERED: Azithromycin 500mg/250ML NS 500 MG/250 ML BAG IVPB ONE (17:49)
--- NOTE | 2018-09-21 18:07 | CT ---
Date of service: 09/21/2018 PROCEDURE: CT Chest without contrast HISTORY: SOB ABN CXR COMPARISON: None available. TECHNIQUE: Contiguous axial images were obtained through the chest without intravenous contrast enhancement. Sagittal and coronal reconstructions were performed. Radiation dose: Total exam DLP = 431.75 mGy-cm. This CT exam was performed using one or more of the following dose reduction techniques: Automated exposure control, adjustment of the mA and/or kV according to patient size, and/or use of iterative reconstruction technique. FINDINGS: LUNGS: There are diffuse reticular and reticulonodular opacities in the lungs. No evidence of honeycombing changes. Diffuse interstitial septal thickening is also noted. Small foci of airspace consolidation are noted adjacent to the fissures. No evidence of significant bronchiectasis or cystic formation. MEDIASTINUM: The thoracic aorta is mildly ectatic. The heart is mildly to moderately enlarged. Main pulmonary artery is mildly enlarged . [id number] mediastinal lymphadenopathy are noted. No aortic atherosclerotic calcification. PLEURA: There is small to moderate left pleural effusion BONES: No fracture. No destructive lesion. UPPER ABDOMEN: Grossly unremarkable. OTHER FINDINGS: None. IMPRESSION: Diffuse reticular opacities in the lungs may represent interstitial septal thickening. The interstitial pneumonia LIP nonspecific interstitial pneumonia NSIP, pulmonary edema and less likely neoplasm such as lymphoma or leukemia. Cardiomegaly. Moderate left pleural effusion. Mediastinal lymphadenopathy.
[2018-09-22] MEDS: Acetylcysteine 20% Inhal Soln (4ml) IH SCH ×6 (00:25→20:18)
[2018-09-22] MEDS: Albuterol-Ipratrop 3 mg / 0.5 (3 ml) UD INH SCH ×5 (03:16→20:18)
[2018-09-22] MEDS: Pantoprazole 40 mg EC Tab PO SCH (05:32)
[2018-09-22] MEDS ORDERED: MethylPREDNISolone 40 mg Vial IVP SCH (06:00)
[2018-09-22] MEDS: Fluticasone-Vilanterol 200/25mcg Diskus INH SCH (08:29)
[2018-09-22] MEDS: Multiple Vitamins Tab PO SCH (09:57)
[2018-09-22] MEDS: Azithromycin 500 MG in Sodium Chloride 0.9% 250 ML IVPB SCH (09:57)
--- NOTE | 2018-09-22 16:01 | CP.PCM.CON ---
History of Present Illness - History of Present Illness History of Present Illness: Patient is a 63-year-old male with PMHx of asthma, CAD s/p CABG, COPD, HTN, and HLD who was sent to the ED for worsening shortness of breath for 3 weeks and admitted for COPD exacerbation. During examination, patient was on Vapotherm at 20 LPM and 60% FiO2. At rest he denies being short of breath, but states that once he starts talking or moves, his shortness of breath worsens. Patient denies any cough, fevers, chills, headaches, or nasal congestion. Additional information is limited due to patient's clinical condition. Chest CT 11/5 - Interval progression of diffuse interstitial infiltrates; rule out interstitial pneumonia, pulmonary edema versus no underlying element of chronic interstitial disease. CXR 11/5 - Interval progression of diffuse interstitial infiltrates; rule out interstitial pneumonia, pulmonary edema versus no underlying element of chronic interstitial disease. PMHx: COPD, HTN, CAD, HLD PSHx: CABG Allergies: NKDA Review of Systems - Review of Systems All systems: reviewed and no additional remarkable complaints except (complaining of shortness of breath) Past Patient History - Infectious Disease Hx of Infectious Diseases: None - Past Medical History & Family History Past Medical History?: Yes - Past Social History Smoking Status: Former Smoker - CARDIAC Hx Hypercholesterolemia: Yes Hx Hypertension: Yes - PULMONARY Hx Chronic Obstructive Pulmonary Disease (COPD): Yes - NEUROLOGICAL HX Cerebrovascular Accident: Yes - HEENT Hx HEENT Problems: No Hx Blind: No Hx Cataracts: No Hx Deafness: No Hx Difficulty Chewing: No Hx Epistaxis: No Hx Glaucoma: No Hx Macular Degeneration: No - RENAL Hx Chronic Kidney Disease: No - ENDOCRINE/METABOLIC Hx Endocrine Disorders: No - HEMATOLOGICAL/ONCOLOGICAL Hx Blood Disorders: No - INTEGUMENTARY Hx Dermatological Problems: No - MUSCULOSKELETAL/RHEUMATOLOGICAL Hx Falls: No - GASTROINTESTINAL Hx Gastrointestinal Disorders: No - GENITOURINARY/GYNECOLOGICAL Hx Genitourinary Disorders: No - PSYCHIATRIC Hx Substance Use: Yes (10 years ago) - SURGICAL HISTORY Hx Coronary Artery Bypass Graft: Yes (12/15/17 at [facility] [place]) - ANESTHESIA Hx Anesthesia: Yes Hx Anesthesia Reactions: No Hx Malignant Hyperthermia: No Has any member of the family had a problem w/ anesthesia?: No Meds Allergies/Adverse Reactions: Allergies Allergy/AdvReac Type Severity Reaction Status Date / Time No Known Allergies Allergy Verified 09/21/18 15:37 - Medications Medications: Current Medications Acetylcysteine (Acetylcysteine 20%) 3 ml IH RQ4 [facility] Last Admin: 09/22/18 13:29 Dose: 3 ml Albuterol/Ipratropium (Duoneb 3 Mg/0.5 Mg (3 Ml) Ud) 3 ml INH RQ6 [facility] Last Admin: 09/22/18 13:29 Dose: 3 ml Amiodarone HCl (Cordarone) 200 mg PO Q12 [facility] Last Admin: 09/22/18 09:57 Dose: 200 mg Aspirin (Ecotrin) 81 mg PO DAILY [facility] Last Admin: 09/22/18 09:57 Dose: 81 mg Clopidogrel Bisulfate (Plavix) 75 mg PO DAILY [facility] Last Admin: 09/22/18 09:57 Dose: 75 mg Docusate Sodium (Colace) 100 mg PO BID [facility] Last Admin: 09/22/18 09:57 Dose: 100 mg Fluticasone/Vilanterol (Breo Ellipta 200-25 Mcg Inh) 1 puff INH RQD [facility] Last Admin: 09/22/18 08:29 Dose: Not Given Heparin Sodium (Porcine) (Heparin) 5,000 units SC Q12 [facility] Last Admin: 09/22/18 09:57 Dose: 5,000 units Azithromycin 500 mg/ Sodium (Chloride) 250 mls @ 250 mls/hr IVPB DAILY [facility]; Protocol Last Admin: 09/22/18 09:57 Dose: 250 mls/hr Ceftriaxone Sodium 1 gm/ (Sodium Chloride) 100 mls @ 100 mls/hr IVPB DAILY [facility]; Protocol Last Admin: 09/22/18 10:02 Dose: 100 mls/hr Lactulose (Enulose) 20 gm PO BID [facility] Last Admin: 09/22/18 09:57 Dose: 20 gm Methylprednisolone (Solu-Medrol) 40 mg IVP Q6 [facility] Metoprolol Tartrate (Lopressor) 12.5 mg PO Q12 [facility] Last Admin: 09/22/18 09:57 Dose: 12.5 mg Multivitamins (Hexavitamin) 1 tab PO DAILY [facility] Last Admin: 09/22/18 09:57 Dose: 1 tab Pantoprazole Sodium (Protonix Ec Tab) 40 mg PO 0630 [facility] Last Admin: 09/22/18 05:32 Dose: 40 mg Rosuvastatin Calcium (Crestor) 40 mg PO HS [facility] Physical Exam - Head Exam Head Exam: ATRAUMATIC, NORMOCEPHALIC - ENT Exam ENT Exam: Mucous Membranes Moist - Neck Exam Neck exam: Positive for: Normal Inspection - Respiratory Exam Respiratory Exam: Rales, Rhonchi - Cardiovascular Exam Cardiovascular Exam: REGULAR RHYTHM - GI/Abdominal Exam GI & Abdominal Exam: Normal Bowel Sounds - Extremities Exam Extremities exam: Positive for: normal inspection - Neurological Exam Neurological exam: Alert, Oriented x3 Results - Vital Signs Recent Vital Signs: Last Vital Signs Temp 98.0 F 09/22/18 07:11 Pulse 58 L 09/22/18 15:09 Resp 23 09/22/18 13:29 BP 120/72 09/22/18 07:11 Pulse Ox 88 L 09/22/18 15:09 - Labs Result Diagrams: 09/21/18 16:22 09/21/18 16:55 Labs: Laboratory Results - last 24 hr 09/21/18 09/21/18 09/21/18 16:22 16:24 16:55 WBC 13.2 H D RBC 4.47 Hgb 12.7 D Hct 39.1 MCV 87.5 MCH 28.4 MCHC 32.4 L RDW 17.8 H Plt Count 381 D MPV 9.3 Neut % (Auto) 83.8 H Lymph % (Auto) 4.5 L Phillips % (Auto) 4.4 Eos % (Auto) 5.9 H Baso % (Auto) 1.4 Neut # (Auto) 11.0 H Lymph # (Auto) 0.6 L Phillips # (Auto) 0.6 Eos # (Auto) 0.8 H Baso # (Auto) 0.2 Neutrophils % (Manual) 86 H Lymphocytes % (Manual) 6 L Monocytes % (Manual) 4 Eosinophils % (Manual) 4 Platelet Estimate Normal Anisocytosis (manual) Slight ESR pO2 24 L VBG pH 7.37 VBG pCO2 41 VBG HCO3 22.2 VBG Total CO2 25.0 VBG O2 Sat (Calc) 37.6 L VBG Base Excess -1.5 L VBG Potassium 3.8 Sodium 145.0 141 Chloride 112.0 H 111 H Glucose 98 Lactate 1.3 Potassium 4.2 Carbon Dioxide 22 Anion Gap 13 BUN 34 H Creatinine 1.5 Est GFR ( Amer) 57 Est GFR (Non-Af Amer) 47 Random Glucose 105 Calcium 8.3 L Total Bilirubin 2.5 H AST 47 ALT 64 Alkaline Phosphatase 443 H D Troponin I < 0.0120 C-React Prot High Sens NT-Pro-B Natriuret Pep 4790 H Total Protein 7.5 Albumin 3.4 L Globulin 4.1 H Albumin/Globulin Ratio 0.8 L Venous Blood Potassium 3.8 09/22/18 09/22/18 13:48 13:48 WBC RBC Hgb Hct MCV MCH MCHC RDW Plt Count MPV Neut % (Auto) Lymph % (Auto) Phillips % (Auto) Eos % (Auto) Baso % (Auto) Neut # (Auto) Lymph # (Auto) Phillips # (Auto) Eos # (Auto) Baso # (Auto) Neutrophils % (Manual) Lymphocytes % (Manual) Monocytes % (Manual) Eosinophils % (Manual) Platelet Estimate Anisocytosis (manual) ESR 53 H pO2 VBG pH VBG pCO2 VBG HCO3 VBG Total CO2 VBG O2 Sat (Calc) VBG Base Excess VBG Potassium Sodium Chloride Glucose Lactate Potassium Carbon Dioxide Anion Gap BUN Creatinine Est GFR ( Amer) Est GFR (Non-Af Amer) Random Glucose Calcium Total Bilirubin AST ALT Alkaline Phosphatase Troponin I C-React Prot High Sens > 15.00 H NT-Pro-B Natriuret Pep Total Protein Albumin Globulin Albumin/Globulin Ratio Venous Blood Potassium Assessment & Plan (1) Acute respiratory failure with hypoxia Status: Acute Comment: cAT scan of the chest consistent with interstitial pneumonitis. r/o Amiodarone toxicity. r/o connective tissue disease. IV steroids. Nebulizer treatment. HANY, ESR, MIKE LEVEL (2) Chr obstructive pulmonary disease w/ acute lower respiratory infxn Status: Acute (3) Chronic congestive heart failure Status: Acute
--- NOTE | 2018-09-22 17:08 | CARD ---
APPROVED REPORT Date of service: 09/21/2018 EKG Measurement Heart [id number] <Conclusion> Normal sinus rhythm Possible Left atrial enlargement Right bundle branch block Cannot rule out Inferior infarct, age undetermined Anteroseptal infarct, age undetermined Abnormal ECG
[2018-09-22] MEDS: MethylPREDNISolone 40 mg Vial IVP SCH (17:56)
[2018-09-23] MEDS: Acetylcysteine 20% Inhal Soln (4ml) IH SCH ×6 (00:01→19:24)
[2018-09-23] MEDS: MethylPREDNISolone 40 mg Vial IVP SCH ×4 (00:08→17:10)
--- NOTE | 2018-09-23 00:44 | PN ---
DATE: 09/22/2018 SUBJECTIVE: The patient is on high-flow oxygen. He is afebrile. PHYSICAL EXAMINATION VITAL SIGNS: Blood pressure 129/83, temperature 98.2, respiratory rate 20 and pulse 95. HEENT: Pupils equal and reactive to light. Normal-appearing mucosa of the conjunctivae, oropharynx and nasal membrane mucosa. NECK: Supple. No JVD. No carotid bruit. No lymph node. No thyromegaly. CHEST AND LUNGS: Bilateral symmetrical expansion. Good air exchange. No rales. There are scattered rhonchi all over lung alfonso. CARDIOVASCULAR SYSTEM: PMI not localized. S1, S2. No additional sounds. ABDOMEN: Normoactive bowel sounds. No tenderness. No organomegaly. No masses. EXTREMITIES: No cyanosis, no clubbing, no edema. CENTRAL NERVOUS SYSTEM: Alert, awake, oriented x2. The patient has right-sided hemiparesis. ASSESSMENT: Interstitial lung disease, exacerbation of chronic obstructive pulmonary disease, type 2 diabetes mellitus, hypertension, right-sided hemiparesis, cerebrovascular accident. PLAN: Continue high-flow oxygen, IV steroids and bronchodilators. Follow Pulmonary consult, echocardiogram, Cardiology consult. Violeta Clark MD
--- NOTE | 2018-09-23 02:43 | CON ---
DATE: 09/22/2018 CARDIOLOGY CONSULTATION REASON FOR CONSULTATION: Shortness of breath. HISTORY OF PRESENT ILLNESS: The patient is a 63-year-old male who has a history of chronic obstructive lung disease, coronary artery disease who has a history of coronary artery bypass surgery earlier this year. The patient in 11/2017 underwent cardiac catheterization, which revealed critical left main disease as well as three-vessel coronary artery disease and underwent coronary artery bypass surgery subsequently at [facility]. The patient has a history of stroke prior to his coronary artery bypass surgery with residual right hemiparesis. The patient presented because of shortness of breath and cough. The patient also reported bilateral leg swelling. The patient is also known to have disease. SOCIAL HISTORY: The patient is a former smoker. He is nondrinker. He lives by himself with assistance of home health aid. MEDICATIONS: Current medications are acetylcysteine 3 mL inhalation every 4 hours, Zithromax 500 mg intravenously daily, Rocephin 1 g intravenously daily, Colace 100 mg twice a day, amiodarone 200 mg twice a day, aspirin 81 mg once a day, 20 mg twice a day, heparin 5000 units subcutaneously every 12 hours, Lopressor 12.5 mg twice a day, Plavix 75 mg once a day, Protonix 40 mg once a day, Solu-Medrol 40 mg intravenously every 6 hours. REVIEW OF SYSTEMS: The patient denies any fever or chills. He denies any hemoptysis. He denies any loss of appetite or any recent loss of weight. PHYSICAL EXAMINATION: GENERAL: The patient is an elderly male who was mildly tachypneic, but does not appear to be in acute distress. VITAL SIGNS: Blood pressure 115/69, heart rate 74, temperature 98, respirations 20. HEENT: Normocephalic. CHEST: Right basal coarse crepitations. Scattered bilateral rhonchi. Scattered wheezing. HEART: S1 and S2 are regular. ABDOMEN: Soft. EXTREMITIES: No edema. LABORATORY DATA: SMA-7: Sodium 141, potassium 4.2, chloride 111, CO2 of 22, glucose 105, BUN 34, creatinine 1.5. ProBNP 4790. Hemoglobin and hematocrit are 12.7 and 39.1, white count 13.2, platelet count 281,000. EKG revealed sinus rhythm at the rate of 77, right bundle-branch block, old inferior and old anteroseptal infarct. Left atrial enlargement. Chest x-ray: Interval progression of diffuse interstitial infiltrate, rule out interstitial pneumonia, pulmonary edema versus chronic interstitial lung disease. Chest CT scan: Diffuse reticular opacities in the lungs, may represent interstitial septal thickening, interstitial pneumonia, pulmonary edema, and less likely neoplasm. ASSESSMENT: 1. Coronary artery disease, status post coronary artery bypass surgery either in 11/2017 or early 12/2017. 2. History of residual right hemiparesis. 3. Chronic obstructive lung disease. 4. Rule out systolic heart failure. 5. Mild prerenal azotemia. RECOMMENDATIONS: Continue current acetylcysteine. Continue IV Rocephin at 1 g daily and IV Zithromax 500 mg daily. Continue amiodarone 200 mg daily, aspirin 81 mg once a day, subcutaneous heparin 5000 units every 8 hours, Lopressor 12.5 mg twice a day, Plavix 75 mg once a day, Solu-Medrol 40 mg intravenously every 6 hours. Obtain an echocardiogram. Jose Daniel Martinez MD
[2018-09-23] MEDS: Albuterol-Ipratrop 3 mg / 0.5 (3 ml) UD INH SCH ×4 (03:26→19:24)
[2018-09-23] MEDS: Pantoprazole 40 mg EC Tab PO SCH (05:30)
[2018-09-23] MEDS: Fluticasone-Vilanterol 200/25mcg Diskus INH SCH (08:18)
--- NOTE | 2018-09-23 09:02 | HP ---
HISTORY OF PRESENT ILLNESS: This is a 63-year-old male with history of multiple medical problems including CVA with right-sided weakness, coronary artery disease status post coronary artery bypass graft, hypertension, type 2 diabetes mellitus, COPD, ex-smoker, presented with shortness of breath and desaturation. The patient was seen by envelope sealer operator on the day of admission and he was found to be hypoxic. Subsequently the patient was referred to emergency room for evaluation where he was started on high flow oxygen, was given diuretics, bronchodilators, IV steroids and admitted to telemetry floor for further management. The patient admits that he has symptoms of cough but no fever or chills. Other review of system is negative. ALLERGIES: NO KNOWN ALLERGY. MEDICATIONS: Reviewed and ordered as per MAR. SOCIAL HISTORY: Ex-smoker. No EtOH or substance abuse. FAMILY HISTORY: Not contributory. PHYSICAL EXAMINATION: VITAL SIGNS: The patient was in bed, in mild respiratory distress on high-flow oxygen with blood pressure 135/72, temperature 97.7, respiratory rate 20 and pulse 78. HEENT: Pupils equal, reactive to light. Normal-appearing mucosa of the conjunctivae, oropharynx and nasal membrane mucosa. NECK: Supple. No JVD. No carotid bruit. No lymph node. No thyromegaly. CHEST AND LUNGS: Bilateral symmetrical expansion. Good air exchange. Bilateral scattered rhonchi with coarse rales. CARDIOVASCULAR SYSTEM: PMI not localized. S1, S2. No additional sounds. ABDOMEN: Normoactive bowel sounds. No tenderness. No organomegaly. No masses. EXTREMITIES: No cyanosis, no clubbing, no edema. ORE ROASTER: Alert, awake, oriented x2. No neurological deficit could be appreciated except for right-sided hemiparesis. ASSESSMENT: 1. Exacerbation of chronic obstructive pulmonary disease. 2. Possible congestive heart failure 3. Cerebrovascular accident with right-sided hemiparesis. 4. Hypertension. 5. coronary artery disease status post coronary artery bypass graft. PLAN Continue current medications including diuretics, IV steroids, bronchodilators. Follow with pulmonary recommendations. Edita MD Eduardo
[2018-09-23] MEDS: Multiple Vitamins Tab PO SCH (09:11)
[2018-09-23] MEDS: Azithromycin 500 MG in Sodium Chloride 0.9% 250 ML IVPB SCH (11:00)
--- NOTE | 2018-09-23 14:56 | CP.PCM.PN ---
Subjective - Date & Time of Evaluation Date of Evaluation: 09/23/18 Time of Evaluation: 11:50 - Subjective Subjective: patient seen and examined Cough and breathing better Afebrile No chest pain Amiodarone discontinued Case discussed with cardiology Continue IV steroids for amiodarone toxicity Objective - Vital Signs/Intake and Output Vital Signs (last 24 hours): Temp Pulse Resp BP Pulse Ox 97.9 F 64 85 H 114/69 93 L 09/23/18 08:00 09/23/18 08:00 09/23/18 13:45 09/23/18 08:00 09/23/18 08:00 Intake and Output: 09/23/18 09/23/18 06:59 18:59 Intake Total 430 Output Total 350 Balance 80 - Medications Medications: Current Medications Acetylcysteine (Acetylcysteine 20%) 3 ml IH RQ4 [facility] Last Admin: 09/23/18 13:28 Dose: Not Given Albuterol/Ipratropium (Duoneb 3 Mg/0.5 Mg (3 Ml) Ud) 3 ml INH RQ6 [facility] Last Admin: 09/23/18 13:28 Dose: 3 ml Aspirin (Ecotrin) 81 mg PO DAILY [facility] Last Admin: 09/23/18 09:11 Dose: 81 mg Clopidogrel Bisulfate (Plavix) 75 mg PO DAILY [facility] Last Admin: 09/23/18 09:11 Dose: 75 mg Docusate Sodium (Colace) 100 mg PO BID [facility] Last Admin: 09/23/18 09:11 Dose: 100 mg Fluticasone/Vilanterol (Breo Ellipta 200-25 Mcg Inh) 1 puff INH RQD [facility] Last Admin: 09/23/18 08:18 Dose: Not Given Heparin Sodium (Porcine) (Heparin) 5,000 units SC Q12 [facility] Last Admin: 09/23/18 09:11 Dose: 5,000 units Azithromycin 500 mg/ Sodium (Chloride) 250 mls @ 250 mls/hr IVPB DAILY [facility]; Protocol Last Admin: 09/23/18 11:00 Dose: 250 mls/hr Ceftriaxone Sodium 1 gm/ (Sodium Chloride) 100 mls @ 100 mls/hr IVPB DAILY [facility]; Protocol Last Admin: 09/23/18 11:00 Dose: 100 mls/hr Lactulose (Enulose) 20 gm PO BID [facility] Last Admin: 09/23/18 09:11 Dose: 20 gm Methylprednisolone (Solu-Medrol) 40 mg IVP Q6 [facility] Last Admin: 09/23/18 14:08 Dose: 40 mg Metoprolol Tartrate (Lopressor) 12.5 mg PO Q12 [facility] Last Admin: 09/23/18 09:11 Dose: 12.5 mg Multivitamins (Hexavitamin) 1 tab PO DAILY [facility] Last Admin: 09/23/18 09:11 Dose: 1 tab Pantoprazole Sodium (Protonix Ec Tab) 40 mg PO 0630 [facility] Last Admin: 09/23/18 05:30 Dose: 40 mg Rosuvastatin Calcium (Crestor) 40 mg PO HS [facility] Last Admin: 09/22/18 22:24 Dose: 40 mg - Labs Labs: 09/21/18 16:22 09/21/18 16:55 - Head Exam Head Exam: ATRAUMATIC, NORMOCEPHALIC - ENT Exam ENT Exam: Mucous Membranes Moist - Neck Exam Neck Exam: Normal Inspection - Cardiovascular Exam Cardiovascular Exam: REGULAR RHYTHM - GI/Abdominal Exam GI & Abdominal Exam: Soft, Normal Bowel Sounds Assessment and Plan (1) Acute respiratory failure with hypoxia Assessment & Plan: continue oxygen IV steroids Nebulizer treatment IV diuretics Patient high risk for bronchoscopy because of hypoxemia Status: Acute (2) Chr obstructive pulmonary disease w/ acute lower respiratory infxn Status: Acute (3) Chronic congestive heart failure Status: Acute
--- NOTE | 2018-09-23 17:22 | PN ---
DATE: 09/23/2018 SUBJECTIVE: The patient's no retrosternal chest pain. PHYSICAL EXAMINATION: VITAL SIGNS: Blood pressure 114/69, heart rate 64, temperature 97.9, respirations 20. HEENT: Normocephalic. CHEST: Bilateral coarse crepitations. HEART: S1 and S2 regular. EXTREMITIES: No edema. ASSESSMENT: 1. Coronary artery disease status post coronary artery bypass surgery earlier this year. 2. Cerebrovascular accident with residual right hemiparesis. 3. Pulmonary fibrosis. 4. Mild prerenal azotemia. RECOMMENDATIONS: Continue current IV Rocephin at 1 g daily, Crestor 40 mg once a day, aspirin 81 mg once a day, Lopressor 12.5 mg once a day, Solu-Medrol 40 mg intravenously every 6 hours. Case was discussed with . Amiodarone was discontinued in view of possible pulmonary toxicity related to amiodarone. I will review the echocardiographic study that was performed today. Jose Daniel Martinez MD
--- NOTE | 2018-09-23 18:42 | CARD ---
APPROVED REPORT Date of service: 09/23/2018 EXAM: Two-dimensional and M-mode echocardiogram with Doppler and color Doppler. Other Information Quality : GoodRhythm : INDICATION CVA/TIA Cardiac Disease: CAD Congestive Heart Failure SOB RISK FACTORS Hypertension Hyperlipidemia 2D DIMENSIONS IVSd1.0 (0.7-1.1cm)Aortic Root (2D)2.5 (2.0-3.7cm) LVDd4.1 (3.9-5.9cm)PWd1.1 (0.7-1.1cm) LA Mrbsso75 (18-58mL)LVDs3.1 (2.5-4.0cm) FS (%) 23.9 %LVEF (%)48.1 (>50%) LVEF (Esqueda's)46.71 %IVC0.00 cm M-Mode DIMENSIONS Left Atrium (MM)4.94 (2.5-4.0cm)IVSd0.88 (0.7-1.1cm) Aortic Root2.32 (2.2-3.7cm)LVDd5.01 (4.0-5.6cm) Aortic Cusp Exc.1.44 (1.5-2.0cm)PWd0.79 (0.7-1.1cm) FS (%) 31 %LVDs3.46 (2.0-3.8cm) LVEF (%)58 (>50%) Mitral Valve MV E Swzprxwj492.0cm/sMV A Tiilpbig15.0cm/sE/A ratio2.1 TDI Lateral E' Peak V7.64cm/sMedial E' Peak V5.51cm/sE/Lateral E'15.2 E/Medial E'21.1 Tricuspid Valve TR Peak Titzffhb679ld/sTR Peak Gr.[id number] LEFT VENTRICLE The left ventricle is normal size. There is normal left ventricular wall thickness. Left ventricle systolic function is mildly impaired. The Ejection Fraction is 45-50%. There is mild dyskinesis in the mid-anteroseptal wall consistent with CAD. The left ventricular diastolic function is normal. No left ventricle thrombus noted on this study. RIGHT VENTRICLE The right ventricle is normal size. The right ventricular systolic function is normal. ATRIA The left atrium is mildly dilated. The right atrium is mildly dilated. AORTIC VALVE The aortic valve is mildly to moderately sclerotic. The aortic valve is trileaflet. There is mild aortic regurgitation. There is no aortic valvular stenosis. Cannot exclude aortic valvular vegetation. MITRAL VALVE Mitral annular calcification is mild to moderate. The mitral valve leaflets are thickened. There is no evidence of mitral valve prolapse. There is no mitral valve stenosis. Mitral regurgitation is mild to moderate. TRICUSPID VALVE The tricuspid valve is normal in structure. There is moderate to severe tricuspid regurgitation. Right ventricular systolic pressure is estimated at 30-40 mmHg. There is no pulmonary hypertension. There is no tricuspid valve prolapse or vegetation. There is no tricuspid valve stenosis. PULMONIC VALVE The pulmonic valve is not well visualized. There is trace to mild pulmonic valvular regurgitation. GREAT VESSELS The aortic root is normal in size. The IVC collapses <50% with inspiration. PERICARDIAL EFFUSION There is no pericardial effusion. There is no pleural effusion. <Conclusion> The left ventricle is normal size. Left ventricle systolic function is mildly impaired. The Ejection Fraction is 45-50%. There is mild dyskinesis in the mid-anteroseptal wall consistent with CAD. The left ventricular diastolic function is normal. The right ventricle is normal size. The right ventricular systolic function is normal. The left atrium is mildly dilated. The right atrium is mildly dilated. There is mild aortic regurgitation. Mitral regurgitation is mild to moderate. There is moderate to severe tricuspid regurgitation. There is trace to mild pulmonic valvular regurgitation.
[2018-09-24] MEDS: MethylPREDNISolone 40 mg Vial IVP SCH ×5 (00:06→23:43)
[2018-09-24] MEDS: Albuterol-Ipratrop 3 mg / 0.5 (3 ml) UD INH SCH ×4 (00:50→20:16)
[2018-09-24] MEDS: Acetylcysteine 20% Inhal Soln (4ml) IH SCH ×5 (00:50→20:16)
--- NOTE | 2018-09-24 03:08 | PN ---
DATE: 09/23/2018 SUBJECTIVE: The patient was seen today, 09/23/2018. He was started on high-flow oxygen. Subjectively, he is feeling better. PHYSICAL EXAMINATION: VITAL SIGNS: Blood pressure 124/74, temperature 97.2, respiratory rate 20, and pulse 56. HEENT: Pupils equal and reactive to light. Normal appearing mucosa of the conjunctivae, oropharynx, and nasal membrane mucosa. NECK: Supple. No JVD. No carotid bruit. No lymph node. No thyromegaly. CHEST AND LUNGS: Bilateral symmetrical expansion. Good air exchange. Few scattered rhonchi. CARDIOVASCULAR SYSTEM: PMI not localized. S1, S2. No additional sounds. ABDOMEN: Normoactive bowel sounds. No tenderness. No organomegaly. No masses. EXTREMITIES: No cyanosis. No clubbing. No edema. CENTRAL NERVOUS SYSTEM: Alert, awake, and oriented x2. No neurological deficit could be appreciated. ASSESSMENT: 1. Interstitial lung disease, likely secondary to amiodarone which was started. 2. Hypertension. 3. Cerebrovascular accident with right-sided weakness. 4. Coronary artery disease, status post coronary artery bypass graft. 5. Chronic obstructive pulmonary disease. 6. Ex-smoker. PLAN: Continue high-flow oxygen. Follow recommendations as per software consultant and prison psychiatrist including antibiotics and bronchodilators. Violeta Clark MD
[2018-09-24] MEDS: Pantoprazole 40 mg EC Tab PO SCH (05:48)
[2018-09-24] MEDS: Fluticasone-Vilanterol 200/25mcg Diskus INH SCH (09:00)
[2018-09-24] MEDS: Multiple Vitamins Tab PO SCH (09:47)
[2018-09-24] MEDS: Azithromycin 500 MG in Sodium Chloride 0.9% 250 ML IVPB SCH (09:48)
[2018-09-24 10:14] LABS: BASO % 0.3 % (0.0-2.0); HEMOGLOBIN 12.3 g/dL (12.0-18.0); LYMPH # 0.5 K/uL (1.0-4.3); LYMPH % 3.7 % (20.0-40.0); MEAN CORPUSCULAR HGB CONC 32.6 g/dL (33.0-37.0); MEAN PLATELET VOLUME 10.1 fL (7.2-11.7); MONO # 0.2 K/uL (0.0-0.8); MONO % 1.7 % (0.0-10.0); NEUT # 11.8 K/uL (1.8-7.0); NEUT % 94.3 % (50.0-75.0); PLATELET COUNT 343 K/uL (130-400); RBC 4.26 Mil/uL (4.40-5.90); RED CELL DISTRIBUTION WIDTH 17.6 % (11.5-14.5); WHITE BLOOD COUNT 12.6 K/uL (4.8-10.8)
[2018-09-24 11:04] LABS: LYMPHOCYTE 3 % (20-40); MONOCYTE 2 % (0-10); NEUTROPHIL 95 % (50-75); PLATELET ESTIMATE NORMAL (NORMAL); TOTAL CELLS COUNTED 100
[2018-09-24 11:05] LABS: ANISOCYTOSIS SLIGHT
[2018-09-24 11:06] LABS: POLYCHROMIC SLIGHT
[2018-09-24 11:17] LABS: ALB/GLOB RATIO 0.8 (1.0-2.1); ALBUMIN 3.2 g/dL (3.5-5.0); ALT/SGPT 88 U/L (21-72); AST/SGOT 45 U/L (17-59); BLOOD UREA NITROGEN 44 mg/dL (9-20); CALCIUM 8.3 mg/dl (8.6-10.4); GFR NON-AFRICAN AMERICAN 55
[2018-09-24] MEDS ORDERED: Albuterol-Ipratrop 3 mg / 0.5 (3 ml) UD INH STA (15:05)
[2018-09-24] MEDS ORDERED: Sod Polystyrene Sulf 15 gm/60 ml Susp PO ONE (15:30)
--- NOTE | 2018-09-24 15:38 | CP.PCM.PN ---
Subjective - Date & Time of Evaluation Date of Evaluation: 09/24/18 Time of Evaluation: 15:35 - Subjective Subjective: Patient seen and examined at bedside this morning. Patient had on vapotherm. He denies chest pain, SOB, nausea, vomiting, diarrhea, constipation, abdominal pain. Patient has SOB only on ambulation without his oxygen such as if he is to go to the bathroom. Patient states he has home oxygen. Per RN later in the day, she d/fariba the vapotherm and put him on 4L Nasal Cannula. Patient states he feels fine with the transition; denies SOB at rest. Objective - Vital Signs/Intake and Output Vital Signs (last 24 hours): Temp Pulse Resp BP Pulse Ox 97.8 F 82 24 118/66 93 L 09/24/18 07:03 09/24/18 12:49 09/24/18 08:40 09/24/18 07:03 09/24/18 14:05 Intake and Output: 09/24/18 09/24/18 06:59 18:59 Output Total 350 Balance -350 - Medications Medications: Current Medications Acetylcysteine (Acetylcysteine 20%) 3 ml IH RQ4 [facility] Last Admin: 09/24/18 14:20 Dose: 3 ml Albuterol/Ipratropium (Duoneb 3 Mg/0.5 Mg (3 Ml) Ud) 3 ml INH RQ6 [facility] Last Admin: 09/24/18 14:20 Dose: 3 ml Aspirin (Ecotrin) 81 mg PO DAILY [facility] Last Admin: 09/24/18 09:47 Dose: 81 mg Clopidogrel Bisulfate (Plavix) 75 mg PO DAILY [facility] Last Admin: 09/24/18 09:47 Dose: 75 mg Docusate Sodium (Colace) 100 mg PO BID [facility] Last Admin: 09/24/18 09:47 Dose: 100 mg Fluticasone/Vilanterol (Breo Ellipta 200-25 Mcg Inh) 1 puff INH RQD [facility] Last Admin: 09/24/18 09:00 Dose: Not Given Heparin Sodium (Porcine) (Heparin) 5,000 units SC Q12 [facility] Last Admin: 09/24/18 09:46 Dose: 5,000 units Azithromycin 500 mg/ Sodium (Chloride) 250 mls @ 250 mls/hr IVPB DAILY [facility]; Protocol Last Admin: 09/24/18 09:48 Dose: 250 mls/hr Ceftriaxone Sodium 1 gm/ (Sodium Chloride) 100 mls @ 100 mls/hr IVPB DAILY [facility]; Protocol Last Admin: 09/24/18 09:47 Dose: 100 mls/hr Lactulose (Enulose) 20 gm PO BID [facility] Last Admin: 09/24/18 09:46 Dose: 20 gm Methylprednisolone (Solu-Medrol) 40 mg IVP Q6 [facility] Last Admin: 09/24/18 12:54 Dose: 40 mg Metoprolol Tartrate (Lopressor) 12.5 mg PO Q12 [facility] Last Admin: 09/24/18 09:47 Dose: 12.5 mg Multivitamins (Hexavitamin) 1 tab PO DAILY [facility] Last Admin: 09/24/18 09:47 Dose: 1 tab Pantoprazole Sodium (Protonix Ec Tab) 40 mg PO 0630 [facility] Last Admin: 09/24/18 05:48 Dose: 40 mg Rosuvastatin Calcium (Crestor) 40 mg PO HS [facility] Last Admin: 09/23/18 22:30 Dose: 40 mg - Labs Labs: 09/24/18 10:11 09/24/18 10:11 - Constitutional Appears: Well, Non-toxic - Head Exam Head Exam: ATRAUMATIC, NORMAL INSPECTION - Eye Exam Eye Exam: EOMI, Normal appearance - Neck Exam Neck Exam: Normal Inspection - Respiratory Exam Respiratory Exam: Clear to Ausculation Bilateral, NORMAL BREATHING PATTERN - Cardiovascular Exam Cardiovascular Exam: REGULAR RHYTHM - GI/Abdominal Exam GI & Abdominal Exam: Soft, Normal Bowel Sounds - Extremities Exam Extremities Exam: Normal Inspection. absent: Joint Swelling, Pedal Edema, Tenderness Additional comments: peripheral pulses strong - Neurological Exam Neurological Exam: Alert, Awake, Oriented x3 - Psychiatric Exam Psychiatric exam: Normal Affect, Normal Mood - Skin Skin Exam: Dry, Intact, Normal Color, Warm Assessment and Plan - Assessment and Plan (Free Text) Assessment: 62 y/o male with PMHx of COPD, CAD s/p CABG 2015, CHF presented on 09/21 with SOB worsening x 3 weeks. Now patient on medicine floor stable. COPD Exacerbation -patient this AM was on vapotherm, now on 4L NC comfortably; will continue to wean and follow Dr. Casey forrester -fluticasone/vilanterol 1 puff daily -methylprednisolone 40 mg IV q6 -acetylcysteine 2ml q4 -duonebs -continue encouraging the abstinence from smoking; he is an ex-smoker Interstitial Lung Disease -per PMD Dr. Clark ILD is likely 2/2 former amiodarone use -Dr. Peña, pulm, recommended amiodarone to be d/fariba - it has been. Continue to avoid amiodarone -pt high risk broncoscopy because of hypoxemia -continue to follow Dr. Peña recs PNA -patient has been afebrile, however still with leukocytosis at 12.6 -azith 500 mg IV qd- started 09/22 -ceftriaxone 1g IV qd- started 09/22 -consider probiotic PO supplement CHF -admitting BNP 09/21: 4790 -patient not on diuretics, no edema. Will continue to monitor -Dr. Martinez following on this admission CAD s/p CABG 2015 -metoprolol tartrate 12.5 q12h -crestor 40 mg qhs -plavix 75 qd Hyperglycemia -patient not with known diabetes; but BG 105 -> 370 from 09/21 to now; consider tapering methylprednisolone once COPD exacerbation resolving DVT ppx: heparin 500u SQ Q12 GI ppx: pantoprazole 40 mg PO case d/w Dr. Alexandre Moreno PGY-1
--- NOTE | 2018-09-24 17:31 | CP.PCM.PN ---
Subjective - Date & Time of Evaluation Date of Evaluation: 09/24/18 Time of Evaluation: 09:20 - Subjective Subjective: Patient seen and examined at bedside, lying down comfortably. Afebrile and in no acute distress. Cough and SOB are improving; denies chest pain.? Amiodarone discontinued; continue IV steroids for amiodarone toxicity. Off of high-flow oxygen; monitor O2 saturation on 4L NC. Objective - Vital Signs/Intake and Output Vital Signs (last 24 hours): Temp Pulse Resp BP Pulse Ox 97.2 F L 82 69 H 129/66 20 L 09/24/18 16:57 09/24/18 12:49 09/24/18 16:57 09/24/18 16:57 09/24/18 16:57 Intake and Output: 09/24/18 09/24/18 06:59 18:59 Output Total 350 Balance -350 - Medications Medications: Current Medications Acetylcysteine (Acetylcysteine 20%) 3 ml IH RQ4 [facility] Last Admin: 09/24/18 15:36 Dose: 3 ml Albuterol/Ipratropium (Duoneb 3 Mg/0.5 Mg (3 Ml) Ud) 3 ml INH RQ6 [facility] Last Admin: 09/24/18 14:20 Dose: 3 ml Aspirin (Ecotrin) 81 mg PO DAILY [facility] Last Admin: 09/24/18 09:47 Dose: 81 mg Clopidogrel Bisulfate (Plavix) 75 mg PO DAILY [facility] Last Admin: 09/24/18 09:47 Dose: 75 mg Docusate Sodium (Colace) 100 mg PO BID [facility] Last Admin: 09/24/18 17:18 Dose: Not Given Fluticasone/Vilanterol (Breo Ellipta 200-25 Mcg Inh) 1 puff INH RQD [facility] Last Admin: 09/24/18 09:00 Dose: Not Given Heparin Sodium (Porcine) (Heparin) 5,000 units SC Q12 [facility] Last Admin: 09/24/18 09:46 Dose: 5,000 units Azithromycin 500 mg/ Sodium (Chloride) 250 mls @ 250 mls/hr IVPB DAILY [facility]; Protocol Last Admin: 09/24/18 09:48 Dose: 250 mls/hr Ceftriaxone Sodium 1 gm/ (Sodium Chloride) 100 mls @ 100 mls/hr IVPB DAILY [facility]; Protocol Last Admin: 09/24/18 09:47 Dose: 100 mls/hr Lactulose (Enulose) 20 gm PO BID [facility] Last Admin: 09/24/18 17:18 Dose: Not Given Methylprednisolone (Solu-Medrol) 40 mg IVP Q6 [facility] Last Admin: 09/24/18 17:28 Dose: 40 mg Metoprolol Tartrate (Lopressor) 12.5 mg PO Q12 [facility] Last Admin: 09/24/18 09:47 Dose: 12.5 mg Multivitamins (Hexavitamin) 1 tab PO DAILY [facility] Last Admin: 09/24/18 09:47 Dose: 1 tab Pantoprazole Sodium (Protonix Ec Tab) 40 mg PO 0630 [facility] Last Admin: 09/24/18 05:48 Dose: 40 mg Rosuvastatin Calcium (Crestor) 40 mg PO HS [facility] Last Admin: 09/23/18 22:30 Dose: 40 mg - Labs Labs: 09/24/18 10:11 09/24/18 10:11 Assessment and Plan (1) Acute respiratory failure with hypoxia Status: Acute (2) Chr obstructive pulmonary disease w/ acute lower respiratory infxn Status: Acute (3) Chronic congestive heart failure Status: Acute
--- NOTE | 2018-09-24 19:26 | PN ---
DATE: 09/24/2018 SUBJECTIVE: The patient is experiencing mild shortness of breath and cough. No hemoptysis, no retrosternal chest pain, and no dizziness. PHYSICAL EXAMINATION VITAL SIGNS: Blood pressure 118/66, heart rate 62, temperature 97.8, and respirations 18. HEENT: Normocephalic. CHEST: Bilateral coarse and dry crepitation. HEART: S1 and S2 regular. EXTREMITIES: No edema. LABORATORY DATA: SMA-7: Sodium 140, potassium 5.4, chloride 108, CO2 of 20, glucose 370, BUN 44, and creatinine 1.3. Hemoglobin and hematocrit 12.3 and 37.9, white count 12.6, and platelet count 143,000. ASSESSMENT: 1. Coronary artery disease, status post coronary artery bypass surgery. 2. History of cerebrovascular accident with residual right hemiparesis. 3. Pulmonary fibrosis. 4. Worsening prerenal azotemia. RECOMMENDATIONS: I did review the echocardiographic study report, which revealed ejection fraction at the range of 45-50% with mild hypokinesis of the anteroseptal wall consistent with CAD and [id number] tricuspid insufficiency with mild aortic insufficiency, right ventricular systolic pressure, which measured at 34 mmHg. Continue current Mucomyst inhalation, continue IV Zithromax and IV Rocephin, and continue Crestor 40 mg once a day, aspirin 81 mg once a day, subcutaneous heparin 5000 units every 12 hours, Plavix 75 mg once a day, Solu-Medrol 40 mg intravenously every 6 hours. Consider IV fluid if labs are consistent with worsening of prerenal azotemia. Jose Daniel Martinez MD
[2018-09-25] MEDS: Acetylcysteine 20% Inhal Soln (4ml) IH SCH ×6 (00:24→19:38)
[2018-09-25] MEDS: Albuterol-Ipratrop 3 mg / 0.5 (3 ml) UD INH SCH ×5 (03:06→19:38)
[2018-09-25] MEDS: Pantoprazole 40 mg EC Tab PO SCH (05:53)
[2018-09-25] MEDS: MethylPREDNISolone 40 mg Vial IVP SCH ×4 (05:53→22:30)
--- NOTE | 2018-09-25 06:27 | CP.PCM.PN ---
Objective - Vital Signs/Intake and Output Vital Signs (last 24 hours): Temp Pulse Resp BP Pulse Ox 97.7 F 70 20 129/78 95 09/25/18 00:00 09/25/18 01:00 09/25/18 00:00 09/25/18 00:00 09/25/18 00:00 - Medications Medications: Current Medications Acetylcysteine (Acetylcysteine 20%) 3 ml IH RQ4 [facility] Last Admin: 09/25/18 03:06 Dose: 3 ml Albuterol/Ipratropium (Duoneb 3 Mg/0.5 Mg (3 Ml) Ud) 3 ml INH RQ6 [facility] Last Admin: 09/25/18 03:06 Dose: 3 ml Aspirin (Ecotrin) 81 mg PO DAILY [facility] Last Admin: 09/24/18 09:47 Dose: 81 mg Clopidogrel Bisulfate (Plavix) 75 mg PO DAILY [facility] Last Admin: 09/24/18 09:47 Dose: 75 mg Docusate Sodium (Colace) 100 mg PO BID [facility] Last Admin: 09/24/18 17:18 Dose: Not Given Fluticasone/Vilanterol (Breo Ellipta 200-25 Mcg Inh) 1 puff INH RQD [facility] Last Admin: 09/24/18 09:00 Dose: Not Given Heparin Sodium (Porcine) (Heparin) 5,000 units SC Q12 [facility] Last Admin: 09/24/18 21:31 Dose: 5,000 units Azithromycin 500 mg/ Sodium (Chloride) 250 mls @ 250 mls/hr IVPB DAILY [facility]; Protocol Last Admin: 09/24/18 09:48 Dose: 250 mls/hr Ceftriaxone Sodium 1 gm/ (Sodium Chloride) 100 mls @ 100 mls/hr IVPB DAILY [facility]; Protocol Last Admin: 09/24/18 09:47 Dose: 100 mls/hr Lactulose (Enulose) 20 gm PO BID [facility] Last Admin: 09/24/18 17:18 Dose: Not Given Methylprednisolone (Solu-Medrol) 40 mg IVP Q6 [facility] Last Admin: 09/25/18 05:53 Dose: 40 mg Metoprolol Tartrate (Lopressor) 12.5 mg PO Q12 [facility] Last Admin: 09/24/18 21:33 Dose: 12.5 mg Multivitamins (Hexavitamin) 1 tab PO DAILY [facility] Last Admin: 09/24/18 09:47 Dose: 1 tab Pantoprazole Sodium (Protonix Ec Tab) 40 mg PO 0630 [facility] Last Admin: 09/25/18 05:53 Dose: 40 mg Rosuvastatin Calcium (Crestor) 40 mg PO HS [facility] Last Admin: 09/24/18 21:31 Dose: 40 mg - Labs Labs: 09/24/18 10:11 09/24/18 10:11
[2018-09-25 08:55] LABS: BASO % 0.1 % (0.0-2.0); HEMOGLOBIN 11.8 g/dL (12.0-18.0); LYMPH # 0.4 K/uL (1.0-4.3); LYMPH % 3.2 % (20.0-40.0); MEAN CELL VOLUME 87.8 fL (80.0-94.0); MEAN CORPUSCULAR HEMOGLOBIN 28.8 pg (27.0-31.0); MEAN CORPUSCULAR HGB CONC 32.7 g/dL (33.0-37.0); MONO # 0.3 K/uL (0.0-0.8); MONO % 2.2 % (0.0-10.0); NEUT # 11.4 K/uL (1.8-7.0); NEUT % 94.5 % (50.0-75.0); PLATELET COUNT 314 K/uL (130-400); RBC 4.09 Mil/uL (4.40-5.90); RED CELL DISTRIBUTION WIDTH 17.9 % (11.5-14.5); WHITE BLOOD COUNT 12.1 K/uL (4.8-10.8)
[2018-09-25 09:07] LABS: ALB/GLOB RATIO 0.8 (1.0-2.1); ALT/SGPT 105 U/L (21-72); AST/SGOT 47 U/L (17-59); BLOOD UREA NITROGEN 38 mg/dL (9-20); CALCIUM 8.3 mg/dl (8.6-10.4); GFR NON-AFRICAN AMERICAN > 60
[2018-09-25 09:33] LABS: LYMPHOCYTE 2 % (20-40); MONOCYTE 4 % (0-10); NEUTROPHIL 94 % (50-75); PLATELET ESTIMATE NORMAL (NORMAL); TOTAL CELLS COUNTED 100
[2018-09-25 09:34] LABS: ANISOCYTOSIS SLIGHT; HYPOCHROMIC SLIGHT; OVALOCYTES SLIGHT; POIKILOCYTOSIS SLIGHT
[2018-09-25] MEDS: Multiple Vitamins Tab PO SCH (10:10)
[2018-09-25] MEDS: Azithromycin 500 MG in Sodium Chloride 0.9% 250 ML IVPB SCH (10:13)
[2018-09-25] MEDS: Fluticasone-Vilanterol 200/25mcg Diskus INH SCH (13:50)
--- NOTE | 2018-09-25 14:55 | CP.PCM.PN ---
Subjective - Date & Time of Evaluation Date of Evaluation: 09/25/18 Time of Evaluation: 14:00 - Subjective Subjective: Jeremycarlos enrique Gaganjorge PGY1 Progress Note for Dr. Schroeder Pt was examined at bedside. He reported improvement of his shortness of breath. He reported diarrhea this morning, which was thin and brown in color. He denied blood in the stool. He denied chest pain, dizziness, cough, abdominal pain, nausea, vomiting, dysuria. Objective - Vital Signs/Intake and Output Vital Signs (last 24 hours): Temp Pulse Resp BP Pulse Ox 98.1 F 64 20 121/64 92 L 09/25/18 07:53 09/25/18 07:53 09/25/18 07:53 09/25/18 07:53 09/25/18 07:53 - Medications Medications: Current Medications Acetylcysteine (Acetylcysteine 20%) 3 ml IH RQ4 [facility] Last Admin: 09/25/18 13:50 Dose: 3 ml Albuterol/Ipratropium (Duoneb 3 Mg/0.5 Mg (3 Ml) Ud) 3 ml INH Q6H [facility] Aspirin (Ecotrin) 81 mg PO DAILY [facility] Last Admin: 09/25/18 10:10 Dose: 81 mg Clopidogrel Bisulfate (Plavix) 75 mg PO DAILY [facility] Last Admin: 09/25/18 10:10 Dose: 75 mg Docusate Sodium (Colace) 100 mg PO BID [facility] Last Admin: 09/25/18 10:10 Dose: 100 mg Fluticasone/Vilanterol (Breo Ellipta 200-25 Mcg Inh) 1 puff INH RQD [facility] Last Admin: 09/25/18 13:50 Dose: Not Given Heparin Sodium (Porcine) (Heparin) 5,000 units SC Q12 [facility] Last Admin: 09/25/18 10:11 Dose: 5,000 units Azithromycin 500 mg/ Sodium (Chloride) 250 mls @ 250 mls/hr IVPB DAILY [facility]; Protocol Last Admin: 09/25/18 10:13 Dose: 250 mls/hr Ceftriaxone Sodium 1 gm/ (Sodium Chloride) 100 mls @ 100 mls/hr IVPB DAILY [facility]; Protocol Last Admin: 09/25/18 10:13 Dose: 100 mls/hr Lactulose (Enulose) 20 gm PO BID [facility] Last Admin: 09/25/18 10:13 Dose: Not Given Methylprednisolone (Solu-Medrol) 40 mg IVP Q8H [facility] Metoprolol Tartrate (Lopressor) 12.5 mg PO Q12 [facility] Last Admin: 09/25/18 10:11 Dose: 12.5 mg Multivitamins (Hexavitamin) 1 tab PO DAILY [facility] Last Admin: 09/25/18 10:10 Dose: 1 tab Pantoprazole Sodium (Protonix Ec Tab) 40 mg PO 0630 [facility] Last Admin: 09/25/18 05:53 Dose: 40 mg Rosuvastatin Calcium (Crestor) 40 mg PO HS [facility] Last Admin: 09/24/18 21:31 Dose: 40 mg - Labs Labs: 09/25/18 08:00 09/25/18 08:00 - Constitutional Appears: Well, No Acute Distress - Head Exam Head Exam: ATRAUMATIC, NORMOCEPHALIC - Eye Exam Eye Exam: EOMI, Normal appearance - ENT Exam ENT Exam: Mucous Membranes Moist - Respiratory Exam Respiratory Exam: Rhonchi, NORMAL BREATHING PATTERN. absent: Rales, Wheezes, Respiratory Distress, Stridor Additional comments: rhonchi on the R - Cardiovascular Exam Cardiovascular Exam: REGULAR RHYTHM, +S1, +S2. absent: Gallop, Rubs, Murmur - GI/Abdominal Exam GI & Abdominal Exam: Soft, Normal Bowel Sounds. absent: Distended, Firm, Tenderness - Extremities Exam Extremities Exam: absent: Pedal Edema - Neurological Exam Neurological Exam: Alert, Awake, Oriented x3 - Psychiatric Exam Psychiatric exam: Normal Affect, Normal Mood - Skin Skin Exam: Normal Color Assessment and Plan - Assessment and Plan (Free Text) Assessment: 62 y/o male with PMHx of COPD, CAD s/p CABG 2016, CHF presented on 09/21 with SOB worsening x 3 weeks, admitted for COPD exacerbation. Plan: COPD Exacerbation - CT chest 09/21: diffuse reticular opacities, interstitial thickening - pt on 4L NC, as per pulm recs. tolerating well. - fluticasone/vilanterol 1 puff daily - methylprednisolone 40 mg IV q8h - acetylcysteine 2ml q4 - duonebs - f/u rpt CXR in AM - f/u rpt ESR Interstitial Lung Disease - likely 2/2 former amiodarone use - hold amiodarone - pt high risk broncoscopy because of hypoxemia - Pulm consulted, Dr. Casey forrester appreciated PNA - WBC 12.1 - afebrile - azithromycin 500 mg IV qd (09/22) - ceftriaxone 1g IV qd (09/22) - lacutulose 20mg PO BID [facility] - BNP 09/21: 4790 - I/O: -650ml - ECHO: EF 40-45% - Cardio consulted, Dr. Michelle forrester appreciated CAD s/p CABG 2015 - metoprolol tartrate 12.5 q12h - crestor 40 mg qhs - plavix 75 qd Diarrhea - pt reports diarrhea this morning, but no further episodes - pt on antibiotic tx - f/u stool Cx, C. diff toxins Transaminitis - AST 47, ALT 105, ALK 307 - likely secondary to amiodarone and/ or statin Hyperglycemia - BG 243 today - no h/o DM - likely secondary to steroids - monitor as steroid is tapered PPX DVT: heparin 500u SQ Q12 GI: pantoprazole 40 mg PO Pt seen with and case reviewed with Dr. Schroeder
[2018-09-26] MEDS: Albuterol-Ipratrop 3 mg / 0.5 (3 ml) UD INH SCH ×4 (00:35→20:34)
[2018-09-26] MEDS: Acetylcysteine 20% Inhal Soln (4ml) IH SCH ×6 (00:35→20:34)
--- NOTE | 2018-09-26 01:44 | PN ---
DATE: 09/25/2018 SUBJECTIVE: The patient's shortness of breath and cough have improved. He denies retrosternal chest pain. PHYSICAL EXAMINATION: VITAL SIGNS: Blood pressure 125/71, heart rate 70, temperature 97.4, respiration 20. HEENT: Normocephalic. CHEST: Bilateral rhonchi. HEART: S1 and S2 are regular. EXTREMITIES: No edema. LABORATORY DATA: Hemoglobin and hematocrit 11.8 and 36, white count 12.1, platelet count 314,000. Today's SMA-7: Sodium 140, potassium 4.9, chloride 108, CO2 of 24, glucose 143, BUN 38 and creatinine 1.2. ASSESSMENT: 1. Coronary artery disease, status post coronary artery bypass surgery. 2. Interstitial lung disease. 3. History of cerebrovascular accident with residual right hemiparesis. 4. Improving prerenal azotemia. 5. Uncontrolled diabetes mellitus. RECOMMENDATIONS: Continue current IV Zithromax and IV Rocephin. Continue Crestor 40 mg once a day, aspirin 81 mg once a day, Lopressor 12.5 mg twice a day, Solu-Medrol 40 mg intravenously every 8 hours. Jose Daniel Martinez MD
[2018-09-26] MEDS: Pantoprazole 40 mg EC Tab PO SCH (06:33)
[2018-09-26] MEDS: MethylPREDNISolone 40 mg Vial IVP SCH ×3 (06:33→23:55)
[2018-09-26] MEDS: Fluticasone-Vilanterol 200/25mcg Diskus INH SCH ×2 (08:00→08:05)
[2018-09-26 08:17] LABS: BASO % 0.2 % (0.0-2.0); HEMOGLOBIN 11.6 g/dL (12.0-18.0); LYMPH # 0.4 K/uL (1.0-4.3); LYMPH % 2.9 % (20.0-40.0); MEAN CELL VOLUME 88.5 fL (80.0-94.0); MEAN CORPUSCULAR HEMOGLOBIN 29.1 pg (27.0-31.0); MEAN CORPUSCULAR HGB CONC 32.8 g/dL (33.0-37.0); MEAN PLATELET VOLUME 10.2 fL (7.2-11.7); MONO # 0.3 K/uL (0.0-0.8); MONO % 2.6 % (0.0-10.0); NEUT # 12.8 K/uL (1.8-7.0); NEUT % 94.3 % (50.0-75.0); PLATELET COUNT 297 K/uL (130-400); RED CELL DISTRIBUTION WIDTH 17.4 % (11.5-14.5); WHITE BLOOD COUNT 13.6 K/uL (4.8-10.8)
[2018-09-26 08:24] LABS: ALB/GLOB RATIO 0.8 (1.0-2.1); ALBUMIN 3.1 g/dL (3.5-5.0); ALT/SGPT 274 U/L (21-72); AST/SGOT 117 U/L (17-59); BLOOD UREA NITROGEN 37 mg/dL (9-20); CALCIUM 8.5 mg/dl (8.6-10.4); GFR NON-AFRICAN AMERICAN > 60
--- NOTE | 2018-09-26 09:23 | CP.PCM.PN ---
Subjective - Date & Time of Evaluation Date of Evaluation: 09/26/18 - Subjective Subjective: Patient seen and examined at bedside, resting comfortably. Afebrile and in no acute distress. Patient on 4L O2 NC and denies any shortness of breath, but admits to being short of breath when he removes the cannula or walks. States his cough, and SOB symptoms are improving. Objective - Vital Signs/Intake and Output Vital Signs (last 24 hours): Temp Pulse Resp BP Pulse Ox 97.7 F 62 20 113/64 98 09/26/18 08:46 09/26/18 08:46 09/26/18 08:46 09/26/18 08:46 09/26/18 08:46 Intake and Output: 09/26/18 09/26/18 06:59 18:59 Intake Total 240 Output Total 400 Balance -160 - Medications Medications: Current Medications Acetylcysteine (Acetylcysteine 20%) 3 ml IH RQ4 [facility] Last Admin: 09/26/18 04:00 Dose: Not Given Albuterol/Ipratropium (Duoneb 3 Mg/0.5 Mg (3 Ml) Ud) 3 ml INH RQ6 [facility] Last Admin: 09/26/18 00:35 Dose: Not Given Aspirin (Ecotrin) 81 mg PO DAILY [facility] Last Admin: 09/25/18 10:10 Dose: 81 mg Clopidogrel Bisulfate (Plavix) 75 mg PO DAILY [facility] Last Admin: 09/25/18 10:10 Dose: 75 mg Docusate Sodium (Colace) 100 mg PO BID [facility] Last Admin: 09/25/18 17:23 Dose: Not Given Fluticasone/Vilanterol (Breo Ellipta 200-25 Mcg Inh) 1 puff INH RQD [facility] Last Admin: 09/25/18 13:50 Dose: Not Given Heparin Sodium (Porcine) (Heparin) 5,000 units SC Q12 [facility] Last Admin: 09/25/18 22:30 Dose: 5,000 units Azithromycin 500 mg/ Sodium (Chloride) 250 mls @ 250 mls/hr IVPB DAILY [facility]; Protocol Last Admin: 09/25/18 10:13 Dose: 250 mls/hr Ceftriaxone Sodium 1 gm/ (Sodium Chloride) 100 mls @ 100 mls/hr IVPB DAILY [facility]; Protocol Last Admin: 09/25/18 10:13 Dose: 100 mls/hr Lactulose (Enulose) 20 gm PO BID [facility] Last Admin: 09/25/18 17:23 Dose: Not Given Methylprednisolone (Solu-Medrol) 40 mg IVP Q8H [facility] Last Admin: 09/26/18 06:33 Dose: 40 mg Metoprolol Tartrate (Lopressor) 12.5 mg PO Q12 [facility] Last Admin: 09/25/18 22:30 Dose: 12.5 mg Multivitamins (Hexavitamin) 1 tab PO DAILY [facility] Last Admin: 09/25/18 10:10 Dose: 1 tab Pantoprazole Sodium (Protonix Ec Tab) 40 mg PO 0630 [facility] Last Admin: 09/26/18 06:33 Dose: 40 mg Rosuvastatin Calcium (Crestor) 40 mg PO HS [facility] Last Admin: 09/25/18 22:30 Dose: 40 mg - Labs Labs: 09/26/18 08:03 09/26/18 08:03 - Head Exam Head Exam: ATRAUMATIC, NORMOCEPHALIC - ENT Exam ENT Exam: Mucous Membranes Moist - Neck Exam Neck Exam: Normal Inspection - Respiratory Exam Respiratory Exam: Decreased Breath Sounds, Rhonchi, Wheezes - Cardiovascular Exam Cardiovascular Exam: REGULAR RHYTHM - GI/Abdominal Exam GI & Abdominal Exam: Soft, Normal Bowel Sounds Assessment and Plan (1) Chr obstructive pulmonary disease w/ acute lower respiratory infxn Assessment & Plan: continue nebulizer treatment and steroids Followup chest x-ray Home oxygen Antibiotics Status: Acute (2) Chronic congestive heart failure Status: Acute
[2018-09-26] MEDS: Multiple Vitamins Tab PO SCH (10:28)
[2018-09-26] MEDS: Azithromycin 500 MG in Sodium Chloride 0.9% 250 ML IVPB SCH (10:30)
[2018-09-26 10:40] LABS: ANISOCYTOSIS SLIGHT; BANDS 1 % (0-2); LARGE PLATELETS PRESENT; LYMPHOCYTE 4 % (20-40); MONOCYTE 2 % (0-10); NEUTROPHIL 92 % (50-75); OVALOCYTES SLIGHT; PLATELET ESTIMATE NORMAL (NORMAL); REACTIVE LYMPHOCYTES 1 % (0-0); TOTAL CELLS COUNTED 100
[2018-09-26 10:41] LABS: HYPOCHROMIC SLIGHT
[2018-09-26 10:57] LABS: ERYTHROCYTE SEDIMENTATION RATE 16 mm/hr (0-15)
--- NOTE | 2018-09-26 15:17 | RAD ---
Date of service: 09/26/2018 HISTORY: shortness of breath COMPARISON: No prior. FINDINGS: LUNGS: Diffuse bilateral reticular nodular interstitial infiltrates. Changes appear slightly more coalescent in the right lung apex, right mid to upper lung field and both lung bases. PLEURA: No significant pleural effusion identified, no pneumothorax apparent. CARDIOVASCULAR: Mild aortic atherosclerotic calcification present. Heart appears borderline/mildly enlarged. No pulmonary vascular congestion. OSSEOUS STRUCTURES: No significant abnormalities. VISUALIZED UPPER ABDOMEN: Normal. OTHER FINDINGS: None. IMPRESSION: Diffuse bilateral reticular nodular interstitial infiltrates. Changes appear slightly more coalescent in the right lung apex, right mid to upper lung field and both lung bases.
--- NOTE | 2018-09-26 17:10 | PN ---
DATE: 09/26/2018 SUBJECTIVE: The patient is seen today on 09/26/2018. He is on oxygen by nasal cannula and he is tolerating that well; less shortness of breath. OBJECTIVE: VITAL SIGNS: Blood pressure 113/64, temperature 97.7, respiratory rate 20 and pulse 62. HEENT: Pupils equal, reactive to light. Normal-appearing mucosa of the conjunctivae, oropharynx and nasal membrane mucosa. NECK: Supple. No JVD. No carotid bruit. No lymph node. No thyromegaly. CHEST AND LUNGS: Decreased rhonchi bilaterally. No rales. CARDIOVASCULAR: PMI not localized. S1, S2. No additional sounds. ABDOMEN: Normoactive bowel sounds. No tenderness. No organomegaly. No masses. EXTREMITIES: No cyanosis, no clubbing, no edema. DISTRICT MANAGER IN [employer]ING: Alert, awake, oriented x2 and the patient has right-sided weakness. IMAGING STUDIES: Echocardiogram showed increased right ventricular systolic pressure to 30-40 mmHg with moderate to severe tricuspid regurgitation. ASSESSMENT: 1. Exacerbation of chronic obstructive pulmonary disease. 2. Cerebrovascular accident with right-sided weakness. 3. Hypertension. 4. Type 2 diabetes mellitus. 5. Elevated liver enzymes could be secondary to antibiotics versus statin. PLAN: We will discontinue antibiotics and hold statin for now. Continue current medications, bronchodilators and follow recommendations of spanish instructor regarding the home oxygen. We will also taper down steroids. Violeta Clark MD
--- NOTE | 2018-09-26 20:54 | PN ---
DATE: 09/26/2018 SUBJECTIVE: The patient denies abdominal pain or chest pain. He is experiencing productive cough. OBJECTIVE: VITAL SIGNS: Blood pressure 115/64, heart rate 62, temperature 97.7, respirations 20. HEENT: Normocephalic. CHEST: Bilateral coarse dry crepitations. HEART: S1, S2 regular. ABDOMEN: Soft. EXTREMITIES: No edema. LABORATORY DATA: Today's hemoglobin and hematocrit 11.6 and 35.4. White count 16.6, platelet count 297,000. Today's SMA-7 is within normal limits except for BUN of 37 and glucose 256. AST and ALT are 117 and 274 respectively. Significant elevation compared to yesterday. Alkaline phosphatase is elevated at 374. ASSESSMENT: 1. Coronary artery disease, status post coronary artery bypass surgery. 2. Interstitial lung disease. Today's chest x-ray revealed diffuse bilateral reticular nodular interstitial infiltrate, more coalescent in the right upper lung apex, right mid to upper lung alfonso, and both lung bases. 3. Worsening liver enzyme elevation. 4. Asystole with right hemiparesis. 5. Uncontrolled diabetes mellitus. 6. Improving prerenal azotemia. CONDITIONS: Case was discussed with [employer]ER. Crestor was discontinued. Because of worsening liver enzymes, continue albuterol inhaler, aspirin 81 mg once a day, subcutaneous heparin 5000 units every 12 hours, Lopressor 12.5 mg once a day, Plavix 75 mg once a day, Solu-Medrol 20 mg intravenously every 12 hours. Jose Daniel Martinez MD
[2018-09-27] MEDS: Acetylcysteine 20% Inhal Soln (4ml) IH SCH ×5 (00:15→19:31)
[2018-09-27] MEDS: Pantoprazole 40 mg EC Tab PO SCH (06:35)
[2018-09-27] MEDS: Albuterol-Ipratrop 3 mg / 0.5 (3 ml) UD INH SCH ×3 (07:59→19:31)
[2018-09-27] MEDS: Fluticasone-Vilanterol 200/25mcg Diskus INH SCH (07:59)
[2018-09-27 09:03] LABS: BASO % 0.2 % (0.0-2.0); LYMPH # 0.5 K/uL (1.0-4.3); LYMPH % 3.5 % (20.0-40.0); MEAN CELL VOLUME 88.3 fL (80.0-94.0); MEAN CORPUSCULAR HGB CONC 32.9 g/dL (33.0-37.0); MEAN PLATELET VOLUME 10.1 fL (7.2-11.7); MONO # 0.4 K/uL (0.0-0.8); NEUT # 12.5 K/uL (1.8-7.0); NEUT % 93.3 % (50.0-75.0); NRBC % 0.1 % (0.0-2.0); PLATELET COUNT 289 K/uL (130-400); RBC 4.14 Mil/uL (4.40-5.90); RED CELL DISTRIBUTION WIDTH 17.8 % (11.5-14.5); WHITE BLOOD COUNT 13.4 K/uL (4.8-10.8)
[2018-09-27 09:22] LABS: ALB/GLOB RATIO 0.9 (1.0-2.1); ALT/SGPT 198 U/L (21-72); AST/SGOT 46 U/L (17-59); BILIRUBIN,DIRECT 1.1 mg/dL (0.0-0.4); BLOOD UREA NITROGEN 32 mg/dL (9-20); CALCIUM 8.5 mg/dl (8.6-10.4); GFR NON-AFRICAN AMERICAN > 60
[2018-09-27] MEDS: Multiple Vitamins Tab PO SCH (10:20)
[2018-09-27 11:17] LABS: ANISOCYTOSIS SLIGHT; LYMPHOCYTE 4 % (20-40); MONOCYTE 2 % (0-10); NEUTROPHIL 94 % (50-75); PLATELET ESTIMATE NORMAL (NORMAL); TOTAL CELLS COUNTED 100
[2018-09-27 11:18] LABS: LARGE PLATELETS PRESENT
[2018-09-27 11:19] LABS: HYPOCHROMIC SLIGHT; POLYCHROMIC SLIGHT; TOXIC GRANULATION PRESENT
--- NOTE | 2018-09-27 20:51 | PN ---
DATE: 09/27/2018 SUBJECTIVE: The patient is experiencing dry cough. No retrosternal chest pain. PHYSICAL EXAMINATION VITAL SIGNS: Blood pressure 108/61, heart rate 76, temperature 97.2, respirations 20. HEENT: Normocephalic. CHEST: Bilateral dry crepitations. HEART: S1 and S2 regular. EXTREMITIES: No edema. LABORATORY DATA: Today's hemoglobin and hematocrit are 12 and 36.6, white count 16.4, platelet count 289,000. SMA-7 is within normal limits except glucose of 376 and BUN of 32. Liver enzymes elevation improved today. ASSESSMENT: 1. Coronary artery disease, status post coronary artery bypass surgery earlier this year. 2. Interstitial lung disease. 3. Elevated liver enzymes. 4. History of cerebrovascular accident with residual right hemiparesis. 5. Uncontrolled diabetes mellitus. RECOMMENDATIONS: Discontinue telemetry. Continue aspirin 81 mg once a day, Lopressor 12.5 mg once a day, Plavix 75 mg once a day, Solu-Medrol 20 mg intravenously every 12 hours. Jose Daniel Martinez MD
[2018-09-27] MEDS: MethylPREDNISolone 40 mg Vial IVP SCH (23:53)
[2018-09-28] MEDS: Acetylcysteine 20% Inhal Soln (4ml) IH SCH ×6 (00:12→20:25)
[2018-09-28] MEDS: Albuterol-Ipratrop 3 mg / 0.5 (3 ml) UD INH SCH ×4 (01:29→20:25)
[2018-09-28] MEDS: Pantoprazole 40 mg EC Tab PO SCH (06:31)
[2018-09-28 07:13] LABS: ALB/GLOB RATIO 0.9 (1.0-2.1); ALBUMIN 2.9 g/dL (3.5-5.0); ALT/SGPT 167 U/L (21-72); AST/SGOT 39 U/L (17-59); BLOOD UREA NITROGEN 28 mg/dL (9-20); CALCIUM 8.1 mg/dl (8.6-10.4); GFR NON-AFRICAN AMERICAN > 60
[2018-09-28 07:21] LABS: BASO % 0.1 % (0.0-2.0); EOS % 0.2 % (0.0-4.0); HEMOGLOBIN 12.2 g/dL (12.0-18.0); LYMPH # 0.4 K/uL (1.0-4.3); LYMPH % 4.2 % (20.0-40.0); MEAN CELL VOLUME 87.9 fL (80.0-94.0); MEAN CORPUSCULAR HEMOGLOBIN 28.8 pg (27.0-31.0); MEAN CORPUSCULAR HGB CONC 32.8 g/dL (33.0-37.0); MEAN PLATELET VOLUME 10.2 fL (7.2-11.7); MONO # 0.2 K/uL (0.0-0.8); MONO % 2.1 % (0.0-10.0); NEUT # 8.8 K/uL (1.8-7.0); NEUT % 93.4 % (50.0-75.0); NRBC % 0.1 % (0.0-2.0); PLATELET COUNT 261 K/uL (130-400); RBC 4.23 Mil/uL (4.40-5.90); RED CELL DISTRIBUTION WIDTH 18.1 % (11.5-14.5); WHITE BLOOD COUNT 9.5 K/uL (4.8-10.8)
--- NOTE | 2018-09-28 08:08 | CP.PCM.PN ---
Subjective - Date & Time of Evaluation Date of Evaluation: 09/28/18 Time of Evaluation: 06:55 - Subjective Subjective: patient seen and examined Patient put back on high flow oxygen Patient desaturates in the mid 80s at night Awaiting for home oxygen ABG to rule out hypercapnia and if patient candidate for trelegy continue steroids Nebulizer treatment Objective - Vital Signs/Intake and Output Vital Signs (last 24 hours): Temp Pulse Resp BP Pulse Ox 97.3 F L 61 20 122/81 91 L 09/28/18 08:04 09/28/18 08:04 09/28/18 08:04 09/28/18 08:04 09/28/18 08:04 Intake and Output: 09/28/18 09/28/18 06:59 18:59 Intake Total 500 Output Total 200 Balance 300 - Medications Medications: Current Medications Acetylcysteine (Acetylcysteine 20%) 3 ml IH RQ4 [facility] Last Admin: 09/28/18 01:30 Dose: 3 ml Albuterol/Ipratropium (Duoneb 3 Mg/0.5 Mg (3 Ml) Ud) 3 ml INH RQ6 [facility] Last Admin: 09/28/18 01:29 Dose: 3 ml Aspirin (Ecotrin) 81 mg PO DAILY [facility] Last Admin: 09/27/18 10:17 Dose: 81 mg Clopidogrel Bisulfate (Plavix) 75 mg PO DAILY [facility] Last Admin: 09/27/18 10:17 Dose: 75 mg Docusate Sodium (Colace) 100 mg PO BID [facility] Last Admin: 09/27/18 17:51 Dose: 100 mg Fluticasone/Vilanterol (Breo Ellipta 200-25 Mcg Inh) 1 puff INH RQD [facility] Last Admin: 09/27/18 07:59 Dose: 1 puff Lactulose (Enulose) 20 gm PO BID [facility] Last Admin: 09/27/18 17:38 Dose: Not Given Methylprednisolone (Solu-Medrol) 20 mg IVP Q12H [facility] Last Admin: 09/27/18 23:53 Dose: 20 mg Metoprolol Tartrate (Lopressor) 12.5 mg PO Q12 [facility] Last Admin: 09/27/18 21:24 Dose: 12.5 mg Multivitamins (Hexavitamin) 1 tab PO DAILY [facility] Last Admin: 09/27/18 10:20 Dose: 1 tab Pantoprazole Sodium (Protonix Ec Tab) 40 mg PO 0630 [facility] Last Admin: 09/28/18 06:31 Dose: 40 mg - Labs Labs: 09/28/18 06:26 09/28/18 06:26 Assessment and Plan (1) Chr obstructive pulmonary disease w/ acute lower respiratory infxn Status: Acute (2) Chronic congestive heart failure Status: Acute
[2018-09-28 08:54] LABS: LYMPHOCYTE 4 % (20-40); MONOCYTE 2 % (0-10); NEUTROPHIL 94 % (50-75); PLATELET ESTIMATE NORMAL (NORMAL); TOTAL CELLS COUNTED 100
[2018-09-28] MEDS: Multiple Vitamins Tab PO SCH (10:08)
[2018-09-28] MEDS: Fluticasone-Vilanterol 200/25mcg Diskus INH SCH (10:27)
[2018-09-28] MEDS: MethylPREDNISolone 40 mg Vial IVP SCH (11:23)
[2018-09-28 16:51] LABS: ABG ALLEN TEST POS; ARTERIAL BLOOD GAS HEMOGLOBIN 13.4 g/dL (11.7-17.4); ARTERIAL BLOOD GAS PCO2 33 mm/Hg (35-45); ARTERIAL BLOOD GAS PH 7.46 (7.35-7.45); ARTERIAL BLOOD GAS PO2 55 mm/Hg (80-100); ARTERIAL BLOOD GAS TCO2 24.5 mmol/L (22-28)
--- NOTE | 2018-09-28 19:54 | PN ---
DATE: 09/28/2018SUBJECTIVE: The patient complains of mild cough. He denies any chest pain or shortness of breath. PHYSICAL EXAMINATION: VITAL SIGNS: Blood pressure 122/81, heart rate 61, temperature 97.3, respirations 20. HEENT: Normocephalic. CHEST: Bilateral dry crepitations. HEART: S1, S2, regular. ABDOMEN: Soft. EXTREMITIES: No edema. LABORATORY STUDIES: Today's hemoglobin and hematocrit 12.2 and 37.2. White count and platelet count are within normal limits. Today's SMA-7 is within normal limits except for glucose of 269 and BUN of 28. Liver enzymes, 167 for ALT, and 319 for alkaline phosphatase, AST is within normal limits. ASSESSMENT: 1. Coronary artery disease, status post coronary artery bypass surgery. 2. Interstitial lung disease. 3. Improved prerenal azotemia. 4. History of cerebrovascular accident with residual right hemiparesis. 5. Uncontrolled diabetes mellitus. RECOMMENDATIONS: Continue current acetylcysteine inhalation every 4 hours. Continue aspirin 81 mg once a day, Plavix 75 mg once a day, Lopressor 12.5 mg twice a day, Solu-Medrol 20 mg intravenously every 12 hours. Jose Daniel Martinez MD
--- NOTE | 2018-09-29 00:02 | PN ---
DATE: 09/28/2018 SUBJECTIVE: The patient is seen today, 09/28/2018. He was placed on high-flow oxygen by acid conditioning worker after he desaturated overnight to the mid 80s. OBJECTIVE: VITAL SIGNS: Blood pressure 128/63, temperature 98.1, respiratory rate 20, and pulse 65. HEENT: Pupils equal and reactive to light. Normal-appearing mucosa of the conjunctivae, oropharynx, and nasal membrane mucosa. NECK: Supple. No JVD. No carotid bruit. No lymph node. No thyromegaly. CHEST AND LUNGS: Bilateral symmetrical expansion. Good air exchange. No rales, no rhonchi. CARDIOVASCULAR SYSTEM: PMI not localized. S1, S2. No additional sounds. ABDOMEN: Normoactive bowel sounds. No tenderness. No organomegaly. No masses. EXTREMITIES: No cyanosis, no clubbing, no edema. CENTRAL NERVOUS SYSTEM: Alert, awake, oriented x2; and the patient has right-sided hemiparesis. ASSESSMENT: 1. Exacerbation of chronic obstructive pulmonary disease. 2. Exacerbation of diastolic congestive heart failure. 3. Pulmonary hypertension. 4. Hypoxic respiratory failure. 5. Type 2 diabetes mellitus with hyperglycemia. 6. Elevated liver enzymes, likely secondary to medications. PLAN: Continue current medications and management and oxygen supplement as per acid conditioning worker and taper steroids as tolerated. Violeta Clark MD
[2018-09-29] MEDS: Acetylcysteine 20% Inhal Soln (4ml) IH SCH ×5 (01:20→19:44)
[2018-09-29] MEDS: Albuterol-Ipratrop 3 mg / 0.5 (3 ml) UD INH SCH ×4 (01:20→19:43)
[2018-09-29] MEDS: MethylPREDNISolone 40 mg Vial IVP SCH ×4 (01:40→23:56)
[2018-09-29] MEDS: Pantoprazole 40 mg EC Tab PO SCH (05:53)
[2018-09-29] MEDS: Fluticasone-Vilanterol 200/25mcg Diskus INH SCH (08:15)
[2018-09-29 08:40] LABS: BASO % 0.1 % (0.0-2.0); HEMOGLOBIN 12.8 g/dL (12.0-18.0); LYMPH # 0.4 K/uL (1.0-4.3); LYMPH % 3.9 % (20.0-40.0); MEAN CELL VOLUME 87.3 fL (80.0-94.0); MEAN CORPUSCULAR HEMOGLOBIN 28.7 pg (27.0-31.0); MEAN CORPUSCULAR HGB CONC 32.9 g/dL (33.0-37.0); MEAN PLATELET VOLUME 10.2 fL (7.2-11.7); MONO # 0.1 K/uL (0.0-0.8); MONO % 1.2 % (0.0-10.0); NEUT # 9.8 K/uL (1.8-7.0); NEUT % 94.8 % (50.0-75.0); PLATELET COUNT 272 K/uL (130-400); RBC 4.44 Mil/uL (4.40-5.90); RED CELL DISTRIBUTION WIDTH 17.3 % (11.5-14.5); WHITE BLOOD COUNT 10.3 K/uL (4.8-10.8)
[2018-09-29 09:26] LABS: LYMPHOCYTE 2 % (20-40); MONOCYTE 1 % (0-10); NEUTROPHIL 97 % (50-75); PLATELET ESTIMATE NORMAL (NORMAL); TOTAL CELLS COUNTED 100
[2018-09-29 09:46] LABS: ALB/GLOB RATIO 0.9 (1.0-2.1); ALBUMIN 3.1 g/dL (3.5-5.0); ALT/SGPT 158 U/L (21-72); AST/SGOT 50 U/L (17-59); BLOOD UREA NITROGEN 29 mg/dL (9-20); CALCIUM 8.3 mg/dl (8.6-10.4); GFR NON-AFRICAN AMERICAN > 60
[2018-09-29] MEDS: Multiple Vitamins Tab PO SCH (10:05)
--- NOTE | 2018-09-29 14:07 | RAD ---
Date of service: 09/29/2018 PROCEDURE: CHEST RADIOGRAPH, 1 VIEW HISTORY: sob COMPARISON: 09/26/2018 and 12/06/2017 serial chest radiographs 09/21/2018 CT thorax FINDINGS: LUNGS: Stable pulmonary parenchymal findings including alveolar and interstitial disease. PLEURA: No pneumothorax or pleural fluid seen. CARDIOVASCULAR: Cardiomegaly. Atherosclerotic calcifications identified primarily aortic arch. OSSEOUS STRUCTURES: No significant abnormalities. VISUALIZED UPPER ABDOMEN: Normal. OTHER FINDINGS: None. IMPRESSION: Persistent interstitial and alveolar changes bilaterally. No significant interval change.
--- NOTE | 2018-09-29 16:20 | CP.PCM.PN ---
Subjective - Date & Time of Evaluation Date of Evaluation: 09/29/18 Time of Evaluation: 15:35 - Subjective Subjective: Patient seen and examined today at bedside. Patient on Vapotherm high flow oxygen @ 40L. He is saturating in low 90s. Currently, patient afebrile and not in acute distress. Awaiting for home oxygen ABGs 09/28 - pCO2 33, pO2 55, HCO3 25, pH 7.46, ABG O2 sat 93%, carboxyhemoglobin 2.6, HHb 6.8 Echo 09/22 - EF 45-50%. Mild left ventricle systolic dysfunction. Mild dyskinesis in the mid-anteroeptal wall consistent with CAD. Normal left ventricular diastolic function, right ventricle size, right ventricle systolic function. Mildly dilated left and right atria. Mild aortic regurgitation. Moderate to severe tricuspid regurgitation. Trace to mild pulmoniv valvular regurgitation. Objective - Vital Signs/Intake and Output Vital Signs (last 24 hours): Temp Pulse Resp BP Pulse Ox 97.7 F 60 25 H 117/64 92 L 09/29/18 08:00 09/29/18 10:06 09/29/18 13:19 09/29/18 16:18 09/29/18 10:06 Intake and Output: 09/29/18 09/29/18 06:59 18:59 Intake Total 250 Output Total 600 Balance -350 - Medications Medications: Current Medications Acetylcysteine (Acetylcysteine 20%) 3 ml IH RQ4 [facility] Last Admin: 09/29/18 13:15 Dose: 3 ml Albuterol/Ipratropium (Duoneb 3 Mg/0.5 Mg (3 Ml) Ud) 3 ml INH RQ6 [facility] Last Admin: 09/29/18 13:16 Dose: 3 ml Aspirin (Ecotrin) 81 mg PO DAILY [facility] Last Admin: 09/29/18 10:05 Dose: 81 mg Clopidogrel Bisulfate (Plavix) 75 mg PO DAILY [facility] Last Admin: 09/29/18 10:05 Dose: 75 mg Docusate Sodium (Colace) 100 mg PO BID [facility] Last Admin: 09/29/18 10:04 Dose: 100 mg Enoxaparin Sodium (Lovenox) 30 mg SC DAILY [facility] 234 [facility]S AT [facility] Fluticasone/Vilanterol (Breo Ellipta 200-25 Mcg Inh) 1 puff INH RQD [facility] Last Admin: 09/29/18 08:15 Dose: 1 puff Lactulose (Enulose) 20 gm PO BID [facility] Last Admin: 09/29/18 10:05 Dose: Not Given Methylprednisolone (Solu-Medrol) 20 mg IVP Q12H [facility] Last Admin: 09/29/18 12:40 Dose: 20 mg Metoprolol Tartrate (Lopressor) 12.5 mg PO Q12 [facility] Last Admin: 09/29/18 10:06 Dose: Not Given Multivitamins (Hexavitamin) 1 tab PO DAILY [facility] Last Admin: 09/29/18 10:05 Dose: 1 tab Pantoprazole Sodium (Protonix Ec Tab) 40 mg PO 0630 [facility] Last Admin: 09/29/18 05:53 Dose: 40 mg - Labs Labs: 09/29/18 08:27 09/29/18 08:27 Assessment and Plan (1) Chr obstructive pulmonary disease w/ acute lower respiratory infxn Status: Acute (2) Chronic congestive heart failure Status: Acute
--- NOTE | 2018-09-29 19:38 | PN ---
DATE: 09/29/2018 SUBJECTIVE: The patient is still on high flow nasal O2. PHYSICAL EXAMINATION: VITAL SIGNS: Blood pressure 102/59, heart rate 60, temperature 97.7, respirations 25. HEENT: Normocephalic. CHEST: Minimal dry crackles bilaterally. HEART: S1 and S2, regular. EXTREMITIES: No edema. LABORATORY DATA: HANY profile is negative. Today's SMA-7 is within normal limits except for glucose of 319 and BUN of 29. Today's hemoglobin, hematocrit, white count and platelet count are within normal limit. Today's chest x-ray revealed bilateral reticulonodular pattern, bilateral right cardiophrenic angle area. ASSESSMENT: 1. Coronary artery disease status post coronary artery bypass surgery. 2. Interstitial lung disease. 3. Improved prerenal azotemia. 4. History of cerebrovascular accident with residual right hemiparesis. 5. Uncontrolled diabetes mellitus. RECOMMENDATIONS: Continue Mucomyst inhalation every 4 hours. Continue Colace 100 mg twice a day, albuterol inhaler every 6 hours, aspirin 81 mg once a day, Plavix 75 mg once a day, Solu-Medrol 20 mg intravenously every 12 hours. Start Lovenox 30 mg subcutaneously daily. Jose Daniel Martinez MD
--- NOTE | 2018-09-29 19:52 | PN ---
DATE: 09/29/2018 SUBJECTIVE: He is not in any cardiopulmonary distress. He is on high-flow oxygen. PHYSICAL EXAMINATION VITAL SIGNS: Blood pressure is 117/64, temperature 97.9, respiratory rate 18, and pulse 68. HEENT: Pupils equal, reactive to light. Normal-appearing mucosa of the conjunctivae, oropharynx, and nasal membrane mucosa. NECK: Supple. No JVD. No carotid bruit. No lymph nodes. No thyromegaly. CHEST AND LUNGS: Bilateral symmetrical expansion. Good air exchange. No rales, no rhonchi. CARDIOVASCULAR: PMI not localized. S1, S2. No additional sounds. ABDOMEN: Normoactive bowel sounds. No tenderness. No organomegaly. No masses. EXTREMITIES: No cyanosis, no clubbing, no edema. PIPE PULLER: Alert, awake, oriented x2. The patient has right-sided hemiparesis. ASSESSMENT: Hypertension, cerebrovascular accident, exacerbation of chronic obstructive pulmonary disease, and exacerbation of congestive heart failure, both systolic and diastolic, acute on chronic. PLAN: Continue current medications and high-flow oxygen. The patient is for home oxygen therapy which was ordered by parts department supervisor, discharge planning. Violeta Clark MD
[2018-09-30] MEDS: Acetylcysteine 20% Inhal Soln (4ml) IH SCH ×2 (00:10→07:35)
[2018-09-30 01:19] VITALS: RESP 20
[2018-09-30] MEDS: Albuterol-Ipratrop 3 mg / 0.5 (3 ml) UD INH SCH ×2 (02:00→07:35)
[2018-09-30] MEDS: Pantoprazole 40 mg EC Tab PO SCH (07:06)
[2018-09-30 07:59] LABS: BASO % 0.1 % (0.0-2.0); EOS % 0.1 % (0.0-4.0); HEMOGLOBIN 13.5 g/dL (12.0-18.0); LYMPH # 0.3 K/uL (1.0-4.3); LYMPH % 3.4 % (20.0-40.0); MEAN CELL VOLUME 87.3 fL (80.0-94.0); MEAN CORPUSCULAR HEMOGLOBIN 29.2 pg (27.0-31.0); MEAN CORPUSCULAR HGB CONC 33.5 g/dL (33.0-37.0); MEAN PLATELET VOLUME 10.1 fL (7.2-11.7); MONO # 0.2 K/uL (0.0-0.8); NEUT # 9.2 K/uL (1.8-7.0); NEUT % 94.4 % (50.0-75.0); PLATELET COUNT 296 K/uL (130-400); RBC 4.61 Mil/uL (4.40-5.90); RED CELL DISTRIBUTION WIDTH 17.8 % (11.5-14.5); WHITE BLOOD COUNT 9.7 K/uL (4.8-10.8)
[2018-09-30 08:19] VITALS: O2SAT 93
[2018-09-30 08:30] LABS: ALBUMIN 3.2 g/dL (3.5-5.0); ALT/SGPT 141 U/L (21-72); AST/SGOT 39 U/L (17-59); BLOOD UREA NITROGEN 39 mg/dL (9-20); CALCIUM 8.6 mg/dl (8.6-10.4); GFR NON-AFRICAN AMERICAN > 60
[2018-09-30 08:44] LABS: ALB/GLOB RATIO 0.8 (1.0-2.1)
[2018-09-30 08:51] LABS: ANISOCYTOSIS SLIGHT; LYMPHOCYTE 4 % (20-40); MONOCYTE 2 % (0-10); NEUTROPHIL 94 % (50-75); PLATELET ESTIMATE NORMAL (NORMAL); TOTAL CELLS COUNTED 100
[2018-09-30] MEDS: Multiple Vitamins Tab PO SCH (09:48)
[2018-09-30] MEDS ORDERED: Enoxaparin 30 mg Syringe SC SCH (10:00)
--- NOTE | 2018-09-30 11:37 | CP.PCM.PN ---
Subjective - Date & Time of Evaluation Date of Evaluation: 09/30/18 Time of Evaluation: 11:31 - Subjective Subjective: PATIENT SEEN TODAY / DENIES ANY CHEST PAIN / NAUSEA OR VOMITING C/O OF SOB ON MINIMAL EXERTION / DESAT SITTING WITHOUT OXYGEN ALSO DESAT UPON WALKING TO THE BATHROOM BELOW 88% Objective - Vital Signs/Intake and Output Vital Signs (last 24 hours): Temp Pulse Resp BP Pulse Ox 97.5 F L 63 20 123/71 93 L 09/30/18 08:18 09/30/18 08:18 09/30/18 08:18 09/30/18 08:18 09/30/18 08:18 Intake and Output: 09/30/18 09/30/18 06:59 18:59 Output Total 100 Balance -100 - Medications Medications: Current Medications Acetylcysteine (Acetylcysteine 20%) 3 ml IH RQ4 [facility] Last Admin: 09/30/18 07:35 Dose: 3 ml Albuterol/Ipratropium (Duoneb 3 Mg/0.5 Mg (3 Ml) Ud) 3 ml INH RQ6 [facility] Last Admin: 09/30/18 07:35 Dose: 3 ml Aspirin (Ecotrin) 81 mg PO DAILY [facility] Last Admin: 09/30/18 09:48 Dose: 81 mg Clopidogrel Bisulfate (Plavix) 75 mg PO DAILY [facility] Last Admin: 09/30/18 09:48 Dose: 75 mg Docusate Sodium (Colace) 100 mg PO BID [facility] Last Admin: 09/30/18 09:48 Dose: 100 mg Enoxaparin Sodium (Lovenox) 30 mg SC DAILY [facility] Last Admin: 09/30/18 09:48 Dose: 30 mg Fluticasone/Vilanterol (Breo Ellipta 200-25 Mcg Inh) 1 puff INH RQD [facility] Last Admin: 09/29/18 08:15 Dose: 1 puff Lactulose (Enulose) 20 gm PO BID [facility] Last Admin: 09/30/18 09:48 Dose: 20 gm Methylprednisolone (Solu-Medrol) 20 mg IVP Q12H [facility] Last Admin: 09/29/18 23:56 Dose: 20 mg Metoprolol Tartrate (Lopressor) 12.5 mg PO Q12 [facility] Last Admin: 09/30/18 09:48 Dose: 12.5 mg Multivitamins (Hexavitamin) 1 tab PO DAILY [facility] Last Admin: 09/30/18 09:48 Dose: 1 tab Pantoprazole Sodium (Protonix Ec Tab) 40 mg PO 0630 [facility] Last Admin: 09/30/18 07:06 Dose: 40 mg - Labs Labs: 09/30/18 07:53 09/30/18 07:53 Assessment and Plan - Assessment and Plan (Free Text) Assessment: PATIENT REQUIRES TRILOGY NON-INVASIVE VENTILATION PATIENT HAS CHRONIC RESPIRATRY FAILURE DUE TO SEVERE COPD; PATIENT REQUIRES TRILOGY NON-INVASIVE VENTILATION AVAPS MODE AT HOME AND BATTERY BACK UP THERE CANNOT BE ANY INTERRUPTION AT THE THERAPY; THIS IS TO ENSURE NIGHTTIME AND DAYTIME USE ; PLAN HAS BEEN DISCUSSED WITH PATIENT WITHOUT NIV PATIENT MAY ENDURE ADDITIONAL HOSPITAL ADMISSION
[2018-09-30] MEDS: MethylPREDNISolone 40 mg Vial IVP SCH (12:57)
--- NOTE | 2018-09-30 14:13 | CP.PCM.PN ---
Subjective - Date & Time of Evaluation Date of Evaluation: 09/30/18 Time of Evaluation: 14:12 - Subjective Subjective: PATIENT SEEN AND EXAMINED AT THE BEDSIDE Objective - Vital Signs/Intake and Output Vital Signs (last 24 hours): Temp Pulse Resp BP Pulse Ox 97.5 F L 63 20 123/71 93 L 09/30/18 08:18 09/30/18 08:18 09/30/18 08:18 09/30/18 08:18 09/30/18 08:18 Intake and Output: 09/30/18 09/30/18 06:59 18:59 Output Total 100 Balance -100 - Medications Medications: Current Medications Acetylcysteine (Acetylcysteine 20%) 3 ml IH RQ4 [facility] Last Admin: 09/30/18 07:35 Dose: 3 ml Albuterol/Ipratropium (Duoneb 3 Mg/0.5 Mg (3 Ml) Ud) 3 ml INH RQ6 [facility] Last Admin: 09/30/18 07:35 Dose: 3 ml Aspirin (Ecotrin) 81 mg PO DAILY [facility] Last Admin: 09/30/18 09:48 Dose: 81 mg Clopidogrel Bisulfate (Plavix) 75 mg PO DAILY [facility] Last Admin: 09/30/18 09:48 Dose: 75 mg Docusate Sodium (Colace) 100 mg PO BID [facility] Last Admin: 09/30/18 09:48 Dose: 100 mg Enoxaparin Sodium (Lovenox) 30 mg SC DAILY [facility] Last Admin: 09/30/18 09:48 Dose: 30 mg Fluticasone/Vilanterol (Breo Ellipta 200-25 Mcg Inh) 1 puff INH RQD [facility] Last Admin: 09/29/18 08:15 Dose: 1 puff Lactulose (Enulose) 20 gm PO BID [facility] Last Admin: 09/30/18 09:48 Dose: 20 gm Methylprednisolone (Solu-Medrol) 20 mg IVP Q12H [facility] Last Admin: 09/30/18 12:57 Dose: 20 mg Metoprolol Tartrate (Lopressor) 12.5 mg PO Q12 [facility] Last Admin: 09/30/18 09:48 Dose: 12.5 mg Multivitamins (Hexavitamin) 1 tab PO DAILY [facility] Last Admin: 09/30/18 09:48 Dose: 1 tab Pantoprazole Sodium (Protonix Ec Tab) 40 mg PO 0630 [facility] Last Admin: 09/30/18 07:06 Dose: 40 mg - Labs Labs: 09/30/18 07:53 09/30/18 07:53 Assessment and Plan - Assessment and Plan (Free Text) Assessment: FOLLOW UP WITH DR NAVAS IN HIS OFFICE ----CALL FOR APPOINTMENT FOLLOW UP WITH DR HANSEN IN HIS OFFICE ---CALL FOR APPOINTMENT CONTINUE HOME MEDICATION NEW PRESCRIPTION GIVEN LASIX 20 MG PO DIALY PREDNISONE TAPER THEN PREDNISONE 10 MG PO DAILY STOP TAKING THE AMIODORONE ACTIVITY TOLERATED HOME OXYGEN REQUIRE PER DR HANSEN CALL DR NAVAS OR GO TO THE EMERGENCY ROOM IF SYMPTOM RETURN OR WORSENING
[2018-09-30 15:48] VITALS: BP 111/64; PULSE 68; TEMP 97.6
--- NOTE | 2018-09-30 16:27 | PN ---
DATE: 09/30/2018 SUBJECTIVE: The patient is experiencing cough. He still on high-flow nasal O2. PHYSICAL EXAMINATION: VITAL SIGNS: Blood pressure 123/71, heart rate 63, temperature 97.5, respirations 20. HEENT: Normocephalic. CHEST: Bilateral dry crepitations. HEART: S1 and S2 regular. EXTREMITIES: No edema. LABORATORY DATA: Today's SMA-7 is within normal limit except for glucose 317 and BUN of 39. Today's hemoglobin, hematocrit, white count and platelet count are within normal limit. Yesterday's chest x-ray reported persistent interstitial and alveolar changes bilaterally. No significant interval change. ASSESSMENT: 1. Coronary artery disease status post coronary artery bypass surgery. 2. Interstitial lung disease. 3. Mild prerenal azotemia. 4. History of cerebrovascular accident with residual right hemiparesis. 5. Uncontrolled diabetes mellitus. recommendations: Continue aspirin 81 mg once a day, Lopressor 12.5 mg twice a day, Lovenox at 30 mg intravenously once a day, Plavix 75 mg once a day, Solu-Medrol 20 mg intravenously every 12 hours. Arrangements are being made to provide the patient with high-flow nasal O2 upon discharge. Jose Daniel Martinez MD
--- NOTE | 2018-09-30 16:59 | CP.PCM.PN ---
Subjective - Date & Time of Evaluation Date of Evaluation: 09/30/18 Time of Evaluation: 12:40 - Subjective Subjective: Patient seen and examined at bedside, sitting down comfortably. Afebrile and in no acute distress. Patient on Vapotherm high flow oxygen @40L; saturating in low 90's. Awaiting for home oxygen. Plan: Discharge on tapering steroids, Lasix; home oxygen and trelegy vent and LAMA/LABA -CXR (09/29): persistent interstitial and alveolar changes bilaterally. No significant interval change. Objective - Vital Signs/Intake and Output Vital Signs (last 24 hours): Temp Pulse Resp BP Pulse Ox 97.6 F 68 20 111/64 93 L 09/30/18 15:46 09/30/18 15:46 09/30/18 15:46 09/30/18 15:46 09/30/18 15:46 Intake and Output: 09/30/18 09/30/18 06:59 18:59 Intake Total 800 Output Total 100 900 Balance -100 -100 - Medications Medications: Current Medications Acetylcysteine (Acetylcysteine 20%) 3 ml IH RQ4 [facility] Last Admin: 09/30/18 07:35 Dose: 3 ml Albuterol/Ipratropium (Duoneb 3 Mg/0.5 Mg (3 Ml) Ud) 3 ml INH RQ6 [facility] Last Admin: 09/30/18 07:35 Dose: 3 ml Aspirin (Ecotrin) 81 mg PO DAILY [facility] Last Admin: 09/30/18 09:48 Dose: 81 mg Clopidogrel Bisulfate (Plavix) 75 mg PO DAILY [facility] Last Admin: 09/30/18 09:48 Dose: 75 mg Docusate Sodium (Colace) 100 mg PO BID [facility] Last Admin: 09/30/18 09:48 Dose: 100 mg Enoxaparin Sodium (Lovenox) 30 mg SC DAILY [facility] Last Admin: 09/30/18 09:48 Dose: 30 mg Fluticasone/Vilanterol (Breo Ellipta 200-25 Mcg Inh) 1 puff INH RQD [facility] Last Admin: 09/29/18 08:15 Dose: 1 puff Lactulose (Enulose) 20 gm PO BID [facility] Last Admin: 09/30/18 09:48 Dose: 20 gm Methylprednisolone (Solu-Medrol) 20 mg IVP Q12H [facility] Last Admin: 09/30/18 12:57 Dose: 20 mg Metoprolol Tartrate (Lopressor) 12.5 mg PO Q12 [facility] Last Admin: 09/30/18 09:48 Dose: 12.5 mg Multivitamins (Hexavitamin) 1 tab PO DAILY [facility] Last Admin: 09/30/18 09:48 Dose: 1 tab Pantoprazole Sodium (Protonix Ec Tab) 40 mg PO 0630 [facility] Last Admin: 09/30/18 07:06 Dose: 40 mg - Labs Labs: 09/30/18 07:53 09/30/18 07:53 Assessment and Plan (1) Chr obstructive pulmonary disease w/ acute lower respiratory infxn Status: Acute (2) Chronic congestive heart failure Status: Acute
--- NOTE | 2018-10-13 19:59 | DS ---
DISCHARGE SUMMARY LATE ENTRY REASON FOR ADMISSION: This is a 63-year-old male with history of multiple medical problems who was admitted for exacerbation of chronic obstructive pulmonary disease/congestive heart failure. COURSE OF HOSPITALIZATION: The patient was admitted to telemetry floor, and he was started on BiPAP/high-flow oxygen. The patient had pulmonary consultation done by Dr. Peña, and the patient also had a cardiology consult done. The patient was maintained on Lasix as well as bronchodilators and steroids. The patient's symptoms gradually improved. It was advised by [facility]smith to discharge the patient on home oxygen therapy and Trelegy, vent as well as LAMA/LABA. The patient was discharged in a stable condition with his caregiver. FINAL DIAGNOSES: 1. Exacerbation of chronic obstructive pulmonary disease. 2. Hypertension. 3. Cerebrovascular accident. 4. Coronary artery disease, status post coronary artery bypass graft. 5. Cerebrovascular accident with right-sided weakness. 6. Peripheral vascular disease. Violeta Clark MD
== END 2018-09-30 19:05 | disposition home or self-care (01) | DRG 190 ==
LOC: C.ER 15:21 → C.9E 17:34 → C.5S 20:11
PROVIDERS: ADMIT Internal Medicine; ATTEND Internal Medicine
DX: J44.0 Chronic obstructive pulmonary disease with (acute) lower respiratory infection (principal); I50.43 Acute on chronic combined systolic (congestive) and diastolic (congestive) heart failure; J96.01 Acute respiratory failure with hypoxia; J18.9 Pneumonia, unspecified organism; I69.351 Hemiplegia and hemiparesis following cerebral infarction affecting right dominant side; J84.9 Interstitial pulmonary disease, unspecified; J44.1 Chronic obstructive pulmonary disease with (acute) exacerbation; I11.0 Hypertensive heart disease with heart failure; E11.65 Type 2 diabetes mellitus with hyperglycemia; I46.9 Cardiac arrest, cause unspecified; E78.00 Pure hypercholesterolemia, unspecified; E78.5 Hyperlipidemia, unspecified; I07.1 Rheumatic tricuspid insufficiency; I25.10 Atherosclerotic heart disease of native coronary artery without angina pectoris; I27.20 Pulmonary hypertension, unspecified; I35.1 Nonrheumatic aortic (valve) insufficiency; J84.10 Pulmonary fibrosis, unspecified; T46.2X5A Adverse effect of other antidysrhythmic drugs, initial encounter; Z79.02 Long term (current) use of antithrombotics/antiplatelets; Z79.82 Long term (current) use of aspirin; Z87.891 Personal history of nicotine dependence; Z95.1 Presence of aortocoronary bypass graft; Z99.81 Dependence on supplemental oxygen

== ENCOUNTER 2018-10-06 17:03 | Inpatient (IN) | payer MEDICARE, BC ==
[2018-10-06 17:03] VITALS: BMI 24.0
[2018-10-06] MEDS ORDERED: (Novolin R) Insulin Human Regular 100 units/ml vial IVP STA ×2 (17:22→18:04)
[2018-10-06] MEDS ORDERED: Sodium Chloride 0.9% 1,000 ML IV ONE ×2 (17:22→18:00)
[2018-10-06 17:35] LABS: MEAN CORPUSCULAR HGB CONC 33.1 g/dL (33.0-37.0)
[2018-10-06 17:41] LABS: BASO % 0.4 % (0.0-2.0); LYMPH # 0.2 K/uL (1.0-4.3); LYMPH % 2.2 % (20.0-40.0); MEAN CELL VOLUME 87.8 fL (80.0-94.0); MEAN PLATELET VOLUME 10.1 fL (7.2-11.7); MONO # 0.2 K/uL (0.0-0.8); MONO % 1.6 % (0.0-10.0); NEUT # 10.6 K/uL (1.8-7.0); NEUT % 95.8 % (50.0-75.0); PLATELET COUNT 252 K/uL (130-400); RBC 5.56 Mil/uL (4.40-5.90); RED CELL DISTRIBUTION WIDTH 17.6 % (11.5-14.5); WHITE BLOOD COUNT 11.1 K/uL (4.8-10.8)
--- NOTE | 2018-10-06 17:42 | RAD ---
HISTORY: Diabetic COMPARISON: Chest x-ray performed 09/29/18 TECHNIQUE: Chest, one view. FINDINGS: LUNGS: Moderate diffuse interstitial prominence. Increased haziness within the right upper and to a right lesser extent lower lobe may reflect superimposed pneumonia. Please note that chest x-ray has limited sensitivity for the detection of pulmonary masses. PLEURA: No significant pleural effusion identified. No definite pneumothorax . CARDIOVASCULAR: Median sternotomy wires with evidence of CABG. Borderline cardiomegaly. Dense atherosclerotic calcification present. OSSEOUS STRUCTURES: Osseous demineralization. Degenerative changes. Acromioclavicular arthropathy. VISUALIZED UPPER ABDOMEN: Unremarkable. OTHER FINDINGS: None. IMPRESSION: Moderate interstitial prominence likely chronic however correlate clinically to exclude infection or edema. Increased haziness within the right upper and to a lesser extent right lower lobe may reflect superimposed pneumonia in the setting of chronic interstitial disease.
[2018-10-06 17:44] LABS: HEMOGLOBIN 16.1 g/dL (12.0-18.0)
[2018-10-06] MEDS ORDERED: (Novolin R) Insulin Human Regular 100 units/ml vial ONE (18:11)
[2018-10-06 18:33] LABS: ALBUMIN 4.1 g/dL (3.5-5.0); ALT/SGPT 131 U/L (21-72); AST/SGOT 35 U/L (17-59); BLOOD UREA NITROGEN 56 mg/dL (9-20); CALCIUM 9.3 mg/dl (8.6-10.4); GFR NON-AFRICAN AMERICAN > 60
--- NOTE | 2018-10-06 18:40 | C.PDOC ---
History Of Present Illness 63 y/o male presents to the ER for evaluation of elevated blood sugar levels. Patient states that he went to visit his PMD . He was found to have blood sugar levels over 600 and his PMD advised him to visit the ER. Patient is complaining of polyuria and polydipsia.Denies having history of diabetes. Time Seen by Provider: 10/06/18 17:16 Chief Complaint (Nursing): High Blood Sugar History Per: Patient History/Exam Limitations: no limitations Onset/Duration Of Symptoms: Days Current Symptoms Are (Timing): Still Present Severity: Moderate Past Medical History Reviewed: Historical Data, Nursing Documentation, Vital Signs Vital Signs: Last Vital Signs Temp 97.8 F 10/06/18 17:15 Pulse 72 10/06/18 18:10 Resp 18 10/06/18 18:10 BP 122/63 10/06/18 18:10 Pulse Ox 99 10/06/18 18:10 - Medical History PMH: Asthma, CAD, COPD, HTN, Hypercholesterolemia Denies: Chronic Kidney Disease Surgical History: CABG (12/15/17 at [facility] [place]) - [facility] Procedures EXERCISE TREATMENT OF MUSCULOSK WHOLE USING ASSIST EQUIPMENT (12/24/17) FLUOROSCOPY OF AORTA, BI LE ART USING OTH CONTRAST (12/06/17) FLUOROSCOPY OF RIGHT AND LEFT HEART USING OTHER CONTRAST (12/06/17) HOME MANAGEMENT TREATMENT USING ASSIST EQUIPMENT (12/24/17) INTRODUCE OF OTH THERAP SUBST INTO RESP TRACT, VIA OPENING (12/24/17) MEASURE CARDIAC SAMPL & PRESSURE, BILATERAL, PERC (12/06/17) Family History: States: No Known Family Hx - Social History Hx Alcohol Use: No Hx Substance Use: Yes (10 years ago) Review Of Systems Except As Marked, All Systems Reviewed And Found Negative. Constitutional: Positive for: Other (polydipsia). Negative for: Fever, Chills Gastrointestinal: Negative for: Nausea, Vomiting Genitourinary: Positive for: Other (polyuria) Physical Exam - Physical Exam Appears: Non-toxic, No Acute Distress Skin: Normal Color, Warm, Dry Head: Atraumatic, Normacephalic Eye(s): bilateral: Normal Inspection Nose: Normal Oral Mucosa: Dry Neck: Supple Chest: Symmetrical Cardiovascular: Rhythm Regular Respiratory: Normal Breath Sounds, No Rales, No Rhonchi, No Wheezing Gastrointestinal/Abdominal: Normal Exam, Soft, No Tenderness, No Guarding, No Rebound Neurological/Psych: Oriented x3, Normal Speech ED Course And Treatment - Laboratory Results Result Diagrams: 10/06/18 17:31 10/06/18 17:31 Lab Interpretation: Abnormal (UA no ketones) O2 Sat by Pulse Oximetry: 99 (RA) Pulse Ox Interpretation: Normal Disposition - Disposition Disposition: HOSPITALIZED Condition: GOOD Forms: [facility] (Czech) - Clinical Impression Clinical Impression: Hyperglycemia, Gait apraxia - Scribe Statement The provider has reviewed the documentation as recorded by the Tracy Justice Provider Attestation: All medical record entries made by the Tracy were at my direction and personally dictated by me. I have reviewed the chart and agree that the record accurately reflects my personal performance of the history, physical exam, medical decision making, and the department course for this patient. I have also personally directed, reviewed, and agree with the discharge instructions and disposition.
[2018-10-06 18:46] LABS: URINE BILIRUBIN NEGATIVE (NEGATIVE); URINE CLARITY Clear (Clear); URINE COLOR Yellow (YELLOW); URINE GLUCOSE (UA) 3+ mg/dL (Normal); URINE LEUKOCYTE ESTERASE NEG Leu/uL (Negative); URINE PROTEIN 1+ mg/dL (NEGATIVE); URINE UROBILINOGEN NORMAL mg/dL (0.2-1.0)
[2018-10-06 18:48] LABS: URINE BLOOD TRACE (NEGATIVE)
--- NOTE | 2018-10-06 18:53 | C.PDOC ---
Time Seen by Provider: 10/06/18 17:16 Chief Complaint (Nursing): High Blood Sugar Past Medical History Vital Signs: Last Vital Signs Temp 97.8 F 10/06/18 17:15 Pulse 72 10/06/18 18:10 Resp 18 10/06/18 18:10 BP 122/63 10/06/18 18:10 Pulse Ox 99 10/06/18 18:10 - Medical History PMH: Asthma, CAD, COPD, HTN, Hypercholesterolemia Denies: Chronic Kidney Disease Surgical History: CABG (12/15/17 at [facility] [place]) - [facility] Procedures EXERCISE TREATMENT OF MUSCULOSK WHOLE USING ASSIST EQUIPMENT (12/24/17) FLUOROSCOPY OF AORTA, BI LE ART USING OTH CONTRAST (12/06/17) FLUOROSCOPY OF RIGHT AND LEFT HEART USING OTHER CONTRAST (12/06/17) HOME MANAGEMENT TREATMENT USING ASSIST EQUIPMENT (12/24/17) INTRODUCE OF OTH THERAP SUBST INTO RESP TRACT, VIA OPENING (12/24/17) MEASURE CARDIAC SAMPL & PRESSURE, BILATERAL, PERC (12/06/17) Family History: States: Unknown Family Hx - Social History Hx Alcohol Use: No Hx Substance Use: Yes (10 years ago) ED Course And Treatment - Laboratory Results Result Diagrams: 10/06/18 17:31 10/06/18 17:31 Lab Interpretation: Abnormal ECG: Interpreted By De ECG Rhythm: Sinus Rhythm O2 Sat by Pulse Oximetry: 99 - Radiology CXR: Interpreted by De CXR Interpretation: Yes: No Acute Disease Progress Note: insulin, IVF Reevaluation Time: 18:54 Reassessment Condition: Improved - Physician Consult Information Outcome Of Conversation: [id number], [id number]: d/w Dr. Clark, PMD, ok to admit Medical Decision Making Medical Decision Making: Diabetes: mild elevated glu during prior evals and admissions, but not medicated now acute elevations glu RISS as inpt Gait Apraxia: Wasting vs Deconditioning was walking better prior to previous admission consider DEVAN during dispo Disposition Doctor Will See Patient In The: Hospital Counseled Patient/Family Regarding: Studies Performed, Diagnosis - Disposition Disposition: HOSPITALIZED Disposition Time: 18:56 Condition: GOOD Forms: [facility] (Telugu) - Clinical Impression Clinical Impression: Hyperglycemia, Gait apraxia
[2018-10-06 18:57] LABS: LYMPHOCYTE 2 % (20-40); MONOCYTE 1 % (0-10); NEUTROPHIL 97 % (50-75); PLATELET ESTIMATE NORMAL (NORMAL); TOTAL CELLS COUNTED 100
[2018-10-06] MEDS: Sodium Chloride 0.9% 1,000 ML IV SCH (21:00)
[2018-10-06] MEDS ORDERED: Bisacodyl 5mg EC Tab PO PRN (21:12)
[2018-10-06] MEDS: (Novolog) Insulin Aspart, Recombinant 100 u/ml 10 ml vial SC SCH (21:40)
[2018-10-07] MEDS: Albuterol-Ipratrop 3 mg / 0.5 (3 ml) UD INH SCH ×4 (01:12→21:03)
[2018-10-07] MEDS: Sodium Chloride 0.9% 1,000 ML IV SCH ×3 (06:10→23:06)
[2018-10-07] MEDS: (Novolog) Insulin Aspart, Recombinant 100 u/ml 10 ml vial SC SCH ×4 (08:09→21:45)
[2018-10-07] MEDS: Multiple Vitamins Tab PO SCH (11:00)
[2018-10-07] MEDS: Pantoprazole 40 mg EC Tab PO SCH (11:01)
--- NOTE | 2018-10-07 12:36 | CP.PCM.CON ---
History of Present Illness - History of Present Illness History of Present Illness: Vascular Surgery Patient is a 63-year-old male with PMHx of asthma, CAD s/p CABG, COPD, HTN, and HLD was admitted for COPD exacerbation. Surgery is consulted to evaluate for PVD. Pt had PAWAN/PVR done in 04/2018 and shows dimished wave form on L LE. c/o SOB. Patient denies any cough, fevers, chills, headaches, or nasal congestion. PMHx: COPD, HTN, CAD, HLD PSHx: CABG Allergies: NKDA Review of Systems - Review of Systems Review of Systems: See HPI Past Patient History - Infectious Disease Hx of Infectious Diseases: None - Past Medical History & Family History Past Medical History?: Yes - Past Social History Smoking Status: Former Smoker - CARDIAC Hx Hypercholesterolemia: Yes Hx Hypertension: Yes - PULMONARY Hx Asthma: Yes Hx Chronic Obstructive Pulmonary Disease (COPD): Yes - NEUROLOGICAL HX Cerebrovascular Accident: Yes - HEENT Hx HEENT Problems: No Hx Blind: No Hx Cataracts: No Hx Deafness: No Hx Difficulty Chewing: No Hx Epistaxis: No Hx Glaucoma: No Hx Macular Degeneration: No - RENAL Hx Chronic Kidney Disease: No - ENDOCRINE/METABOLIC Hx Endocrine Disorders: Yes Hx Diabetes Mellitus Type 2: Yes - HEMATOLOGICAL/ONCOLOGICAL Hx Blood Disorders: No - INTEGUMENTARY Hx Dermatological Problems: No - MUSCULOSKELETAL/RHEUMATOLOGICAL Hx Falls: Yes Other/Comment: Feeling weak BLE - GASTROINTESTINAL Hx Gastrointestinal Disorders: No - GENITOURINARY/GYNECOLOGICAL Hx Genitourinary Disorders: No - PSYCHIATRIC Hx Substance Use: Yes (10 years ago) - SURGICAL HISTORY Hx Coronary Artery Bypass Graft: Yes (12/15/17 at [facility] [place]) - ANESTHESIA Hx Anesthesia: Yes Hx Anesthesia Reactions: No Hx Malignant Hyperthermia: No Has any member of the family had a problem w/ anesthesia?: No Meds Allergies/Adverse Reactions: Allergies Allergy/AdvReac Type Severity Reaction Status Date / Time No Known Allergies Allergy Verified 09/21/18 15:37 - Medications Medications: Current Medications Albuterol/Ipratropium (Duoneb 3 Mg/0.5 Mg (3 Ml) Ud) 3 ml INH RQ6 [facility] Last Admin: 10/07/18 01:12 Dose: 3 ml Aspirin (Ecotrin) 81 mg PO DAILY [facility] Last Admin: 10/07/18 11:01 Dose: 81 mg Bisacodyl (Dulcolax) 10 mg PO DAILY PRN PRN Reason: Constipation Clopidogrel Bisulfate (Plavix) 75 mg PO DAILY [facility] Last Admin: 10/07/18 11:01 Dose: 75 mg Docusate Sodium (Colace) 100 mg PO BID [facility] Last Admin: 10/07/18 11:01 Dose: 100 mg Glipizide (Glucotrol) 10 mg PO ACBD [facility] Last Admin: 10/07/18 08:09 Dose: 10 mg Heparin Sodium (Porcine) (Heparin) 5,000 units SC Q12 [facility] Last Admin: 10/07/18 11:00 Dose: 5,000 units Sodium Chloride (Sodium Chloride 0.9%) 1,000 mls @ 100 mls/hr IV .Q10H [facility] Last Admin: 10/07/18 09:12 Dose: 100 mls/hr Insulin Aspart (Novolog) 0 unit SC ACHS [facility]; Protocol Last Admin: 10/07/18 08:09 Dose: 4 unit Lactulose (Enulose) 20 gm PO BID [facility] Last Admin: 10/07/18 11:00 Dose: 20 gm Metformin HCl (Glucophage) 500 mg PO TID [facility] Last Admin: 10/07/18 11:00 Dose: 500 mg Metoprolol Tartrate (Lopressor) 12.5 mg PO Q12H [facility] Last Admin: 10/07/18 11:00 Dose: 12.5 mg Multivitamins (Hexavitamin) 1 tab PO DAILY [facility] Last Admin: 10/07/18 11:00 Dose: 1 tab Pantoprazole Sodium (Protonix Ec Tab) 40 mg PO DAILY [facility] Last Admin: 10/07/18 11:01 Dose: 40 mg Rosuvastatin Calcium (Crestor) 40 mg PO HS [facility] Last Admin: 10/06/18 21:38 Dose: 40 mg Physical Exam - Constitutional Appears: No Acute Distress - Head Exam Head Exam: ATRAUMATIC, NORMAL INSPECTION, NORMOCEPHALIC - Eye Exam Eye Exam: EOMI - ENT Exam ENT Exam: Mucous Membranes Moist - Neck Exam Neck exam: Positive for: Normal Inspection - Respiratory Exam Respiratory Exam: Decreased Breath Sounds - Cardiovascular Exam Cardiovascular Exam: REGULAR RHYTHM - GI/Abdominal Exam GI & Abdominal Exam: Soft. absent: Tenderness - Extremities Exam Additional comments: non palpable distal pulses. - Neurological Exam Neurological exam: Alert, CN II-XII Intact, Normal Gait, Oriented x3, Reflexes Normal - Psychiatric Exam Psychiatric exam: Normal Affect, Normal Mood Results - Vital Signs Recent Vital Signs: Last Vital Signs Temp 98.0 F 10/07/18 07:57 Pulse 70 10/07/18 07:57 Resp 20 10/07/18 07:57 BP 103/64 10/07/18 07:57 Pulse Ox 96 10/07/18 07:57 - Labs Result Diagrams: 10/06/18 17:31 10/06/18 17:31 Labs: Laboratory Results - last 24 hr 10/06/18 10/06/18 10/06/18 17:13 17:31 17:31 WBC 11.1 H RBC 5.56 Hgb 16.1 D Hct 48.8 MCV 87.8 MCH 29.0 MCHC 33.1 RDW 17.6 H Plt Count 252 MPV 10.1 Neut % (Auto) 95.8 H Lymph % (Auto) 2.2 L [place] % (Auto) 1.6 Eos % (Auto) 0.0 Baso % (Auto) 0.4 Neut # (Auto) 10.6 H Lymph # (Auto) 0.2 L [place] # (Auto) 0.2 Eos # (Auto) 0.0 Baso # (Auto) 0.0 Neutrophils % (Manual) 97 H Lymphocytes % (Manual) 2 L Monocytes % (Manual) 1 Platelet Estimate Normal Sodium 131 L Potassium 5.4 H Chloride 89 L Carbon Dioxide 29 Anion Gap 18 BUN 56 H Creatinine 1.1 Est GFR ( Amer) > 60 Est GFR (Non-Af Amer) > 60 POC Glucose (mg/dL) > 500 H* Random Glucose 586 H* D Calcium 9.3 Total Bilirubin 1.7 H AST 35 ALT 131 H Alkaline Phosphatase 320 H Total Protein 8.3 Albumin 4.1 Globulin 4.2 H Albumin/Globulin Ratio 1.0 Urine Color Urine Clarity Urine pH Ur Specific [place] Urine Protein Urine Glucose (UA) Urine Ketones Urine Blood Urine Nitrate Urine Bilirubin Urine Urobilinogen Ur Leukocyte Esterase Urine WBC (Auto) Urine RBC (Auto) 10/06/18 10/06/18 10/06/18 18:26 18:39 19:09 WBC RBC Hgb Hct MCV MCH MCHC RDW Plt Count MPV Neut % (Auto) Lymph % (Auto) [place] % (Auto) Eos % (Auto) Baso % (Auto) Neut # (Auto) Lymph # (Auto) [place] # (Auto) Eos # (Auto) Baso # (Auto) Neutrophils % (Manual) Lymphocytes % (Manual) Monocytes % (Manual) Platelet Estimate Sodium Potassium Chloride Carbon Dioxide Anion Gap BUN Creatinine Est GFR ( Amer) Est GFR (Non-Af Amer) POC Glucose (mg/dL) 468 H* 395 H Random Glucose Calcium Total Bilirubin AST ALT Alkaline Phosphatase Total Protein Albumin Globulin Albumin/Globulin Ratio Urine Color Yellow Urine Clarity Clear Urine pH 6.0 Ur Specific [place] 1.024 Urine Protein 1+ H Urine Glucose (UA) 3+ H Urine Ketones Negative Urine Blood Trace H Urine Nitrate Negative Urine Bilirubin Negative Urine Urobilinogen Normal Ur Leukocyte Esterase Neg Urine WBC (Auto) < 1 Urine RBC (Auto) 1 10/06/18 10/07/18 10/07/18 21:02 02:23 07:33 WBC RBC Hgb Hct MCV MCH MCHC RDW Plt Count MPV Neut % (Auto) Lymph % (Auto) [place] % (Auto) Eos % (Auto) Baso % (Auto) Neut # (Auto) Lymph # (Auto) [place] # (Auto) Eos # (Auto) Baso # (Auto) Neutrophils % (Manual) Lymphocytes % (Manual) Monocytes % (Manual) Platelet Estimate Sodium Potassium Chloride Carbon Dioxide Anion Gap BUN Creatinine Est GFR ( Amer) Est GFR (Non-Af Amer) POC Glucose (mg/dL) 394 H 273 H 207 H Random Glucose Calcium Total Bilirubin AST ALT Alkaline Phosphatase Total Protein Albumin Globulin Albumin/Globulin Ratio Urine Color Urine Clarity Urine pH Ur Specific [place] Urine Protein Urine Glucose (UA) Urine Ketones Urine Blood Urine Nitrate Urine Bilirubin Urine Urobilinogen Ur Leukocyte Esterase Urine WBC (Auto) Urine RBC (Auto) 10/07/18 11:17 WBC RBC Hgb Hct MCV MCH MCHC RDW Plt Count MPV Neut % (Auto) Lymph % (Auto) [place] % (Auto) Eos % (Auto) Baso % (Auto) Neut # (Auto) Lymph # (Auto) [place] # (Auto) Eos # (Auto) Baso # (Auto) Neutrophils % (Manual) Lymphocytes % (Manual) Monocytes % (Manual) Platelet Estimate Sodium Potassium Chloride Carbon Dioxide Anion Gap BUN Creatinine Est GFR ( Amer) Est GFR (Non-Af Amer) POC Glucose (mg/dL) 272 H Random Glucose Calcium Total Bilirubin AST ALT Alkaline Phosphatase Total Protein Albumin Globulin Albumin/Globulin Ratio Urine Color Urine Clarity Urine pH Ur Specific [place] Urine Protein Urine Glucose (UA) Urine Ketones Urine Blood Urine Nitrate Urine Bilirubin Urine Urobilinogen Ur Leukocyte Esterase Urine WBC (Auto) Urine RBC (Auto) Assessment & Plan - Assessment and Plan (Free Text) Assessment: PVD PAWAN/PVR shows diminshes wave from in 04/2018 -f/u CTA Pt seen and examined w Dr. rodríguez
[2018-10-07] MEDS ORDERED: Iodixanol 320 mg/ml 150 ml Bottle IV ONE (15:19)
[2018-10-07 17:35] LABS: BLOOD UREA NITROGEN 32 mg/dL (9-20); CALCIUM 8.2 mg/dl (8.6-10.4); GFR NON-AFRICAN AMERICAN > 60
--- NOTE | 2018-10-07 19:06 | US ---
HISTORY: hepatitis COMPARISON: None available. TECHNIQUE: Sonographic evaluation of the abdomen. FINDINGS: LIVER: Measures 16.0 cm in sagittal dimension. Echogenic liver may be seen in setting of hepatic parenchymal disease or fatty infiltration. No focal hepatic mass identified. The main portal vein appears patent with normal directional flow. No intrahepatic bile duct dilatation. Trace perihepatic fluid. GALLBLADDER: Gallbladder sludge. No gallbladder wall thickening. Negative sonographic Jensen's sign as assessed by the thermometer maker. COMMON BILE DUCT: Measures 3 mm. PANCREAS: Not well visualized. RIGHT KIDNEY: Measures 10.8 x 4.9 x 4.9 cm. No obstructing calculus or hydronephrosis identified. LEFT KIDNEY: Measures 10.3 x 4.7 x 4.8 cm. No obstructing calculus or hydronephrosis identified. SPLEEN: Measures approximately 8.7 cm. AORTA: Limited views appear unremarkable. IVC: Limited views appear unremarkable. OTHER FINDINGS: None. IMPRESSION: Trace perihepatic fluid. Echogenic liver may be seen in setting of hepatic parenchymal disease or fatty infiltration. Gallbladder sludge.
[2018-10-07] MEDS: (Lantus) Insulin Glargine, Recombinant SC SCH (22:58)
--- NOTE | 2018-10-08 00:42 | HP ---
HISTORY OF PRESENT ILLNESS: This is a 63-year-old male with history of multiple medical problems, presented to my office on the day of admission with symptoms of generalized weakness and excessive urination and thirstiness. The patient was evaluated and found to have blood sugar above 600. The patient was brought to emergency room for evaluation, where he was found to have dehydration with acute renal failure and prerenal azotemia. Subsequently, the patient was admitted for IV hydration and to manage new onset diabetes mellitus. Other review of system, the patient has symptoms of right-sided weakness secondary to CVA with dependent rubor of the right lower extremity as well as pain also. The patient has been on home oxygen therapy. Other review of system is negative. ALLERGIES: NO KNOWN ALLERGY. MEDICATIONS: Reviewed and ordered as per MAR. SOCIAL HISTORY: Positive history of smoking. No EtOH or substance abuse. FAMILY HISTORY: Noncontributory. PAST MEDICAL HISTORY: COPD, on home oxygen therapy; hypertension; type 2 diabetes mellitus; hypercholesterolemia; and CVA with right-sided weakness. PHYSICAL EXAMINATION: GENERAL: The patient is in bed, not in any cardiopulmonary distress at the time of this examination. VITAL SIGNS: Blood pressure 104/61, temperature 98, respiratory rate 20, and pulse 66. HEENT: Pupils equal, reactive to light. Dry mucosa of the conjunctivae and oropharyngeal mucosa. NECK: Supple. No JVD. No carotid bruit. No lymph node. No thyromegaly. CHEST AND LUNGS: Bilateral symmetrical expansion. Good air exchange. No rales. No rhonchi. CARDIOVASCULAR SYSTEM: PMI not localized. S1, S2. No additional sounds. ABDOMEN: Normoactive bowel sounds. No tenderness. No organomegaly. No masses. EXTREMITIES: No cyanosis, no clubbing, no edema. CENTRAL NERVOUS SYSTEM: Alert, awake, oriented x2, and right-sided hemiparesis. LABORATORY DATA: BUN on admission was 56 and creatinine 1.1 and blood sugar 586. ASSESSMENT: Type 2 diabetes mellitus with hyperglycemia, acute renal failure with prerenal azotemia, hyperkalemia, peripheral vascular disease, cerebrovascular accident with right-sided hemiparesis. PLAN: AccuCheks with insulin coverage every 4 hours. Start metformin as well as glipizide, and we will add Lantus 10 units twice a day. Vascular surgery consult, and discussed the patient's condition with his caregiver and power of erisa attorney. Edita MD Eduardo
[2018-10-08] MEDS: Albuterol-Ipratrop 3 mg / 0.5 (3 ml) UD INH SCH ×3 (01:29→20:35)
[2018-10-08] MEDS: Sodium Chloride 0.9% 1,000 ML IV SCH ×5 (02:45→23:29)
--- NOTE | 2018-10-08 07:29 | CARD ---
APPROVED REPORT Date of service: 10/06/2018 EKG Measurement Heart [id number] <Conclusion> Normal sinus rhythm Right atrial enlargement Right bundle branch block Anterior infarct, age undetermined Abnormal ECG
[2018-10-08 07:38] LABS: HEPATITIS B SURFACE AG Negative (NEGATIVE)
[2018-10-08 07:44] LABS: HEPATITIS A IGM NEGATIVE (NEGATIVE); HEPATITIS B CORE AB NEGATIVE (NEGATIVE)
[2018-10-08] MEDS: (Novolog) Insulin Aspart, Recombinant 100 u/ml 10 ml vial SC SCH ×4 (07:44→22:03)
[2018-10-08 07:56] LABS: HEPATITIS C ANTIBODY NEGATIVE (NEGATIVE)
--- NOTE | 2018-10-08 09:00 | CP.PCM.PN ---
Subjective - Date & Time of Evaluation Date of Evaluation: 10/08/18 Time of Evaluation: 08:57 - Subjective Subjective: Surgery: Dr. Gil Pt seen and examined. No acute overnight events. States he feels well, admits to some pain in his feet. Denies other complaints at this time. Denies fevers/chills. Objective - Vital Signs/Intake and Output Vital Signs (last 24 hours): Temp Pulse Resp BP Pulse Ox 98.1 F 60 20 110/68 96 10/08/18 08:07 10/08/18 08:07 10/08/18 08:07 10/08/18 08:07 10/08/18 08:07 Intake and Output: 10/08/18 10/08/18 06:59 18:59 Intake Total 1780 Output Total 3 Balance 1777 - Medications Medications: Current Medications Albuterol/Ipratropium (Duoneb 3 Mg/0.5 Mg (3 Ml) Ud) 3 ml INH RQ6 [facility] Last Admin: 10/08/18 01:29 Dose: 3 ml Aspirin (Ecotrin) 81 mg PO DAILY [facility] Last Admin: 10/07/18 11:01 Dose: 81 mg Bisacodyl (Dulcolax) 10 mg PO DAILY PRN PRN Reason: Constipation Clopidogrel Bisulfate (Plavix) 75 mg PO DAILY [facility] Last Admin: 10/07/18 11:01 Dose: 75 mg Docusate Sodium (Colace) 100 mg PO BID [facility] Last Admin: 10/07/18 18:00 Dose: 100 mg Glipizide (Glucotrol) 10 mg PO ACBD [facility] Last Admin: 10/08/18 08:09 Dose: 10 mg Heparin Sodium (Porcine) (Heparin) 5,000 units SC Q12 [facility] Last Admin: 10/07/18 21:43 Dose: 5,000 units Sodium Chloride (Sodium Chloride 0.9%) 1,000 mls @ 100 mls/hr IV .Q10H [facility] Last Admin: 10/08/18 07:18 Dose: 100 mls/hr Insulin Aspart (Novolog) 0 unit SC ACHS [facility]; Protocol Last Admin: 10/08/18 07:44 Dose: Not Given Insulin Glargine (Lantus) 10 unit SC Q12H [facility] Last Admin: 10/07/18 22:58 Dose: 10 unit Lactulose (Enulose) 20 gm PO BID [facility] Last Admin: 10/07/18 19:00 Dose: Not Given Metformin HCl (Glucophage) 500 mg PO TID [facility] Last Admin: 10/07/18 11:00 Dose: 500 mg Metoprolol Tartrate (Lopressor) 12.5 mg PO Q12H [facility] Last Admin: 10/07/18 21:44 Dose: 12.5 mg Multivitamins (Hexavitamin) 1 tab PO DAILY [facility] Last Admin: 10/07/18 11:00 Dose: 1 tab Pantoprazole Sodium (Protonix Ec Tab) 40 mg PO DAILY [facility] Last Admin: 10/07/18 11:01 Dose: 40 mg Pneumococcal Polyvalent Vaccine (Pneumovax 23 Vaccine) 0.5 ml IM .ONCE ONE Stop: 10/08/18 10:01 Rosuvastatin Calcium (Crestor) [address] [facility] Last Admin: 10/07/18 21:44 Dose: 40 mg - Labs Labs: 10/06/18 17:31 10/07/18 16:56 - Constitutional Appears: Well, No Acute Distress - Head Exam Head Exam: ATRAUMATIC, NORMOCEPHALIC - ENT Exam ENT Exam: Mucous Membranes Moist - Cardiovascular Exam Cardiovascular Exam: RRR - GI/Abdominal Exam GI & Abdominal Exam: Soft - Extremities Exam Additional comments: b/l LE warm, motor/sensory intact - Neurological Exam Neurological Exam: Alert, Awake, Oriented x3 - Skin Skin Exam: Dry, Warm Assessment and Plan - Assessment and Plan (Free Text) Assessment: 63M with PVD Plan: - f/u CTA - will discuss further recs with Dr. Jeffery Blackwell
[2018-10-08] MEDS: Pantoprazole 40 mg EC Tab PO SCH (09:44)
[2018-10-08] MEDS: Multiple Vitamins Tab PO SCH (09:44)
[2018-10-08] MEDS ORDERED: Pneumococcal 23-Valent Vaccine IM ONE (10:00)
[2018-10-08] MEDS: (Lantus) Insulin Glargine, Recombinant SC SCH ×2 (10:06→22:02)
--- NOTE | 2018-10-08 23:48 | DS ---
REASON FOR ADMISSION: This is a 63-year-old male who was admitted for dehydration, acute renal failure with prerenal azotemia, and new-onset type 2 diabetes mellitus. COURSE OF HOSPITALIZATION: The patient was admitted to medical floor, and he was started on IV fluids. The patient was started also on both metformin/glipizide and Lantus. Blood sugar was normalized as well as the BUN and creatinine. The patient was noted to have dependent rubor, and he had a vascular surgery consult done by Dr. Gil. Angiogram was ordered and this would be followed as an outpatient. The patient will go home with his caregiver and power of admitted attorneys, Amira Godoy. FINAL DIAGNOSES: New-onset type 2 diabetes mellitus; dehydration; acute renal failure; chronic obstructive pulmonary disease, on home oxygen; peripheral vascular disease; status post cerebrovascular accident with right-sided weakness. Violeta Clark MD
[2018-10-09] MEDS: Albuterol-Ipratrop 3 mg / 0.5 (3 ml) UD INH SCH ×3 (01:28→13:51)
[2018-10-09 09:08] VITALS: RESP 20; O2SAT 95
[2018-10-09] MEDS: Multiple Vitamins Tab PO SCH (09:15)
[2018-10-09] MEDS: Pantoprazole 40 mg EC Tab PO SCH (09:15)
[2018-10-09] MEDS: (Novolog) Insulin Aspart, Recombinant 100 u/ml 10 ml vial SC SCH ×3 (09:16→17:02)
[2018-10-09] MEDS: Sodium Chloride 0.9% 1,000 ML IV SCH (09:17)
[2018-10-09] MEDS: (Lantus) Insulin Glargine, Recombinant SC SCH (10:47)
--- NOTE | 2018-10-09 11:56 | CT ---
Date of service: 10/07/2018 PROCEDURE: CT Angiography Abdomen, Pelvis and Lower Extremity with Contrast HISTORY: eval PVD COMPARISON: None available. TECHNIQUE: Technique: CT angiography of the abdomen, pelvis and bilateral lower extremities performed in the arterial phase of enhancement. Coronal and sagittal reformats, and well as rotating MIP images of the vessels generated at the workstation. Intravenous contrast dose: 150 mL of Visipaque 320 intravenously. Radiation dose: Total exam DLP = 2032.69 mGy-cm. This CT exam was performed using one or more of the following dose reduction techniques: Automated exposure control, adjustment of the mA and/or kV according to patient size, and/or use of iterative reconstruction technique. FINDINGS: CT ANGIOGRAPHY: ABDOMINAL AORTA:: No evidence of abdominal aortic aneurysm. Moderate atherosclerotic disease noted associated with scattered foci of calcification and raje-np-ixjhousy distal abdominal aorta mural thickening. MAJOR AORTIC BRANCHES: Celiac Ebro: The celiac is patent. Superior mesenteric artery: There are foci of calcification at the origin of the SMA which appears otherwise patent and normal in caliber. Inferior mesenteric artery: The ARMIN is patent. Renal arteries: Foci of atherosclerotic calcification noted at the origin of renal arteries right more than left. There is mild less than 50 percent stenosis at the origin of the right renal artery. The kidneys enhance symmetrically. PELVIC ARTERIES: Right Common Iliac: There is focal approximately 70 percent stenosis at the mid right common iliac artery. Right External Iliac: Foci of atherosclerotic disease without evidence of significant stenosis. Right Internal Iliac: Foci of mild stenosis at the mid and distal right internal iliac artery. Left Common Iliac: Diffuse atherosclerotic calcification without evidence of significant stenosis. Left External Iliac: Unremarkable. Left Internal Iliac: Foci of mild stenosis in the mid and distal left internal iliac artery RIGHT LOWER EXTREMITY ARTERIES: Right Common Femoral: Foci of atherosclerotic calcification without evidence of significant stenosis. Right Superficial Femoral: Mild mural thickening and small foci of calcification noted without evidence of significant stenosis. Right Profunda Femoris: Patent Right Popliteal:There is naku-xm-drjygfsk diffuse mural thickening and foci of mild less than 50 percent stenosis at the midportion. Right Anterior Tibial: Patent Right Tibioperoneal Trunk: Patent contains foci of calcification Right Posterior Tibial: Patent Right Peroneal: Patent seen up to the ankle. Right dorsalis pedis : Patent LEFT LOWER EXTREMITY ARTERIES: Left Common Femoral: Patent contains atherosclerotic calcification and mild mural thickening Left Superficial Femoral: Patent demonstrate multiple foci of mild less than 50 percent stenosis. Left Profunda Femoris: Patent Left Popliteal: Patent contains foci of atherosclerotic calcification and mild to moderate mural thickening Left Anterior Tibial: The anterior tibial artery is patent. Left Tibioperoneal Trunk: Patent contains small foci of calcification. Left Posterior Tibial: Patent Left Peronea: Patent Left Dorsalis pedis: Patent NON-ANGIOGRAPHIC ASPECT OF THE EXAM: LOWER THORAX: There are reticular opacities noted in the lung bases suspicious for lung fibrosis and interstitial lung disease LIVER: Mildly enlarged without evidence of discrete mass lesion. GALLBLADDER AND BILE DUCTS: Unremarkable. PANCREAS: Unremarkable. No gross lesion or ductal dilatation. SPLEEN: Unremarkable. ADRENALS: Unremarkable. No mass. KIDNEYS AND URETERS: Unremarkable. No hydronephrosis. No solid mass. STOMACH AND BOWEL: The stomach is not fully distended therefore cannot be evaluated. There are mildly dilated small bowel loops demonstrate ufun-tz-bspwjlkc diffuse enhancing wall thickening in the mid and lower abdomen of unclear etiology. The possibility of enteritis should be considered. The distal small bowel loops are collapsed APPENDIX: No evidence of appendicitis PERITONEUM: There is a small amount of free fluid in the pelvis LYMPH NODES: Unremarkable. No enlarged lymph nodes. BLADDER: Unremarkable. REPRODUCTIVE: The prostate and seminal vesicles are mildly enlarged. BONES: No acute fracture. OTHER FINDINGS: None. IMPRESSION: Focal approximately 70-75 percent stenosis at the mid right common iliac artery. Xhtd-my-nuvawmqz diffuse atherosclerotic disease associated with scattered foci of calcified plaques and mural thickening as discussed above. Three vessels runoff in both legs. Mildly dilated small bowel loops demonstrate abnormal rbgj-vz-vjdnxedi enhancing wall thickening in the mid and lower abdomen of uncertain etiology. The possibility of enteritis should be considered. Small amount of free fluid in the pelvis also of unclear etiology. Clinical correlation is suggested.
--- NOTE | 2018-10-09 14:56 | CP.PCM.PN ---
Subjective - Date & Time of Evaluation Date of Evaluation: 10/09/18 Time of Evaluation: 14:57 - Subjective Subjective: alert, awake, no acute distress. Objective - Vital Signs/Intake and Output Vital Signs (last 24 hours): Temp Pulse Resp BP Pulse Ox 98.5 F 70 20 145/79 95 10/09/18 07:00 10/09/18 07:00 10/09/18 07:00 10/09/18 07:00 10/09/18 07:00 Intake and Output: 10/09/18 10/09/18 06:59 18:59 Intake Total 750 380 Output Total 350 Balance 400 380 - Medications Medications: Current Medications Albuterol/Ipratropium (Duoneb 3 Mg/0.5 Mg (3 Ml) Ud) 3 ml INH RQ6 [facility] Last Admin: 10/09/18 13:51 Dose: 3 ml Aspirin (Ecotrin) 81 mg PO DAILY [facility] Last Admin: 10/09/18 09:15 Dose: 81 mg Bisacodyl (Dulcolax) 10 mg PO DAILY PRN PRN Reason: Constipation Clopidogrel Bisulfate (Plavix) 75 mg PO DAILY [facility] Last Admin: 10/09/18 09:15 Dose: 75 mg Docusate Sodium (Colace) 100 mg PO BID [facility] Last Admin: 10/09/18 09:15 Dose: 100 mg Glipizide (Glucotrol) 10 mg PO ACBD [facility] Last Admin: 10/09/18 09:19 Dose: 10 mg Heparin Sodium (Porcine) (Heparin) 5,000 units SC Q12 [facility] Last Admin: 10/09/18 09:14 Dose: 5,000 units Sodium Chloride (Sodium Chloride 0.9%) 1,000 mls @ 100 mls/hr IV .Q10H [facility] Last Admin: 10/09/18 09:17 Dose: Not Given Insulin Aspart (Novolog) 0 unit SC ACHS [facility]; Protocol Last Admin: 10/09/18 10:53 Dose: 2 unit Insulin Glargine (Lantus) 10 unit SC Q12H [facility] Last Admin: 10/09/18 10:47 Dose: Not Given Lactulose (Enulose) 20 gm PO BID [facility] Last Admin: 10/09/18 09:15 Dose: 20 gm Metformin HCl (Glucophage) 500 mg PO TID [facility] Last Admin: 10/07/18 11:00 Dose: 500 mg Metoprolol Tartrate (Lopressor) 12.5 mg PO Q12H [facility] Last Admin: 10/09/18 09:15 Dose: 12.5 mg Multivitamins (Hexavitamin) 1 tab PO DAILY [facility] Last Admin: 10/09/18 09:15 Dose: 1 tab Pantoprazole Sodium (Protonix Ec Tab) 40 mg PO DAILY [facility] Last Admin: 10/09/18 09:15 Dose: 40 mg Rosuvastatin Calcium (Crestor) 40 mg PO HS [facility] Last Admin: 10/08/18 22:01 Dose: 40 mg - Labs Labs: 10/06/18 17:31 10/07/18 16:56 Assessment and Plan - Assessment and Plan (Free Text) Assessment: 63 year old male admitted with uncontrolled diabetes, seen and examined. Awake, alert, no acute distress. Discharge plan for today as per DR Clark on glipizide and metformin for diabetes. Glucometer give, advised to check blood sugar daily. Advised to follow up in the office in 1week.
[2018-10-09 16:44] VITALS: BP 113/63; PULSE 63; TEMP 113
--- NOTE | 2018-10-10 14:33 | PN ---
DATE: 10/08/2018 SUBJECTIVE: The patient was seen on 10/08/2018 and he was not in any cardiopulmonary distress. Blood sugar was better controlled. PHYSICAL EXAMINATION: VITAL SIGNS: Blood pressure 110/68, temperature 98.1, respiratory rate 20, and pulse 60. HEENT: Pupils equal, reactive to light. Normal-appearing mucosa of the conjunctivae, oropharynx and nasal membrane mucosa. NECK: Supple. No JVD. No carotid bruit. No lymph node. No thyromegaly. CHEST AND LUNGS: Bilateral symmetrical expansion. Good air exchange. No rales. No rhonchi. CARDIOVASCULAR: PMI not localized. S1 and S2. No additional sounds. ABDOMEN: Normoactive bowel sounds. No tenderness. No organomegaly. No masses. EXTREMITIES: No cyanosis. No clubbing. No edema. CENTRAL NERVOUS SYSTEM: Alert, awake, oriented x2. Right-sided hemiparesis. ASSESSMENT: New onset type 2 diabetes mellitus with hyperglycemia, dehydration, acute renal failure. PLAN: Continue IV fluid and insulin coverage. Continue oral antihyperglycemic agents. Follow up with Vascular Surgery regarding the aortic angiogram that was done. Violeta Clark MD
--- NOTE | 2018-10-11 02:14 | DS ---
REASON FOR ADMISSION: This is a 63-year-old male with history of multiple medical problems, who was admitted for severe dehydration and blood sugar above 600. COURSE OF HOSPITALIZATION: The patient was admitted to medical floor, and he was started on IV fluid. The patient was started also on insulin and AccuCheks with insulin coverage as needed as well as oral antihyperglycemic agents and Lantus. The patient's blood sugar was normalized during this stay. Due to dependent rubor noticed on the patient right lower extremity, a vascular surgery consult was done and aortic angiogram was done. The patient was discharged home and is to follow up with Vascular Surgery and to start his oral antihyperglycemic agents and home monitoring of blood sugar by his caregiver. FINAL DIAGNOSES: Type 2 diabetes mellitus with hyperglycemia, dehydration, acute prerenal azotemia, hypertension, cerebrovascular disease with right-sided weakness, and peripheral vascular disease. Violeta Clark MD
== END 2018-10-09 19:53 | disposition home or self-care (01) | DRG 683 ==
LOC: C.ER 17:03 → C.3T 18:41
PROVIDERS: ADMIT Internal Medicine; ATTEND Internal Medicine
DX: N17.9 Acute kidney failure, unspecified (principal); I69.351 Hemiplegia and hemiparesis following cerebral infarction affecting right dominant side; E11.65 Type 2 diabetes mellitus with hyperglycemia; E78.5 Hyperlipidemia, unspecified; E86.0 Dehydration; E11.51 Type 2 diabetes mellitus with diabetic peripheral angiopathy without gangrene; E87.5 Hyperkalemia; I10 Essential (primary) hypertension; I25.10 Atherosclerotic heart disease of native coronary artery without angina pectoris; J44.9 Chronic obstructive pulmonary disease, unspecified; Z99.81 Dependence on supplemental oxygen; Z87.891 Personal history of nicotine dependence; Z95.1 Presence of aortocoronary bypass graft

== ENCOUNTER 2018-12-12 08:54 | Outpatient (CLI) | payer MEDICARE | END 2018-12-12 08:55 | disposition home or self-care (01) | LOC: C.LAB 08:54 | DX: E78.2 Mixed hyperlipidemia (principal); E11.9 Type 2 diabetes mellitus without complications ==